=== PATIENT | male | born 1945 | race Caucasian/White ===

== ENCOUNTER → 2019-02-15 | Outpatient (CLI) | payer MEDICARE, OTHER, SELFPAY | END | disposition home or self-care (01) | LOC: LABSPEC 15:30 | PROVIDERS: Family Provider Family Medicine; PCP Family Medicine; Referring Provider Dermatology; Visit Provider Dermatology | DX: C44.529 Squamous cell carcinoma of skin of other part of trunk (principal); T81.40XA Infection following a procedure, unspecified, initial encounter | CPT/HCPCS: 87070; 87077; 87186; 87205 ==

== ENCOUNTER → 2019-05-01 12:34 | Outpatient (CLI) | payer MEDICARE, OTHER, SELFPAY ==
[2019-05-02 13:07] LABS: SJOGREN'S Anti-SS-A test < 0.2 AI (0.0-0.9); SJOGREN'S Anti-SS-B test < 0.2 AI (0.0-0.9)
[2019-05-02 13:25] LABS: ANTINUCLEAR ANTIBODIES DIRECT Negative (Negative); Anti-dsDNA Ab <1 IU/mL (0-9)
[2019-05-04 12:08] LABS: Anti-Nuclear Antibody Test Negative (.)
== END ==
PROVIDERS: Family Provider Family Medicine; PCP Family Medicine; Referring Provider Dermatology; Visit Provider Dermatology
DX: L56.8 Other specified acute skin changes due to ultraviolet radiation (principal); L82.0 Inflamed seborrheic keratosis; L53.8 Other specified erythematous conditions
CPT/HCPCS: 36415; 86038; 86225; 86235

== ENCOUNTER → 2019-09-10 14:17 | Outpatient (CLI) | payer MEDICARE, OTHER, SELFPAY | PROVIDERS: Referring Provider Dermatology; Visit Provider Dermatology | DX: L02.414 Cutaneous abscess of left upper limb (principal); C44.311 Basal cell carcinoma of skin of nose | CPT/HCPCS: 87070; 87077; 87186; 87205 ==

== ENCOUNTER → 2019-11-29 10:05 | Outpatient (CLI) | payer MEDICARE, OTHER, SELFPAY ==
[2019-11-29 12:26] LABS: Absolute Lymphocyte Count 0.83 X10^3/uL (0.83-4.51); Absolute Neutrophil Count 4.3 X10^3/uL (2.0-7.7); Basophil# 0.05 X10^3/uL; Basophil% 0.8 % (0-1); Eosinophil# 0.15 X10^3/uL; Eosinophils% 2.5 % (0-5); Hematocrit 34.1 % (40-54); Hemoglobin 11.5 g/dL (13.0-16.5); Lymphocyte # 0.83 X10^3/ul (4.0); Lymphocyte % 14.1 % (19-41); Mean Corp Hgb Conc 33.7 g/dL (32-36); Mean Corpuscular Hgb 30.5 pg (27.0-32.0); Mean Corpuscular Volume 90.5 fL (80-94); Mean Platelet Vol. 8.2 fl (6.2-12.0); Monocyte# 0.49 X10^3/uL; Monocyte% 8.3 % (0-10); NRBC Flagged by Analyzer 0 % (0-5); Neutrophil # 4.33 X10^3/uL (2.7-7.7); Neutrophil % 73.6 % (47-70); Platelet Count 146 K/mm3 (150-450); RBC Distribution Width CV 15.1 % (11.6-14.6); RBC Distribution Width SD 49.3 fl (35.1-43.9); Red Blood Count 3.77 M/mm3 (4.6-6.2); White Blood Count 5.9 K/mm3 (4.4-11.0)
[2019-11-29 13:00] LABS: Anion Gap 7 (5-15); BUN 11 mg/dL (7-18); BUN/Creat Ratio 11.6 RATIO (10-20); Calcium,Total 9.1 mg/dL (8.5-10.1); Chloride 101 mmol/L (98-107); Cholesterol 182 mg/dL (200); Creatinine, Serum 0.95 mg/dL (0.70-1.30); EST Glomerular Filtration Rate 83 mL/min (>60); Est Glom Filt Rate - Afr Amer 100 mL/min (>60); Glucose 90 mg/dL (74-106); High Density Lipoprotein 46 mg/dL; Potassium 3.5 mmol/L (3.5-5.1); Sodium Level 139 mmol/L (136-145); Triglycerides 91 mg/dL; Very Low Density Lipoprotein 18 mg/dL (5-40)
== END ==
PROVIDERS: PCP Family Medicine; Referring Provider Family Medicine; Visit Provider Family Medicine
DX: I10 Essential (primary) hypertension (principal); D64.9 Anemia, unspecified; Z13.1 Encounter for screening for diabetes mellitus; Z13.220 Encounter for screening for lipoid disorders
CPT/HCPCS: 36415; 80048; 80061; 85025

== ENCOUNTER → 2019-12-06 10:19 | Outpatient (CLI) | payer MEDICARE, OTHER, SELFPAY ==
[2019-12-06 12:44] LABS: Ferritin 220 ng/mL (26-388); Iron 67 ug/dL (65-175); Iron Binding Capacity,Total 302 ug/dL (250-450); PERCENT IRON SATURATION 22.2 % (15.0-55.0)
== END ==
PROVIDERS: PCP Family Medicine; Referring Provider Family Medicine; Visit Provider Family Medicine
DX: D64.9 Anemia, unspecified (principal)
CPT/HCPCS: 36415; 82728; 83540; 83550

== ENCOUNTER → 2020-01-15 10:12 | Outpatient (CLI) | payer MEDICARE, OTHER, SELFPAY | PROVIDERS: PCP Family Medicine; Referring Provider Dermatology; Visit Provider Dermatology | DX: L02.411 Cutaneous abscess of right axilla (principal); Z09 Encounter for follow-up examination after completed treatment for conditions other than malignant neoplasm; Z86.14 Personal history of Methicillin resistant Staphylococcus aureus infection | CPT/HCPCS: 87070; 87077; 87186; 87205 ==

== ENCOUNTER → 2020-03-18 13:38 | Outpatient (CLI) | payer MEDICARE, OTHER, SELFPAY ==
[2020-03-18 15:03] LABS: Absolute Lymphocyte Count 0.85 X10^3/uL (0.83-4.51); Absolute Neutrophil Count 6.5 X10^3/uL (2.0-7.7); Basophil# 0.05 X10^3/uL; Basophil% 0.6 % (0-1); Eosinophil# 0.15 X10^3/uL; Eosinophils% 1.8 % (0-5); Hematocrit 33.3 % (40-54); Hemoglobin 11.9 g/dL (13.0-16.5); Lymphocyte # 0.85 X10^3/ul (4.0); Lymphocyte % 10.5 % (19-41); Mean Corp Hgb Conc 35.7 g/dL (32-36); Mean Corpuscular Hgb 30.4 pg (27.0-32.0); Mean Corpuscular Volume 85.2 fL (80-94); Mean Platelet Vol. 8.4 fl (6.2-12.0); Monocyte% 6.2 % (0-10); NRBC Flagged by Analyzer 0 % (0-5); Neutrophil # 6.52 X10^3/uL (2.7-7.7); Neutrophil % 80.4 % (47-70); Platelet Count 156 K/mm3 (150-450); RBC Distribution Width CV 15.8 % (11.6-14.6); RBC Distribution Width SD 47.9 fl (35.1-43.9); Red Blood Count 3.91 M/mm3 (4.6-6.2); White Blood Count 8.1 K/mm3 (4.4-11.0)
== END ==
PROVIDERS: PCP Family Medicine; Referring Provider Family Medicine; Visit Provider Family Medicine
DX: D64.9 Anemia, unspecified (principal)
CPT/HCPCS: 36415; 85025

== ENCOUNTER 2020-04-03 05:21 | Day surgery (SDC) | payer MEDICARE, OTHER, SELFPAY ==
[2020-03-28 08:22] VITALS: BMI 26.2
--- NOTE | 2020-03-28 08:41 | HP_ITS ---
Intake Vital Signs 03/28/20 Height 5 ft 10 in 03/28/20 Weight: 182 lb 6 oz 03/28/20 BMI 26.2 03/28/20 BP 149/85 H 03/28/20 Blood Pressure Location Rt brachial 03/28/20 Position Sitting 03/28/20 Respiration 18 03/28/20 Pulse 65 03/28/20 Pulse Source Monitor 03/28/20 Temp 97.8 F 03/28/20 Temp Source Temporal 03/28/20 Pulse Oximetry (%) 98 03/28/20 Oxygen Delivery Method room air Intake Visit Reasons: Inguinal Hernia Chief Complaint: right inguinal pain Counter Cutter Required: No Is patient in pain?: No Allergies No Known Allergies Allergy (Unverified 03/28/20 08:23) Medications amlodipine 10 mg tablet 10 mg PO DAILY 03/28/20 [History Confirmed 03/28/20] labetalol 300 mg tablet 300 mg PO BID 03/28/20 [History Confirmed 03/28/20] PFS Medical History Right inguinal pain (Acute) Hypertension (Chronic) Surgical History History of appendectomy (Acute) History of tonsillectomy (Acute) Family History Mother Breast cancer Cancer Lung Cancer Father Heart disease Social History (Updated 03/28/20 @ 08:[address] Guillaume Hand MD) Smoking Status: Never smoker alcohol intake: current alcohol intake frequency: a few times a month substance use type: does not use HPI HPI HPI: ANGELY STEINER is a 75 M who presents to the office today for HPI HPI Surgical H&P: Yes HPI: ANGELY STEINER is a 75 M who presents to the office today for Evaluation of a right inguinal hernia. Patient has had a mass and a bulge with discomfort in his right inguinal area that has been going on for approximately 1 month. He notices it when he is standing mowing his yard it goes back it spontaneously when he lies down to sleep at night it is been increasing in size. He cannot recall any trauma to the area. He has had no change in his bowel or bladder habits. ROS General General: No weight change, appetite, fatigue, colon cancer, breast cancer or weakness HEENT HEENT: No difficulty swallowing, eye injury, eye surgery, swollen glands or hoarseness Endo Endocrine: No thyroid disease, diabetes mellitus, thyroid cancer, Hair loss, heat intolerance or cold intolerance Skin Skin: Yes rash; no changing moles Breast Breast: No left breast lump, right breast lump, nipple discharge, breast pain, abnormal mammogram, abnormal US or breast enlargement Musc Musculoskeletal: No back problems, arthritis, rheumatoid arthritis, gout or joint pain Cardio Cardiovascular: No murmur, pacemaker, heart disease, atrial fibrillation, high blood pressure, heart attack, heart stent, palpitations, shortness of breat with exertion or chest pain Psych Psychiatric: No depression, anxiety or hearing voices Resp Respiratory: No shortness of breath, No sleep apnea, No cough, No COPD, No asthma, No emphysema, No wheezing Gastro Gastrointestinal: No abdominal pain, No nausea or vomiting, No diarrhea, No constipation, No blood in stool, No acid reflux, No hemorrhoids, No ulcers, No gallbladder problem, No black,tarry stools [place] Hematologic: No blood thinners, No blood disorders, No bleeding, No anemia, No blood clots Neuro Neurologic: No system reviewed and no additional complaints, except as docu, No as per HPI, No abnormal walking, No abnormal hearing, No abnormal movements, No abnormal speech, No behavioral changes, No burning sensations, No confusion, No seizure-like activity, No unsteadiness, No dizziness, No localized weakness, No frequent falls, No headache(s), No lack of coordination, No loss of vision, No memory loss, No numbness, No other visual disturbances, No radiating pain, No restless legs, No sensory deficit, No fainting, No tingling, No tremor(s), No weakness, No other Exam Const General: no acute distress, well developed, well hydrated Orientation: oriented to person, oriented to place, oriented to time [facility] Head: normocephalic, atraumatic Ears: external ears normal Mouth: moist mucous membranes Eyes Sclera: sclerae normal Pupils: normal by confrontation Neck Neck: no lymphadenopathy noted Neck mass: No Thyroid: thyroid normal, symmetrical Chest Chest palpation & inspection: normal inspection of the chest Breast Palpation: No nipple discharge Resp Effort & Inspection: normal respiratory effort Auscultation: clear to auscultation bilaterally Percussion: percussion normal Cardio Rate: regular rate Rhythm: regular rhythm Heart Sounds: no murmurs GI Palpation: soft, no hepatosplenomegaly, no masses, tender Rectal Exam: other Other: A reducible right inguinal hernia is palpated. His left side seems firm without signs of herniation or weakness Rectal exam deferred. Extrem General: normal to inspection, no clubbing, cyanosis or edema Assessment & Plan Problems 1. Right inguinal hernia K40.90 Plan My plan is to perform a Laparoscopic right inguinal hernia repair with mesh. The planned surgical procedure was discussed extensively with the patient. The risks, benefits, anticipated outcomes and possible complication were mentioned. The patient understands that all hernia repair surgery has a chance of recurrence and/or chronic post-operative pain. My staff has also explained the procedure in understandable terms and the patient was given the option to take printed material concerning the planned procedure. The patient had the opportunity to ask questions concerning the planned procedure. The patient freely consents to the planned procedure. Coding Level of Care Code Off vis,new,level 3 Diagnoses Right inguinal hernia K40.90 03/28/20 0841 <Electronically signed by Guillaume fitzpatrick MD> Date _ Guillaume Hand MD I have re-examined the patient. There are no clinical changes since date of exam.
[2020-04-03] VITALS (9 sets, daily range): BP systolic 128–149; BP diastolic 70–91; PULSE 53–66; RESP 16; TEMP 36.2–37.1; O2SAT 98–100; BMI 25.9
--- NOTE | 2020-04-03 05:26 | EKG12_ITS ---
Test Reason : PRE OP Blood Pressure : / mmHG Vent. Rate : 065 BPM Atrial Rate : 065 BPM P-R Int : 186 ms QRS Dur : 096 ms QT Int : 440 ms P-R-T Axes : 000 031 007 degrees QTc Int : 457 ms Normal sinus rhythm Nonspecific ST abnormality Abnormal ECG When compared with ECG of 11-AUG-2001 05:25, Nonspecific T wave abnormality no longer evident in Anterolateral leads QT has lengthened Confirmed by VIKY CRONIN, BALJINDER ([id number]), editor continuity and script FLORY ROBBINS ([id number]) on 04/07/2020 11:52:48 AM Referred By: Guillaume Hand Confirmed By:SHITAL SALMON MD
[2020-04-03] MEDS: Lactated Ringers 1,000 ML 100 ML IV ×2 (06:16→10:09)
[2020-04-03] MEDS: Cefazolin 2 GM in 0.9% Normal Saline 100 ML IV (07:30)
--- NOTE | 2020-04-03 07:43 | PCM.DC.HER ---
Discharge Diet: Light diet - advance as tolerated Discharge Activity: Return to Normal Activity, May Drive - when you are no longer taking narcotic pain medications., May Shower - with the bandage in place 1-2 days after surgery. Lifting Restrictions: 20 pounds for 8 weeks. Additional Activity Instructions:: Climbing stairs is fine, walking is encouraged. Sitting in bed may be uncomfortable. Sitting up using your lateral muscles (sitting up sideways) is usually more comfortable. Do not drive, work heavy equipment of sign legal documents for 24 hours. If your hernia repair was an ingunial repair, you may have scrotal swelling, an ice pack and/or athletic support can provide more comfort. Pain medications may cause nausea, you should typically eat light foods as you take your pain medications. Pain medications may also cause constipation. If you have difficulty with this, discuss with your doctor. Call your doctor if your incision/area has: Continuous Slow Oozing, Sudden Increased Bleeding, Increased Pain/ Swelling, Increased Redness, Foul Smelling Discharge Call your doctor if you observe: Fever of 101 or Higher Suture Line Care: Avoid Pulling/Pushing, Avoid Pinching/Bending Additional Dressing/Incision Instructions:: Leave the operative bandage on for 2-3 days. When you remove the bandage, leave the steri-strips on place until your follow up appointment or they fall off. Allergies/Adverse Reactions: Allergies No Known Allergies Allergy (Unverified 04/02/20 08:12) Medications to take at Discharge amlodipine 10 mg tablet 10 mg PO DAILY 03/28/20 labetalol 300 mg tablet 300 mg PO BID 03/28/20 Oxycodone HCl/Acetaminophen [Percocet 5/325] 1 - 2 tablet PO Q4H PRN PRN 6 Days #30 tablet 04/03/20 The following prescriptions were given: Oxycodone HCl/Acetaminophen [Percocet 5/325] 1 - 2 tablet PO Q4H PRN PRN 6 Days #30 tablet PRN Reason: Pain Transmission Status: Received by [facility] Primary Care Physician: Geremias Morgan MD [Primary Care Provider] - Test Results: Test results from this visit will be discussed in further detail at your follow-up appointment, if applicable. Please Follow Up With: Guillaume Hand MD - [phone] When: Plan to have a follow up appointment in 7 days. Call to schedule.
[2020-04-03] MEDS: Bupivacaine Mpf 0.5% 30 ML VIAL (07:47)
--- NOTE | 2020-04-03 08:21 | PCM.OPRPT ---
Problem List (1) Right inguinal hernia Status: Acute Report of Operation Date of Procedure: 04/03/20 Pre-Operative Diagnosis: Right inguinal hernia Post-Operative Diagnosis: Same Surgery/Procedure Performed:: Laparoscopic repair of right inguinal hernia. Bard 3D max mesh lot number [id number] reference #[id number] Type of Anesthesia:: General Anesthesiologist: Shankar Nguyen Estimated Blood Loss (mL): < 25 cc Fluids Replaced: 1 L lr Description of Procedure: Patient was brought into the operating room. Placed in the supine position. Under excellent general trach intubation abdomen was sterilely prepped and draped in the usual fashion. Local was injected supraumbilically. Dissection was carried down to the fascia. The fascia grasped with a [place]. Varies needle was placed inside the abdomen. The abdomen was insufflated to 15 torr. A 10/12 trocar was placed without difficulty. It was flank by 2 #5 trochars placed under direct visualization. Patient was placed in the headdown and rotated to the left position. I scored the peritoneum on the right. I dissected down to Derek's ligament I then dissected laterally identifying the cord and vessel structures I dissected them free from the peritoneum this took quite a bit of time this was actually fairly adherent. I then dissected further laterally. I good pneumostasis patient did have an indirect inguinal hernia no direct hernia was identified I fashioned a large 3D max mesh into the wound. I tacked it to Derek's ligament with a pro-tacker I tacked it superiorly and laterally using sparing tacks. I reperitonealized the area using the pro-tacker I covered the mesh completely. Ilioinguinal nerve block was performed. I deflated the abdomen and remove the trochars fascia the umbilical port was closed with a [id number] stitch of 0 Vicryl. Skin incisions were closed with subcuticular stitches of 4-0 Monocryl. Steri-Strips were applied sterile dressings were applied and the patient tolerated the procedure well. - Admit VTE Documentation VTE Present on Admission: No VTE Mechan Device Prophylaxis: SCD's VTE Pharm Prophylaxis ordered?: No Reason prophylaxis not ordered:: Treatment Not Indicated [id number]: [id number] Lap ing hernia repair init
== END 2020-04-03 13:38 | disposition home or self-care (01) ==
LOC: SDC 05:25 → AC 05:25
PROVIDERS: PCP Family Medicine; Referring Provider Surgery; Visit Provider Surgery
PROC: (CPT 49650; principal; 2020-04-03 07:10)
DX: K40.90 Unilateral inguinal hernia, without obstruction or gangrene, not specified as recurrent (principal); I10 Essential (primary) hypertension; Z11.59 Encounter for screening for other viral diseases
CPT/HCPCS: 49650; 87635; 93005; G2023; J7120; C1781; U0004

== ENCOUNTER → 2020-09-02 10:33 | Outpatient (CLI) | payer MEDICARE, OTHER, SELFPAY ==
[2020-04-03 05:49] VITALS: BMI 25.9
[2020-09-02 12:25] LABS: Absolute Lymphocyte Count 0.57 X10^3/uL (0.83-4.51); Absolute Neutrophil Count 7.6 X10^3/uL (2.0-7.7); Basophil# 0.06 X10^3/uL; Basophil% 0.7 % (0-1); Eosinophil# 0.14 X10^3/uL; Eosinophils% 1.5 % (0-5); Hematocrit 31.4 % (40-54); Hemoglobin 10.7 g/dL (13.0-16.5); Lymphocyte # 0.57 X10^3/ul (4.0); Lymphocyte % 6.2 % (19-41); Mean Corp Hgb Conc 34.1 g/dL (32-36); Mean Corpuscular Hgb 30.7 pg (27.0-32.0); Mean Corpuscular Volume 90.2 fL (80-94); Monocyte# 0.73 X10^3/uL; NRBC Flagged by Analyzer 0 % (0-5); Neutrophil # 7.58 X10^3/uL (2.7-7.7); Neutrophil % 83.1 % (47-70); POSITIVE DIFFERENTIAL YES; Platelet Count 162 K/mm3 (150-450); RBC Distribution Width CV 16.9 % (11.6-14.6); RBC Distribution Width SD 55.8 fl (35.1-43.9); Red Blood Count 3.48 M/mm3 (4.6-6.2); White Blood Count 9.1 K/mm3 (4.4-11.0)
[2020-09-02 12:33] LABS: Differential Indicated SCAN CRITERIA MET
[2020-09-02 13:24] LABS: Hypochromasia RARE; Ovalocyte 3+; Platelet Estimate ADEQUATE (ADEQ)
== END ==
PROVIDERS: PCP Family Medicine; Referring Provider Ophthalmology; Visit Provider Ophthalmology
DX: H53.121 Transient visual loss, right eye (principal)
CPT/HCPCS: 36415; 85025

== ENCOUNTER → 2020-09-05 08:41 | Outpatient (CLI) | payer MEDICARE, OTHER, SELFPAY ==
[2020-04-03 05:49] VITALS: BMI 25.9
--- NOTE | 2020-09-05 08:44 | CDU_ITS ---
Reason For Study: vision loss Rt. Velocities/BP Lt. Velocities/BP Prox CCA 111.2/14.7 cm/sec. Prox CCA 156.9/18.1 cm/sec. Mid CCA 83.3/11.6 cm/sec. Mid CCA 94.8/14.4 cm/sec. Dist CCA 63.7/16.8 cm/sec. Dist CCA 89.3/16.3 cm/sec. Prox ICA 74.2/12.9 cm/sec. Prox ICA 77.3/18.3 cm/sec. Mid ICA 89.8/22.0 cm/sec. Mid ICA 98.1/20.8 cm/sec. Dist ICA 120.2/41.8 cm/sec. Dist ICA 82.6/11.7 cm/sec. Rt. ICA/CCA = 120.2/111.2=1.1. Lt. ICA/CCA = 98.1/94.8=1.0. Prox ECA 85.9/12.9 cm/sec. Prox ECA 85.6/18.1 cm/sec. Rt. Vert. 20.0/0.0 cm/sec. Lt. Vert. 87.5/12.8 cm/sec. Right Extracranial There is no significant atherosclerotic plaque noted in the right common carotid artery. There is heterogeneous, smooth atherosclerotic plaque noted in the right internal carotid artery. The atherosclerotic plaque causes acoustic shadowing. There is intimal thickening but no significant atherosclerotic plaque noted in the right external carotid artery. Antegrade flow is noted in the right vertebral artery. There is homogeneous, irregular atherosclerotic plaque noted in the right bulb. Left Extracranial There is intimal thickening but no significant atherosclerotic plaque noted in the left common carotid artery. There is heterogeneous, smooth atherosclerotic plaque noted in the left internal carotid artery. The atherosclerotic plaque causes acoustic shadowing. There is intimal thickening but no significant atherosclerotic plaque noted in the left external carotid artery. Antegrade flow is noted in the left vertebral artery. There is heterogeneous, irregular atherosclerotic plaque noted in the left bulb. Procedure Carotid Duplex [id number]. The study was technically difficult. Exam performed in department. Interpretation Summary Mild (<50%) stenosis right extracranial internal carotid. Mild (<50%) stenosis left extracranial internal carotid. A high resistance waveform and loss of diastolic flow are noted in the right vertebral artery, suggesting the presence of distal right vertebral artery stenosis or occlusion. Flow within the left verterbral artery is antegrade. Ordering Physician: Omar Trevino Referring Physician: Geremias Morgan Performed By: Trudi Sheldon, GALLITO, RVT
== END ==
PROVIDERS: PCP Family Medicine; Referring Provider Ophthalmology; Visit Provider Ophthalmology
DX: H53.121 Transient visual loss, right eye (principal)
CPT/HCPCS: 93880

== ENCOUNTER → 2020-10-08 10:27 | Outpatient (CLI) | payer MEDICARE, OTHER, SELFPAY ==
[2020-04-03 05:49] VITALS: BMI 25.9
[2020-10-10 20:07] LABS: Endomysial Antibody IgA Negative (Negative)
[2020-10-13 04:31] LABS: Deamidated Gliadin IgA 4 units (0-19); Deamidated Gliadin IgG 3 units (0-19); Immunoglobulin A 182 mg/dL (61-437); t-Transglutaminase IgA <2 U/mL (0-3)
== END ==
PROVIDERS: PCP Family Medicine; Referring Provider Dermatology; Visit Provider Dermatology
DX: C44.729 Squamous cell carcinoma of skin of left lower limb, including hip (principal); L30.9 Dermatitis, unspecified
CPT/HCPCS: 36415; 82784; 83516; 86255

== ENCOUNTER 2020-12-31 09:01 | Outpatient (RCR) | payer MEDICARE, OTHER, SELFPAY ==
[2020-04-03 05:49] VITALS: BMI 25.9
== END 2020-12-31 23:59 ==
LOC: IMMUN 09:01
PROVIDERS: PCP Family Medicine; Visit Provider Family Medicine
DX: Z23 Encounter for immunization (principal)
CPT/HCPCS: 0011A; 0012A

== ENCOUNTER 2022-01-19 09:00 | Outpatient (CLI) | payer MEDICARE, OTHER, SELFPAY ==
[2022-01-19 10:10] LABS: Absolute Neutrophil Count 4.9 X10^3/uL (2.0-7.7); Basophil# 0.05 X10^3/uL; Basophil% 0.8 % (0-1); Eosinophil# 0.21 X10^3/uL; Eosinophils% 3.2 % (0-5); Hemoglobin 11.9 g/dL (13.0-16.5); Lymphocyte % 12.3 % (19-41); Mean Corpuscular Hgb 30.8 pg (27.0-32.0); Mean Corpuscular Volume 88.1 fL (80-94); Mean Platelet Vol. 9.1 fl (6.2-12.0); Monocyte# 0.51 X10^3/uL; Monocyte% 7.8 % (0-10); NRBC Flagged by Analyzer 0 % (0-5); Neutrophil # 4.92 X10^3/uL (2.7-7.7); Neutrophil % 75.6 % (47-70); Platelet Count 149 K/mm3 (150-450); RBC Distribution Width CV 15.3 % (11.6-14.6); RBC Distribution Width SD 49.1 fl (35.1-43.9); Red Blood Count 3.86 M/mm3 (4.6-6.2); White Blood Count 6.5 K/mm3 (4.4-11.0)
[2022-01-19 10:34] LABS: Vitamin B12 290 pg/mL (211-911)
[2022-01-19 10:49] LABS: ALB/GLOB Ratio 1.2 RATIO (0.9-2.4); AST(SGOT) 20 U/L (15-37); Alanine Aminotransfer ALT/SGPT 21 U/L (16-61); Alkaline Phosphatase 123 U/L (45-117); Anion Gap 5 (5-15); BUN 15 mg/dL (7-18); BUN/Creat Ratio 16.9 RATIO (10-20); Calcium,Total 9.2 mg/dL (8.5-10.1); Chloride 104 mmol/L (98-107); Creatinine, Serum 0.89 mg/dL (0.70-1.30); EST Glomerular Filtration Rate 89 mL/min (>60); Est Glom Filt Rate - Afr Amer 108 mL/min (>60); Ferritin 183 ng/mL (26-388); Globulin 3.4 g/dL (2.2-4.2); Glucose 99 mg/dL (74-106); Iron 83 ug/dL (65-175); Iron Binding Capacity,Total 336 ug/dL (250-450); Magnesium 1.7 mg/dL (1.6-2.6); PSA,Total - Annual Screen 5.38 ng/mL (0.00-4.00); Potassium 2.9 mmol/L (3.5-5.1); Protein, Total 7.4 g/dL (6.4-8.2); Sodium Level 139 mmol/L (136-145); Uric Acid 7.1 mg/dL (3.5-7.2)
[2022-01-19 10:54] LABS: Microalbumin:Creatinine Ratio 315.8 mg/g CRE (<30 mg/g CRE)
[2022-01-19 16:10] LABS: Cholesterol 182 mg/dL (200); High Density Lipoprotein 54 mg/dL; Triglycerides 61 mg/dL; Very Low Density Lipoprotein 12 mg/dL (5-40)
== END 2022-01-19 23:59 | disposition home or self-care (01) ==
LOC: MFPLAB 09:02
PROVIDERS: PCP Family Medicine; Referring Provider Family Medicine; Visit Provider Family Medicine
DX: D64.9 Anemia, unspecified (principal); I48.91 Unspecified atrial fibrillation; I10 Essential (primary) hypertension; Z12.5 Encounter for screening for malignant neoplasm of prostate
CPT/HCPCS: 36415; 80053; 80061; 82043; 82570; 82607; 82728; 83540; 83550; 83735; 84153; 84550; 85025; G0103

== ENCOUNTER 2022-02-19 12:12 | Outpatient (CLI) | payer MEDICARE, OTHER, SELFPAY ==
--- NOTE | 2022-02-19 12:15 | RAD_ITS ---
STUDY: XR Chest 2 Views 02/19/2022 12:24 PM REASON FOR EXAM: Male, 76 years old. CHEST PAIN Atrial Fibrillation COMPARISON: None TECHNIQUE: XR Chest 2 Views FINDINGS: There is no demonstrated pleural abnormality. Normal heart size. Normal mediastinum. Normal wei. Prominent appearing increased interstitial lung markings. Normal visualized pulmonary arteries. There is atherosclerotic calcification of the aortic arch with tortuosity. There are diffuse degenerative changes of the visualized thoracic spine. There is degenerative osteoarthritis of the bilateral shoulders. There is no demonstrated abnormality of the visualized soft tissue structures of the upper abdomen. RAD/Chest PA and Lateral IMPRESSION: There are no acute findings. Electronically Signed: Drew Roy MD at 17:00 EDT ,
[2022-02-19 12:56] LABS: Absolute Lymphocyte Count 0.86 X10^3/uL (0.83-4.51); Absolute Neutrophil Count 7.7 X10^3/uL (2.0-7.7); Basophil# 0.07 X10^3/uL; Basophil% 0.7 % (0-1); Eosinophil# 0.15 X10^3/uL; Eosinophils% 1.6 % (0-5); Hematocrit 37.2 % (40-54); Hemoglobin 12.8 g/dL (13.0-16.5); Lymphocyte # 0.86 X10^3/ul (0.83-4.51); Mean Corp Hgb Conc 34.4 g/dL (32-36); Mean Corpuscular Hgb 30.4 pg (27.0-32.0); Mean Corpuscular Volume 88.4 fL (80-94); Mean Platelet Vol. 8.1 fl (6.2-12.0); Monocyte# 0.65 X10^3/uL; Monocyte% 6.8 % (0-10); NRBC Flagged by Analyzer 0 % (0-5); Neutrophil % 80.9 % (47-70); Platelet Count 158 K/mm3 (150-450); RBC Distribution Width CV 15.4 % (11.6-14.6); RBC Distribution Width SD 49.7 fl (35.1-43.9); Red Blood Count 4.21 M/mm3 (4.6-6.2); White Blood Count 9.5 K/mm3 (4.4-11.0)
[2022-02-19 13:45] LABS: Anion Gap 6 (5-15); BUN 16 mg/dL (7-18); BUN/Creat Ratio 18.5 RATIO (10-20); Calcium,Total 8.9 mg/dL (8.5-10.1); Chloride 102 mmol/L (98-107); Creatinine, Serum 0.86 mg/dL (0.70-1.30); EST Glomerular Filtration Rate 92 mL/min (>60); Est Glom Filt Rate - Afr Amer 111 mL/min (>60); Glucose 105 mg/dL (74-106); Magnesium 1.9 mg/dL (1.6-2.6); Potassium 3.6 mmol/L (3.5-5.1); Sodium Level 139 mmol/L (136-145); Thyroid Stim Hormone (TSH) 1.59 uIU/mL (0.358-3.74)
== END 2022-02-19 23:59 | disposition home or self-care (01) ==
LOC: RAD 12:15 → LAB 12:27
PROVIDERS: PCP Family Medicine; Referring Provider Internal Medicine Cardiovascular Disease; Visit Provider Internal Medicine Cardiovascular Disease
DX: I48.91 Unspecified atrial fibrillation (principal); I10 Essential (primary) hypertension
CPT/HCPCS: 36415; 71046; 80048; 83735; 84443; 85025

== ENCOUNTER → 2022-04-01 | Outpatient (CLI) | payer MEDICARE, OTHER, SELFPAY ==
[2022-04-01 10:46] LABS: Anion Gap 7 (5-15); BUN 20 mg/dL (7-18); BUN/Creat Ratio 23.3 RATIO (10-20); Calcium,Total 9.1 mg/dL (8.5-10.1); Chloride 103 mmol/L (98-107); Creatinine, Serum 0.86 mg/dL (0.70-1.30); EST Glomerular Filtration Rate 92 mL/min (>60); Est Glom Filt Rate - Afr Amer 112 mL/min (>60); Glucose 101 mg/dL (74-106); Potassium 3.7 mmol/L (3.5-5.1); Sodium Level 138 mmol/L (136-145)
== END | disposition home or self-care (01) ==
LOC: MFPLAB 08:09
PROVIDERS: PCP Family Medicine; Referring Provider Family Medicine; Visit Provider Family Medicine
DX: E87.6 Hypokalemia (principal)
CPT/HCPCS: 36415; 80048

== ENCOUNTER → 2022-04-15 | Outpatient (CLI) | payer MEDICARE, OTHER, SELFPAY ==
[2022-04-15 10:21] LABS: Basophil# 0.05 X10^3/uL; Basophil% 0.6 % (0-1); Eosinophil# 0.22 X10^3/uL; Eosinophils% 2.7 % (0-5); Hemoglobin 12.4 g/dL (13.0-16.5); Lymphocyte % 12.4 % (19-41); Mean Corp Hgb Conc 35.4 g/dL (32-36); Mean Corpuscular Volume 87.5 fL (80-94); Mean Platelet Vol. 8.4 fl (6.2-12.0); Monocyte# 0.71 X10^3/uL; Monocyte% 8.8 % (0-10); NRBC Flagged by Analyzer 0 % (0-5); Neutrophil # 6.02 X10^3/uL (2.7-7.7); Neutrophil % 74.4 % (47-70); Platelet Count 140 K/mm3 (150-450); RBC Distribution Width CV 15.8 % (11.6-14.6); RBC Distribution Width SD 49.6 fl (35.1-43.9); White Blood Count 8.1 K/mm3 (4.4-11.0)
[2022-04-15 10:39] LABS: Anion Gap 7 (5-15); BUN 17 mg/dL (7-18); Calcium,Total 8.8 mg/dL (8.5-10.1); Chloride 103 mmol/L (98-107); EST Glomerular Filtration Rate 88 mL/min (>60); Est Glom Filt Rate - Afr Amer 106 mL/min (>60); Glucose 101 mg/dL (74-106); Magnesium 1.7 mg/dL (1.6-2.6); Potassium 2.9 mmol/L (3.5-5.1); Sodium Level 140 mmol/L (136-145)
== END | disposition home or self-care (01) ==
LOC: MFPLAB 08:51
PROVIDERS: PCP Family Medicine; Referring Provider Family Medicine; Visit Provider Family Medicine
DX: I10 Essential (primary) hypertension (principal); D64.9 Anemia, unspecified
CPT/HCPCS: 36415; 80048; 83735; 85025

== ENCOUNTER → 2022-05-03 | Outpatient (CLI) | payer MEDICARE, OTHER, SELFPAY ==
--- NOTE | 2022-05-03 06:48 | ECHOD_ITS ---
Reason For Study: Afib, Aflutter Procedure This was a 2D Doppler, Color Flow transthoracic echocardiogram. The exam was of adequate technical quality. Exam performed in department. Left Ventricle Normal LV size. Left ventricular systolic function is normal. The estimated ejection fraction is 60 %. Unable to assess diastolic dysfunction. No regional wall motion abnormalities noted. Right Ventricle Normal RV size. Normal systolic function. Atria The left atrium is severely enlarged. The right atrium is moderately enlarged. No doppler evidence for ASD. Mitral Valve There is no mitral annular calcification. Mild focal mitral valve calcification of the posterior leaflet. Mild-Moderate (1-2+) mitral valve insufficiency. Tricuspid Valve Normal tricuspid valve. Moderate (2+) eccentric tricuspid valve insufficiency. Right ventricular systolic pressure estimated to be 52 mmHg. Aortic Valve Trisinus/trileaflet aortic valve. Mild diffuse aortic valve thickening. Mild focal aortic valve calcification. Trivial aortic valve insufficiency. Pulmonic Valve The pulmonic valve is not well visualized. Moderately severe (3+) pulmonic valve insufficiency. Great Vessels Normal sized aortic root. Pericardium/Pleural No pericardial effusion. MMode/2D Measurements & Calculations LVIDd: 5.0 cm IVSd: 1.2 cm Ao root diam: 3.6 cm LVIDs: 3.6 cm LVPWd: 1.2 cm RVDd: 3.1 cm FS: 27.4 % LAV(MOD-bp): 143.7 ml LVAd ap4: 23.8 cm2 LVAd ap2: 26.7 cm2 LAV(MOD-bp) Indexed: 71.2 ml/m2 LVLd ap4: 7.1 cm LVLd ap2: 7.8 cm LAV(MOD-sp2): 152.0 ml EDV(MOD-sp4): 66.4 ml EDV(MOD-sp2): 74.0 ml LAV(MOD-sp4): 134.2 ml EDV(sp4-el): 68.0 ml EDV(sp2-el): 77.1 ml LVAs ap4: 14.6 cm2 LVAs ap2: 16.0 cm2 LVLs ap4: 6.6 cm LVLs ap2: 7.0 cm ESV(MOD-sp4): 29.3 ml ESV(MOD-sp2): 32.5 ml ESV(sp4-el): 27.4 ml ESV(sp2-el): 31.0 ml EF(MOD-sp4): 55.9 % EF(MOD-sp2): 56.1 % EF(sp4-el): 59.7 % SV(MOD-sp4): 37.1 ml SV(MOD-sp2): 41.5 ml SV(sp4-el): 40.6 ml LA dimension(2D): 5.2 cm LA A4 area: 35.7 cm2 RA A4 area: 24.3 cm2 Doppler Measurements & Calculations MV E max hari: 89.3 cm/sec Ao V2 max: 111.9 cm/sec LV V1 max: 86.1 cm/sec Ao max P.0 mmHg LV V1 max P.0 mmHg Ao V2 mean: 83.8 cm/sec Ao mean P.0 mmHg Ao V2 VTI: 21.4 cm PA V2 max: 86.7 cm/sec PI end-d hari: 145.4 cm/sec TR max hari: 332.8 cm/sec TR max P.3 mmHg ECHO/Echo Complete Interpretation Summary Left ventricular systolic function is normal. The estimated ejection fraction is 60 %. The left atrium is severely enlarged. The right atrium is moderately enlarged. Mild focal mitral valve calcification of the posterior leaflet. Mild-Moderate (1-2+) mitral valve insufficiency. Moderate (2+) eccentric tricuspid valve insufficiency. Mild diffuse aortic valve thickening. Mild focal aortic valve calcification. Trivial aortic valve insufficiency. Moderately severe (3+) pulmonic valve insufficiency. Right ventricular systolic pressure estimated to be 52 mmHg. Unable to assess diastolic dysfunction. Ordering Physician: Al Figueroa Referring Physician: Shankar Callahan Performed By: America Paulino, GALLITO, RVT
--- NOTE | 2022-05-03 10:47 | STRESSREP ---
Stress Test Report Date: 05-03-2022 Procedure: Pharmacologic stress nuclear imaging study Indications: Atrial fibrillation; hypertension; history of pericarditis Consent: Per the patient Procedure: The patient underwent pharmacologic (Regadenoson 0.4mg ) evaluation with a peak heart rate of 111 beats per minute (76%predicted maximal heart rate) and a peak blood pressure of 170/100 mmHg. The baseline ECG demonstrated atrial fibrillation; PVC; nonspecific ST/T wave abnormality. The peak pharmacologic ECG demonstrated continued atrial fibrillation; PVC; continued nonspecific ST/T wave abnormality. There were occasional PVCs pretest, during pharmacologic infusion, and recovery. There was no complaint of chest discomfort during pharmacologic infusion or recovery. The examination was discontinued secondary to completion of protocol. Impression: 1. Pharmacologic (Regadenoson) evaluation 2. Peak pharmacologic ECG with with no obvious ECG changes. 3. There were no cardiac dysrhythmias pretest, during pharmacologic infusion, or recovery. 4. Nuclear images pending Myocardial perfusion imaging study: Technique: The patient was injected with 11.6 millicuries of technetium 99m Cardiolite and subsequently rest SPECT Cardiolite nuclear imaging was obtained in the horizontal long, vertical long, and short axis views. The patient underwent pharmacologic (Regadenoson) evaluation with a peak heart rate of 111 beats per minute (76% percent predicted maximal heart rate) and a peak blood pressure of 170/100 mmHg. The patient was injected with 33.1 millicuries of technetium 99m Cardiolite and subsequently stress SPECT Cardiolite nuclear imaging was obtained in the horizontal long, vertical long, and short axis views. A gated Cardiolite study at peak stress was obtained. Interpretation: Rest and stress SPECT Cardiolite nuclear imaging status post realignment, normalization, and attenuation correction demonstrate relative uniform tracer uptake and myocardial perfusion appearing within normal limits. There is end systolic thickening and brightening. The gated Cardiolite study demonstrates myocardial thickening and inward wall motion. The reported LVEF is 53%. Impression: 1. Rest and stress SPECT Cardiolite nuclear imaging demonstrate relative uniform tracer uptake and myocardial perfusion appearing within normal limits. 2. The gated Cardiolite study reports an LVEF of 53%. This note was generated with Apptioation software. It may contain incorrect words, spelling, and punctuation that were not noted in checking the note before signing.
== END | disposition home or self-care (01) ==
LOC: CVS 06:46
PROVIDERS: PCP Family Medicine; Referring Provider Internal Medicine Cardiovascular Disease; Visit Provider Internal Medicine Cardiovascular Disease
DX: R94.31 Abnormal electrocardiogram [ECG] [EKG] (principal); I48.91 Unspecified atrial fibrillation; I48.92 Unspecified atrial flutter; I10 Essential (primary) hypertension
CPT/HCPCS: 78452; 93017; 93306; A9500; A4216; J2785

== ENCOUNTER → 2022-05-17 | Outpatient (CLI) | payer MEDICARE, OTHER, SELFPAY ==
--- NOTE | 2022-05-17 09:21 | RAD_ITS ---
STUDY: X-RAY LEFT FOOT, great toe REASON FOR EXAM: Male, 77 years old. Pain and swelling TECHNIQUE: 3 view(s) of the toe were obtained. COMPARISON: None. FINDINGS: Bones are demineralized There is an acute nondisplaced fracture in the proximal medial aspect of the distal phalanx of the great toe with soft tissue swelling Normal visualized metatarsus. There is arthrosis of the metatarsophalangeal (M.T.P.) joint. Degenerative arthrosis of the interphalangeal joint. Age consistent PIP and DIP joint arthrosis and the lesser toes. Nonspecific soft tissue swelling. RAD/Toe(s) Min 2 Views IMPRESSION: Osteopenia with acute, nondisplaced fracture in the proximal medial corner of the distal phalanx of the great toe with soft tissue swelling Polyarticular arthrosis No other demonstrated fracture Electronically Signed: Akshat Curran MD at 11:49 EDT ,
[2022-05-17 12:15] LABS: Absolute Lymphocyte Count 0.77 X10^3/uL (0.83-4.51); Absolute Neutrophil Count 7.7 X10^3/uL (2.0-7.7); Basophil# 0.05 X10^3/uL; Basophil% 0.5 % (0-1); Eosinophil# 0.11 X10^3/uL; Eosinophils% 1.2 % (0-5); Hemoglobin 12.4 g/dL (13.0-16.5); Lymphocyte # 0.77 X10^3/ul (0.83-4.51); Lymphocyte % 8.1 % (19-41); Mean Corp Hgb Conc 33.5 g/dL (32-36); Mean Corpuscular Hgb 31.2 pg (27.0-32.0); Mean Platelet Vol. 8.8 fl (6.2-12.0); Monocyte% 8.4 % (0-10); NRBC Flagged by Analyzer 0 % (0-5); Neutrophil # 7.72 X10^3/uL (2.7-7.7); Neutrophil % 80.8 % (47-70); Platelet Count 224 K/mm3 (150-450); RBC Distribution Width SD 54.7 fl (35.1-43.9); RET-HE 30.8 pg (30-35); Red Blood Count 3.98 M/mm3 (4.6-6.2); Reticulocyte Count 2.47 % (0.5-1.5); White Blood Count 9.6 K/mm3 (4.4-11.0)
[2022-05-17 12:28] LABS: Vitamin B12 1482 pg/mL (211-911)
[2022-05-17 12:37] LABS: ALB/GLOB Ratio 0.9 RATIO (0.9-2.4); AST(SGOT) 20 U/L (15-37); Alanine Aminotransfer ALT/SGPT 19 U/L (16-61); Albumin, Serum 3.5 g/dL (3.2-5.0); Alkaline Phosphatase 109 U/L (45-117); Anion Gap 8 (5-15); BUN 16 mg/dL (7-18); BUN/Creat Ratio 17.1 RATIO (10-20); Calcium,Total 8.8 mg/dL (8.5-10.1); Chloride 98 mmol/L (98-107); Creatinine, Serum 0.94 mg/dL (0.70-1.30); EST Glomerular Filtration Rate 84 mL/min (>60); Est Glom Filt Rate - Afr Amer 101 mL/min (>60); Globulin 3.7 g/dL (2.2-4.2); Glucose 90 mg/dL (74-106); Iron 70 ug/dL (65-175); Iron Binding Capacity,Total 284 ug/dL (250-450); Magnesium 1.9 mg/dL (1.6-2.6); PERCENT IRON SATURATION 24.6 % (15.0-55.0); Protein, Total 7.2 g/dL (6.4-8.2); Sodium Level 140 mmol/L (136-145)
== END | disposition home or self-care (01) ==
PROVIDERS: PCP Family Medicine; Referring Provider Family Medicine; Visit Provider Family Medicine
DX: M79.675 Pain in left toe(s) (principal); E53.8 Deficiency of other specified B group vitamins; E87.6 Hypokalemia; D64.9 Anemia, unspecified; I10 Essential (primary) hypertension
CPT/HCPCS: 36415; 73660; 80053; 82607; 82746; 83540; 83550; 83735; 85025; 85045

== ENCOUNTER → 2022-05-25 | Outpatient (CLI) | payer MEDICARE, OTHER, SELFPAY ==
[2022-05-25 16:05] LABS: Anion Gap 6 (5-15); BUN 18 mg/dL (7-18); BUN/Creat Ratio 18.1 RATIO (10-20); Chloride 103 mmol/L (98-107); EST Glomerular Filtration Rate 78 mL/min (>60); Est Glom Filt Rate - Afr Amer 94 mL/min (>60); Glucose 104 mg/dL (74-106); Potassium 3.6 mmol/L (3.5-5.1); Sodium Level 141 mmol/L (136-145)
== END | disposition home or self-care (01) ==
LOC: MTLAB 11:58
PROVIDERS: PCP Family Medicine; Referring Provider Nurse Practitioner Family; Visit Provider Nurse Practitioner Family
DX: E87.6 Hypokalemia (principal)
CPT/HCPCS: 36415; 80048

== ENCOUNTER → 2022-06-08 | Outpatient (CLI) | payer MEDICARE, OTHER, SELFPAY ==
[2022-06-08 18:09] LABS: ALB/GLOB Ratio 1.2 RATIO (0.9-2.4); AST(SGOT) 27 U/L (15-37); Alanine Aminotransfer ALT/SGPT 27 U/L (16-61); Albumin, Serum 3.9 g/dL (3.2-5.0); Alkaline Phosphatase 118 U/L (45-117); Anion Gap 6 (5-15); BUN 17 mg/dL (7-18); Chloride 105 mmol/L (98-107); Creatinine, Serum 0.89 mg/dL (0.70-1.30); EST Glomerular Filtration Rate 88 mL/min (>60); Est Glom Filt Rate - Afr Amer 107 mL/min (>60); Globulin 3.3 g/dL (2.2-4.2); Glucose 104 mg/dL (74-106); Potassium 3.6 mmol/L (3.5-5.1); Protein, Total 7.2 g/dL (6.4-8.2); Sodium Level 139 mmol/L (136-145)
== END | disposition home or self-care (01) ==
LOC: MFPLAB 15:51
PROVIDERS: PCP Family Medicine; Referring Provider Family Medicine; Visit Provider Family Medicine
DX: I10 Essential (primary) hypertension (principal)
CPT/HCPCS: 36415; 80053

== ENCOUNTER → 2022-08-02 | Outpatient (CLI) | payer MEDICARE, OTHER, SELFPAY ==
[2022-08-02 10:17] LABS: ALB/GLOB Ratio 1.2 RATIO (0.9-2.4); AST(SGOT) 22 U/L (15-37); Alanine Aminotransfer ALT/SGPT 28 U/L (16-61); Albumin, Serum 3.8 g/dL (3.2-5.0); Alkaline Phosphatase 149 U/L (45-117); Anion Gap 10 (5-15); BUN 14 mg/dL (7-18); Calcium,Total 8.8 mg/dL (8.5-10.1); Chloride 101 mmol/L (98-107); Creatinine, Serum 0.94 mg/dL (0.70-1.30); EST Glomerular Filtration Rate 84 mL/min (>60); Est Glom Filt Rate - Afr Amer 101 mL/min (>60); Globulin 3.2 g/dL (2.2-4.2); Glucose 104 mg/dL (74-106); Potassium 3.1 mmol/L (3.5-5.1); Sodium Level 141 mmol/L (136-145)
== END | disposition home or self-care (01) ==
LOC: MFPLAB 08:40
PROVIDERS: PCP Family Medicine; Referring Provider Family Medicine; Visit Provider Family Medicine
DX: I10 Essential (primary) hypertension (principal)
CPT/HCPCS: 36415; 80053

== ENCOUNTER → 2022-10-01 | Outpatient (CLI) | payer MEDICARE, OTHER, SELFPAY ==
[2022-10-01 10:03] LABS: ALB/GLOB Ratio 1.3 RATIO (0.9-2.4); AST(SGOT) 23 U/L (15-37); Alanine Aminotransfer ALT/SGPT 30 U/L (16-61); Albumin, Serum 3.8 g/dL (3.2-5.0); Alkaline Phosphatase 131 U/L (45-117); Anion Gap 7 (5-15); BUN 14 mg/dL (7-18); BUN/Creat Ratio 15.4 RATIO (10-20); Calcium,Total 8.6 mg/dL (8.5-10.1); Chloride 93 mmol/L (98-107); Creatinine, Serum 0.91 mg/dL (0.70-1.30); EST Glomerular Filtration Rate 86 mL/min (>60); Est Glom Filt Rate - Afr Amer 104 mL/min (>60); Glucose 99 mg/dL (74-106); Magnesium 1.8 mg/dL (1.6-2.6); Potassium 4.4 mmol/L (3.5-5.1); Protein, Total 6.8 g/dL (6.4-8.2); Sodium Level 130 mmol/L (136-145)
[2022-10-01 10:14] LABS: Microalbumin,Random Urine 76.9 mg/L (NO RANGE EST.); Microalbumin:Creatinine Ratio 111.1 mg/g CRE (<30 mg/g CRE)
== END | disposition home or self-care (01) ==
LOC: MTLAB 08:12
PROVIDERS: PCP Family Medicine; Referring Provider Family Medicine; Visit Provider Family Medicine
DX: I10 Essential (primary) hypertension (principal); E87.6 Hypokalemia
CPT/HCPCS: 36415; 80053; 82043; 82570; 83735

== ENCOUNTER → 2022-11-16 | Outpatient (CLI) | payer MEDICARE, OTHER, SELFPAY ==
[2022-11-16 13:54] LABS: Anion Gap 6 (5-15); BUN 17 mg/dL (7-18); BUN/Creat Ratio 17.3 RATIO (10-20); Chloride 103 mmol/L (98-107); Creatinine, Serum 0.98 mg/dL (0.70-1.30); EST Glomerular Filtration Rate 79 mL/min (>60); Est Glom Filt Rate - Afr Amer 96 mL/min (>60); Glucose 108 mg/dL (74-106); Potassium 4.4 mmol/L (3.5-5.1); Sodium Level 137 mmol/L (136-145)
== END | disposition home or self-care (01) ==
LOC: LAB 12:38
PROVIDERS: PCP Family Medicine; Visit Provider Nurse Practitioner Family
DX: E87.6 Hypokalemia (principal)
CPT/HCPCS: 36415; 80048

== ENCOUNTER → 2023-10-10 | Outpatient (CLI) | payer MEDICARE, OTHER, SELFPAY ==
[2023-10-10 15:48] LABS: Absolute Lymphocyte Count 0.86 X10^3/uL (0.83-4.51); Absolute Neutrophil Count 6.5 X10^3/uL (2.0-7.7); Basophil# 0.08 X10^3/uL; Eosinophil# 0.13 X10^3/uL; Eosinophils% 1.6 % (0-5); Hematocrit 36.5 % (40-54); Lymphocyte # 0.86 X10^3/ul (0.83-4.51); Lymphocyte % 10.3 % (19-41); Mean Corp Hgb Conc 32.9 g/dL (32-36); Mean Corpuscular Hgb 30.5 pg (27.0-32.0); Mean Corpuscular Volume 92.9 fL (80-94); Mean Platelet Vol. 8.9 fl (6.2-12.0); Monocyte# 0.68 X10^3/uL; Monocyte% 8.2 % (0-10); NRBC Flagged by Analyzer 0 % (0-5); Neutrophil % 78.1 % (47-70); Platelet Count 131 K/mm3 (150-450); RBC Distribution Width CV 15.3 % (11.6-14.6); RBC Distribution Width SD 52.4 fl (35.1-43.9); Red Blood Count 3.93 M/mm3 (4.6-6.2); White Blood Count 8.3 K/mm3 (4.4-11.0)
[2023-10-10 16:22] LABS: Microalbumin:Creatinine Ratio 111.3 mg/g CRE (<30 mg/g CRE)
[2023-10-10 16:26] LABS: ALB/GLOB Ratio 1.1 RATIO (0.9-2.4); AST(SGOT) 18 U/L (15-37); Alanine Aminotransfer ALT/SGPT 22 U/L (16-61); Albumin, Serum 3.8 g/dL (3.2-5.0); Alkaline Phosphatase 133 U/L (45-117); Anion Gap 5 (5-15); BUN 16 mg/dL (7-18); BUN/Creat Ratio 17.1 RATIO (10-20); Chloride 104 mmol/L (98-107); Creatinine, Serum 0.94 mg/dL (0.70-1.30); EST Glomerular Filtration Rate 83 mL/min (>60); Est Glom Filt Rate - Afr Amer 101 mL/min (>60); Globulin 3.6 g/dL (2.2-4.2); Glucose 99 mg/dL (74-106); Protein, Total 7.4 g/dL (6.4-8.2); Sodium Level 138 mmol/L (136-145); Thyroid Stim Hormone (TSH) 1.22 uIU/mL (0.358-3.74)
== END | disposition home or self-care (01) ==
LOC: MFPLAB 14:06
PROVIDERS: PCP Family Medicine; Visit Provider Family Medicine
DX: I27.20 Pulmonary hypertension, unspecified (principal); I48.91 Unspecified atrial fibrillation; I10 Essential (primary) hypertension
CPT/HCPCS: 36415; 80053; 82043; 82570; 83735; 84443; 85025

== ENCOUNTER → 2024-06-29 | Outpatient (CLI) | payer MEDICARE, OTHER, SELFPAY ==
[2024-06-29 12:19] LABS: Absolute Lymphocyte Count 0.72 X10^3/uL (0.83-4.51); Absolute Neutrophil Count 7.2 X10^3/uL (2.0-7.7); Basophil# 0.06 X10^3/uL; Basophil% 0.7 % (0-1); Eosinophil# 0.11 X10^3/uL; Eosinophils% 1.2 % (0-5); Hematocrit 34.4 % (40-54); Hemoglobin 11.5 g/dL (13.0-16.5); Lymphocyte # 0.72 X10^3/ul (0.83-4.51); Lymphocyte % 8.1 % (19-41); Mean Corp Hgb Conc 33.4 g/dL (32-36); Mean Corpuscular Hgb 30.3 pg (27.0-32.0); Mean Corpuscular Volume 90.5 fL (80-94); Mean Platelet Vol. 8.3 fl (6.2-12.0); Monocyte# 0.68 X10^3/uL; Monocyte% 7.7 % (0-10); NRBC Flagged by Analyzer 0 % (0-5); Neutrophil # 7.22 X10^3/uL (2.7-7.7); Neutrophil % 81.4 % (47-70); Platelet Count 136 K/mm3 (150-450); RBC Distribution Width CV 15.5 % (11.6-14.6); RBC Distribution Width SD 51.3 fl (35.1-43.9); White Blood Count 8.9 K/mm3 (4.4-11.0)
[2024-06-29 13:34] LABS: ALB/GLOB Ratio 1.1 RATIO (0.9-2.4); AST(SGOT) 26 U/L (15-37); Alanine Aminotransfer ALT/SGPT 21 U/L (16-61); Albumin, Serum 3.9 g/dL (3.2-5.0); Alkaline Phosphatase 186 U/L (45-117); Anion Gap 10 (5-15); BUN 18 mg/dL (7-18); BUN/Creat Ratio 18.4 RATIO (10-20); Calcium,Total 8.9 mg/dL (8.5-10.1); Chloride 100 mmol/L (98-107); Creatinine, Serum 0.98 mg/dL (0.70-1.30); EST Glomerular Filtration Rate 79 mL/min (>60); Est Glom Filt Rate - Afr Amer 96 mL/min (>60); Globulin 3.7 g/dL (2.2-4.2); Glucose 92 mg/dL (74-106); Magnesium 2.3 mg/dL (1.6-2.6); PSA,Total- Diagnostic 4.89 ng/mL (0.0-4.0); Potassium 4.2 mmol/L (3.5-5.1); Protein, Total 7.6 g/dL (6.4-8.2); Sodium Level 133 mmol/L (136-145)
[2024-06-29 13:41] LABS: Microalbumin,Random Urine 64.1 mg/L (NO RANGE EST.); Microalbumin:Creatinine Ratio 56.7 mg/g CRE (<30 mg/g CRE)
[2024-06-29 14:16] LABS: Vitamin B12 > 2000 pg/mL (211-911)
== END | disposition home or self-care (01) ==
LOC: MFPLAB 10:39
PROVIDERS: PCP Family Medicine; Visit Provider Family Medicine
DX: I27.20 Pulmonary hypertension, unspecified (principal); I48.91 Unspecified atrial fibrillation; N18.1 Chronic kidney disease, stage 1; E53.8 Deficiency of other specified B group vitamins; R97.20 Elevated prostate specific antigen [PSA]
CPT/HCPCS: 36415; 80053; 82043; 82570; 82607; 82746; 83735; 84153; 84443; 85025

== ENCOUNTER → 2024-07-20 | Outpatient (CLI) | payer MEDICARE, OTHER, SELFPAY ==
[2024-07-20 18:42] LABS: PTHIN 108.4 pg/mL (18.4-80.1)
[2024-07-20 18:43] LABS: Vitamin D,25 Hydroxy 30.6 ng/mL
[2024-07-20 19:02] LABS: ALB/GLOB Ratio 1.1 RATIO (0.9-2.4); AST(SGOT) 22 U/L (15-37); Alanine Aminotransfer ALT/SGPT 17 U/L (16-61); Albumin, Serum 3.8 g/dL (3.2-5.0); Alkaline Phosphatase 166 U/L (45-117); Anion Gap 9 (5-15); BUN 12 mg/dL (7-18); BUN/Creat Ratio 14.3 RATIO (10-20); Calcium,Total 9.5 mg/dL (8.5-10.1); Chloride 102 mmol/L (98-107); Creatinine, Serum 0.84 mg/dL (0.70-1.30); EST Glomerular Filtration Rate 94 mL/min (>60); Est Glom Filt Rate - Afr Amer 114 mL/min (>60); Globulin 3.5 g/dL (2.2-4.2); Glucose 90 mg/dL (74-106); Protein, Total 7.3 g/dL (6.4-8.2); Sodium Level 136 mmol/L (136-145)
[2024-07-24 13:08] LABS: PROEL- A/G Ratio 1.5 (0.7-1.7); PROEL- Alpha-1 Globulin 0.3 g/dL (0.0-0.4); PROEL- Alpha-2 Globulin 0.5 g/dL (0.4-1.0); PROEL- Gamma Globulin 0.9 g/dL (0.4-1.8); PROEL- Globulin, Total 2.7 g/dL (2.2-3.9); PROEL- TOTAL PROTEIN 6.7 g/dL (6.0-8.5); PROEL-M-Spike Not Observed g/dL (Not Observed)
== END | disposition home or self-care (01) ==
LOC: MFPLAB 13:42
PROVIDERS: PCP Family Medicine; Visit Provider Family Medicine
DX: D64.9 Anemia, unspecified (principal); R79.89 Other specified abnormal findings of blood chemistry
CPT/HCPCS: 36415; 80053; 82306; 83970; 84156; 84165

== ENCOUNTER → 2025-07-02 | Outpatient (CLI) | payer MEDICARE, OTHER, SELFPAY ==
[2025-07-02 15:51] LABS: PSA,Total - Annual Screen 6.21 ng/mL (0.02-4.00)
== END | disposition home or self-care (01) ==
LOC: MFPLAB 13:39
PROVIDERS: PCP Family Medicine
DX: Z12.5 Encounter for screening for malignant neoplasm of prostate (principal)
CPT/HCPCS: 36415; 84153; G0103

== ENCOUNTER 2025-07-03 12:12 | Emergency (ER) | payer MEDICARE, OTHER, SELFPAY ==
[2025-07-03 12:13] VITALS: BP 153/94; PULSE 94; RESP 17; TEMP 36.6; O2SAT 100; BMI 26.1
--- NOTE | 2025-07-03 13:18 | RAD_ITS ---
PROCEDURE: CHEST 1 VIEW (PORTABLE) 07/03/2025 REASON FOR EXAM: CORONARY ARTERY DISEASE TECHNIQUE: Frontal view of the chest. COMPARISON: 02/19/2022 FINDINGS: Hardware: EKG leads overlie the chest Heart: The heart size is normal. Lungs: The lungs are clear. Bones: Degenerative changes are identified within the thoracic spine. Other: RAD/Chest 1 View (Portable) IMPRESSION: No acute pulmonary process Reading Location: [id number]
--- NOTE | 2025-07-03 13:18 | EKG12_ITS ---
Test Reason : HIGH BP Blood Pressure : */* mmHG Vent. Rate : 76 BPM Atrial Rate : * BPM P-R Int : * ms QRS Dur : 94 ms QT Int : 410 ms P-R-T Axes : * 45 -1 degrees QTcB Int : 461 ms Atrial fibrillation Nonspecific ST and T wave abnormality Abnormal ECG Confirmed by MATTHEW WATERS ([id number]), managing editor JILLIAN JUNG ([id number]) on 07/04/2025 1:50:27 PM Referred By: YOANA/AR Confirmed By: MATTHEW WATERS
--- NOTE | 2025-07-03 13:19 | EDS_ITS ---
HPI History of Present Illness Chief Complaint: Weakness Narrative Narrative: 80-year-old male past medical history of atrial fibrillation on Eliquis presents with about a weeks worth of lightheadedness and near syncope. He denies any chest pain or shortness of breath, but states he feels off. He states he cannot tell whether he is in atrial fibrillation or not. He denies any exacerbating or alleviating factors to his lightheadedness. There were times when he felt off balance from right leg sciatica and had to hold onto something. Once again he denies any chest pain or shortness of breath, no nausea or vomiting, no diaphoresis, no diarrhea, no dysuria or hematuria. Some n ecessarily worse with standing. He had his friend bring him to the emergency department because he was afraid to drive. No headaches. No vertigo. PFSH [facility] Medical History Hypokalemia Pericarditis Atrial fibrillation Essential hypertension Right inguinal hernia Right inguinal pain Home Medications ?Medication ?Instructions ?Recorded ?Last Taken ?Type apixaban 5 mg tablet 5 mg PO BID 02/19/22 5 History cyanocobalamin (vitamin B-12) 3,000 mcg PO DAILY 02/1907/03/25 History 1,000 mcg tablet magnesium oxide 400 mg PO DAILY 02/19/22 History metoprolol succinate 100 mg 100 mg PO DAILY 05/04/22 0 07/02/25 History tablet,extended release 24 hr eplerenone 25 mg tablet 25 mg PO DAILY started by TEMO Burrell Dr. 10/26/22 07/03/25 History Shankar Callahan dupilumab 300 mg/2 mL subcutaneous 300 mg subcut Q2W 0 07/25/24 06/25/25 History pen injector (Dupixent) losartan 25 mg tablet 25 mg PO DAILY #90 TABLETS 1 12/20/23 07/02/25 Rx amlodipine 5 mg tablet 5 mg PO BID #180 tabs 07/03/25 Rx Allergy/AdvReac Type Severity Reaction Status Date / Time No Known Allergies Allergy Verified 07/03/25 12:16 Family History Mother Breast cancer Cancer Lung Cancer Father Heart disease Surgical History Hx of right inguinal hernia repair History of appendectomy History of tonsillectomy Social History Smoking Status: Never smoker alcohol intake: current alcohol intake frequency: a few times a week Alcohol type: beer and wine substance use type: does not use caffeine: Yes Type: tea Number of servings: 1 ROS ROS ED ROS Narrative Review of systems positive for lightheadedness intermittently over the last week. No chest pain, no shortness of breath, no fevers or chills, no cough, no nausea, no vomiting, no vertiginous type symptoms. Not necessarily worse with standing. Positive low back and sciatica pain. EXAM Physical Exam Narrative Exam Narrative: Afebrile. Vital signs noted. Nontoxic-appearing. Cardiovascular examination reveals an irregularly irregular rhythm that is rate controlled. Lungs are clear to auscultation bilaterally. Abdomen is soft and nontender without guarding or rebound. Positive bowel sounds. Neurological examination is nonfocal, nonlateralizing. Awake, alert, oriented x 3. No appreciable pedal edema bilaterally. Moves all extremities. Const Vital Signs: 07/03/25 12:13 07/03/25 13:35 07/03/25 13:41 Temperature 97.9 F Temperature Source Oral Pulse Rate 94 Pulse Rate [Lying] 88 Pulse Rate [Sitting (for 1 minute prior to obtaining)] 76 Pulse Rate [Standing (for 1 minute prior to obtaining)] 83 Respiratory Rate 17 Respiratory Effort Normal Respiratory Pattern Normal Blood Pressure 153/94 H Blood Pressure [Lying] 167/88 H Blood Pressure [Sitting (for 1 minute prior to obtaining)] 159/94 H Blood Pressure [Standing (for 1 minute prior to obtaining)] 160/96 H Blood Pressure Mean 113 Blood Pressure Mean [Lying] 114 Blood Pressure Mean [Sitting (for 1 minute prior to obtaining)] 115 Blood Pressure Mean [Standing (for 1 minute prior to obtaining)] 117 Pulse Ox 100 Oxygen Delivery Method Room Air 07/03/25 14:13 Temperature Temperature Source Pulse Rate 75 Pulse Rate [Lying] Pulse Rate [Sitting (for 1 minute prior to obtaining)] Pulse Rate [Standing (for 1 minute prior to obtaining)] Respiratory Rate Respiratory Effort Respiratory Pattern Blood Pressure Blood Pressure [Lying] Blood Pressure [Sitting (for 1 minute prior to obtaining)] Blood Pressure [Standing (for 1 minute prior to obtaining)] Blood Pressure Mean Blood Pressure Mean [Lying] Blood Pressure Mean [Sitting (for 1 minute prior to obtaining)] Blood Pressure Mean [Standing (for 1 minute prior to obtaining)] Pulse Ox Oxygen Delivery Method MDM MDM MDM Narrative Medical decision making narrative: The differential diagnosis includes but not limited to dehydration versus intravascular volume depletion versus orthostatic hypotension. I do not feel he needs a CT of the brain. He has a normal neurological examination. There has been no trauma. His symptoms have been ongoing for a week. EKG was obtained and interpreted by myself independently as atrial fibrillation at [address] changes. No STEMI. He is not having chest pain so I do not feel he requires a troponin. Patient will be bolused normal saline and orthostatics obtained as well. Chest x-ray will be obtained to help rule out a pneumonia but the history and physical does not support this as he is had no cough or fever. Urinalysis will be obtained as well to look for infection but he does not have any dysuria or hematuria. I will check a CBC and CMP as well. I reviewed his orthostatics and they are negative for drop in blood pressure or tachycardia. I reviewed his laboratory work and he has slight elevation of his white count of 11.8 which I think is nonspecific, hemoglobin normal at 13.5, platelet count normal at 154. BMP shows hyponatremia of 132 with chloride 96. He was bolused normal saline 1 L intravenously. Glucose appropriately elevated at 122 with normal anion gap of 14. Urinalysis is negative for infection with 0 WBCs, no ketones. On my independent interpretation of his chest x-ray in 1 view, there is no evidence of an acute process, no pneumonia or pneumothorax. I reviewed his radiology report which confirms my independent interpretation. Upon repeat examination, he states he feels no different. He was reassured that I do not feel that he requires observation or admission at this time. While I am unsure as to the cause of his lightheadedness, it may be more from his atrial fibrillation as he reiterates that he does not feel when he goes in or out of atrial fibrillation, and was diagnosed with that 3 to 5 years ago. 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 He is currently rate controlled and is taking Eliquis as well. Return instructions to the emergency department were reviewed. Disposition is discharged home in stable condition. History & Record Review Discussion w/independent historian: Patient Additional record(s) reviewed:: No prior records (No prior ED visits) Lab Data Attestation: I reviewed the patient's lab results. Labs: Laboratory Results - last 24 hr 07/03/25 07/03/25 13:06 14:42 WBC 11.8 H RBC 4.23 L Hgb 13.5 Hct 37.4 L MCV 88.4 MCH 31.9 MCHC 36.1 H RDW Std Deviation 51.0 H RDW Coeff of Roberto 15.8 H Plt Count 154 MPV 8.2 Immature Gran % (Auto) 0.900 Neut % (Auto) 83.9 H Lymph % (Auto) 6.7 L [place] % (Auto) 7.4 Eos % (Auto) 0.6 Baso % (Auto) 0.5 Absolute Neuts (auto) 9.9 H Absolute Lymphs (auto) 0.79 L Nucleated RBC % 0 Sodium 132 L Potassium 3.6 Chloride 96 L Carbon Dioxide 22.7 Anion Gap 14 BUN 19 Creatinine 0.99 Estim Creat Clear Calc 63.50 Est GFR (MDRD) Non-Af 78 BUN/Creatinine Ratio 18.8 Glucose 122 H Calcium 9.3 Urine Color Yellow Urine Clarity Clear Urine pH 6.5 Ur Specific [place] 1.010 Urine Protein 100 H Urine Glucose (UA) Normal Urine Ketones Negative Urine Occult Blood 10 H Urine Nitrite Negative Urine Bilirubin Negative Urine Urobilinogen Normal Ur Leukocyte Esterase Negative Urine RBC 0 SEEN Urine WBC 0 SEEN Ur Squamous Epith Cells 0 SEEN Urine Bacteria 0 SEEN Urine Mucus 0 SEEN Radiography Chest X-Ray - ED: 1 View, Read by ED Physician, Read by Radiologist and No Acute Disease Diagnostic Testing: Clinical Impression(s) from Imaging Studies Chest X-Ray 07/03/25 13:18 IMPRESSION: No acute pulmonary process Reading Location: [facility] Discharge Plan Triage Chief Complaint: Weakness ED Provider: George Riley Dx/Rx/DC Orders Clinical Impression: Hyponatremia, Lightheadedness, Atrial fibrillation Instructions: ED AFIB, ED Hyponatremia, ED Near-Fainting, Uncertain Cause Prescriptions: No Action apixaban 5 mg tablet 5 mg PO BID magnesium oxide 400 mg magnesium tablet 400 mg PO DAILY cyanocobalamin (vitamin B-12) 1,000 mcg tablet 3,000 mcg PO DAILY Dupixent Pen 300 mg/2 mL pen injector 300 mg subcut Q2W metoprolol succinate 100 mg tablet extended release 24 hr 100 mg PO DAILY eplerenone 25 mg tablet 25 mg PO DAILY losartan 25 mg tablet 25 mg PO DAILY Qty: 90 3RF amlodipine 5 mg tablet 5 mg PO BID Qty: 180 3RF Primary Care Provider: Shankar Callahan Referrals: Shankar Callahan MD [Primary Care Provider] - 3-5 Days if not improving Geremias Paulino NP, SCRAP SEPARATOR-C [Med Staff - Adv Practice Prof] - 3-5 Days if not improving Activity Restrictions/Additional Instructions: Follow-up with both cardiology and your primary care provider in the next 3 to 5 days. Return to the emergency department with new or worsening symptoms. Print Language: Guyanese Disposition Disposition: Home, Self Care
[2025-07-03 13:35] VITALS: BP 159/94; BP 160/96; BP 167/88; PULSE 76; PULSE 83; PULSE 88
[2025-07-03 13:35] LABS: Hematocrit 37.4 % (40-54); Hemoglobin 13.5 g/dL (13.0-16.5); Immature Granulocytes Count 0.100 X10^3/uL (0.0-0.0); Mean Corp Hgb Conc 36.1 g/dL (32-36); Mean Corpuscular Volume 88.4 fL (80-94); Mean Platelet Vol. 8.2 fl (6.2-12.0); NRBC Flagged by Analyzer 0 % (0-5); Platelet Count 154 K/mm3 (150-450); RBC Distribution Width CV 15.8 % (11.6-14.6); RBC Distribution Width SD 51.0 fl (35.1-43.9); Red Blood Count 4.23 M/mm3 (4.6-6.2); White Blood Count 11.8 K/mm3 (4.4-11.0)
[2025-07-03] MEDS: 0.9% Normal Saline (1000mL) 1,000 ML 1000 ML IV (13:35)
[2025-07-03 13:58] LABS: Anion Gap 14 (5-15); BUN 19 mg/dL (4-19); BUN/Creat Ratio 18.8 RATIO (10-20); Calcium,Total 9.3 mg/dL (7.6-11.0); Carbon Dioxide 22.7 mmol/L (21.0-32.0); Chloride 96 mmol/L (98-108); Estimated Creatinine Clearance 63.50 ml/min (50-250); Glucose 122 mg/dL (70-99); Potassium 3.6 mmol/L (3.3-5.1)
[2025-07-03 14:13] VITALS: PULSE 75
[2025-07-03 14:46] LABS: Mucous, Urine 0 SEEN /hpf (<or=2+); Red Blood Cells-Urine 0 SEEN /hpf (0-5); Squamous Epithelial Cells - UA 0 SEEN /hpf (0-5)
[2025-07-03 14:48] LABS: Color, Urine Yellow (Yellow); Glucose, Dipstick Normal (Normal); Ketone-Dipstick Negative (Negative); Leukocyte Esterase-Dipstick Negative /ul (Negative); Nitrite-Dipstick Negative (Negative); Occult Blood-Urine 10 /ul (Negative); Protein-Dipstick 100 mg/dl (Negative); Specific Gravity, Urine 1.010 (1.002-1.030); Urine Bilirubin Dipstick Negative (Negative)
[2025-07-03 15:46] VITALS: BP 155/90; PULSE 81; RESP 18; TEMP 36.7; O2SAT 100
== END 2025-07-03 15:47 | disposition home or self-care (01) ==
PROVIDERS: Emergency Provider Emergency Medicine; PCP Family Medicine; Visit Provider Emergency Medicine
DX: E87.1 Hypo-osmolality and hyponatremia (principal); I48.91 Unspecified atrial fibrillation; R42 Dizziness and giddiness; I10 Essential (primary) hypertension; Z79.899 Other long term (current) drug therapy; Z79.01 Long term (current) use of anticoagulants
CPT/HCPCS: 71045; 80048; 81001; 85025; 93005; 96360; 99285; A4216

== ENCOUNTER 2025-07-04 11:01 | Observation (INO) | payer MEDICARE, OTHER, SELFPAY ==
[2025-07-04] VITALS (11 sets, daily range): BP systolic 133–169; BP diastolic 87–108; PULSE 67–116; RESP 12–19; TEMP 36.6–37.4; O2SAT 97–100; BMI 26.1; BMI 25.6
--- NOTE | 2025-07-04 12:10 | CT_ITS ---
EXAM: NONCONTRAST CT SCAN OF THE HEAD CLINICAL HISTORY: Tremor, weakness COMPARISON: None TECHNIQUE: Serial axial series through the head were obtained without contrast. 2-D coronal and sagittal reformats were then obtained. FINDINGS: Brain: There is low-density in the deep white matter on the right and left and in the left occipital lobe, likely chronic ischemic changes. There is no acute intracranial hemorrhage, midline shift or mass effect. There are atherosclerotic vascular calcifications involving the bilateral carotid siphons. The sella and pineal gland regions appear unremarkable. There is no evidence of cerebellar tonsillar herniation. Ventricles: There is no acute hydrocephalus. Basilar cisterns are patent. Paranasal sinuses: Well-aerated Mastoid air cells: Well-aerated. Calvarium: The bony calvarium is intact. Orbits: The bilateral globes are symmetric, without retrobulbar compressive mass lesion or hemorrhage. CT/Brain/Head without Contrast IMPRESSION: There is low-density in the deep white matter on the right and left and in the left occipital lobe, likely chronic ischemic changes. Reading Location: [facility]
--- NOTE | 2025-07-04 12:11 | EKG12_ITS ---
Test Reason : DIZZY Blood Pressure : */* mmHG Vent. Rate : 81 BPM Atrial Rate : * BPM P-R Int : * ms QRS Dur : 96 ms QT Int : 396 ms P-R-T Axes : * 51 -53 degrees QTcB Int : 460 ms Atrial fibrillation Nonspecific ST and T wave abnormality Abnormal ECG Confirmed by MATTHEW WATERS ([id number]), material expeditor WADE CHEEMA ([id number]) on 07/09/2025 6:27:15 AM Referred By: Confirmed By: MATTHEW WATERS
[2025-07-04 12:25] LABS: Hematocrit 38.7 % (40-54); Hemoglobin 13.8 g/dL (13.0-16.5); Immature Granulocytes Count 0.090 X10^3/uL (0.0-0.0); Mean Corp Hgb Conc 35.7 g/dL (32-36); Mean Corpuscular Volume 89.6 fL (80-94); Mean Platelet Vol. 8.3 fl (6.2-12.0); NRBC Flagged by Analyzer 0 % (0-5); Platelet Count 157 K/mm3 (150-450); RBC Distribution Width CV 15.8 % (11.6-14.6); RBC Distribution Width SD 51.8 fl (35.1-43.9); Red Blood Count 4.32 M/mm3 (4.6-6.2); White Blood Count 9.8 K/mm3 (4.4-11.0)
[2025-07-04 13:07] LABS: AST(SGOT) 31 U/L (<=37); Alanine Aminotransfer ALT/SGPT 18 U/L (<=46); Albumin, Serum 4.7 g/dL (3.4-4.8); Alkaline Phosphatase 189 U/L (40-129); Anion Gap 16 (5-15); BUN 17 mg/dL (4-19); BUN/Creat Ratio 16.5 RATIO (10-20); Calcium,Total 9.8 mg/dL (7.6-11.0); Carbon Dioxide 23.2 mmol/L (21.0-32.0); Chloride 96 mmol/L (98-108); Estimated Creatinine Clearance 61.63 ml/min (50-250); Globulin 3.3 g/dL (2.2-4.2); Glucose 143 mg/dL (70-99); Magnesium 2.0 mg/dL (1.5-2.2); Potassium 3.3 mmol/L (3.3-5.1)
--- NOTE | 2025-07-04 14:41 | EX.ED.DYSGE1 ---
HPI History of Present Illness Chief Complaint: Weakness Informant: patient Narrative Narrative: Patient is a 72-year-old male with history of hypertension, atrial fibrillation (diagnosed couple months ago) and history of pericarditis presenting with generalized shakiness and weakness. States he just has not been feeling well but symptoms are bit vague. He saw his doctor 2 days ago for his annual Medicare check. Yesterday he was seen in the ER for lightheadedness and feel like he is going to pass out. He was found to be in atrial fibrillation with rate control but otherwise had negative workup. Was given IV fluids and states he felt better and was discharged home. This morning he felt shaky again and lightheaded. He felt like he could pass out but is quite vague about this. He checked his blood pressure last night and it was elevated at 142/80 when he is normally 115/70. His blood pressure was elevated for EMS. States he did not feel safe to drive. He notes for the past week he has had some intermittent tingling in his right leg but currently denies any. He has been having some ongoing issues with pain coming from his lower back going into his right leg. He does live home alone. Came in for further evaluation given his recurrent symptoms. No other complaints or concerns reported at this time. [facility] Medical History Hypokalemia Pericarditis Atrial fibrillation Essential hypertension Right inguinal hernia Right inguinal pain Home Medications ?Medication ?Instructions ?Recorded ?Last Taken ?Type apixaban 5 mg tablet 5 mg PO BID blood thinner 02/19/22 07/03/25 History cyanocobalamin (vitamin B-12) 3,000 mcg PO DAILY suppliment 02/19/22 07/03/25 History 1,000 mcg tablet metoprolol succinate 100 mg 100 mg PO DAILY heart 05/04/22 07/02/25 History tablet,extended release 24 hr eplerenone 25 mg tablet 25 mg PO DAILY heart 10/26/22 07/03/25 History dupilumab 300 mg/2 mL subcutaneous 300 mg subcut Q2W exema 07/25/24 06/25/25 History pen injector (Dupixent) losartan 25 mg tablet 25 mg PO DAILY blood pressure #90 10/19/24 07/02/25 Rx TABLETS amlodipine 5 mg tablet 5 mg PO BID blood pressure #180 04/29/25 07/03/25 Rx tabs magnesium citrate 125 mg capsule 250 mg PO BID suppliment 07/04/25 Unknown History Allergy/AdvReac Type Severity Reaction Status Date / Time No Known Allergies Allergy Verified 07/04/25 11:05 Family History Mother Breast cancer Cancer Lung Cancer Father Heart disease Surgical History Hx of right inguinal hernia repair History of appendectomy History of tonsillectomy Social History (Updated 07/04/25 @ 18:31 by Rand Wilde) Smoking Status: Never smoker alcohol intake: current alcohol intake frequency: a few times a week Alcohol type: beer and wine substance use type: does not use caffeine: Yes Type: tea Number of servings: 1 ROS ROS ED Constitutional Constitutional ED: Reports other Details: Feeling shaky, lightheaded, generalized weakness ; Denies chills, fever(s) or sweats Eyes Eyes: Denies change in vision ENT ENT ED: Denies rhinorrhea or sore throat Cardiovascular Cardiovascular: Denies chest pain, palpitations or racing heartbeat Respiratory/Chest Respiratory/Chest: Denies cough or dyspnea Gastrointestinal Gastrointestinal: Denies abdominal pain, nausea or vomiting Integumentary Denies rash Neurologic Neurologic: Reports paresthesias RLE and weakness; Denies headache(s) Psychiatric Psychiatric: Denies anxiety or depression Hematologic/Lymphatic Hematologic/Lymphatic: Reports easy bleeding, easy bruising and other Details: On Eliquis EXAM Physical Exam Const Vital Signs: 07/04/25 11:02 07/04/25 11:02 07/04/25 12:02 Temperature 97.9 F Temperature Source Temporal Pulse Rate 116 H 83 Respiratory Rate 18 16 Respiratory Effort Normal Non-Labored Respiratory Pattern Normal Blood Pressure 168/94 H 160/96 H Blood Pressure Mean 118 117 Pulse Ox 98 100 Oxygen Delivery Method Room Air 07/04/25 13:00 07/04/25 14:00 07/04/25 15:00 Temperature Temperature Source Pulse Rate 80 81 73 Respiratory Rate 16 12 12 Respiratory Effort Respiratory Pattern Blood Pressure 146/87 H 159/96 H 153/101 H Blood Pressure Mean 106 117 118 Pulse Ox 100 100 100 Oxygen Delivery Method Room Air 07/04/25 15:32 Temperature 98.2 F Temperature Source Pulse Rate 70 Respiratory Rate 16 Respiratory Effort Respiratory Pattern Blood Pressure 169/105 H Blood Pressure Mean 126 Pulse Ox 100 Oxygen Delivery Method Positive well nourished and well developed General Appearance ED: well developed and NAD HEENT Reports moist mucous membranes Negative for trauma Eyes PERRL and EOMs intact bilaterally Eyes Narrative: No nystagmus Neck supple and no JVD Neck Narrative: Normal range of motion of the neck Chest Wall inspection of chest normal and palpation of chest normal Resp normal respiratory effort and clear to auscultation bilaterally Cardio regular rate and no murmurs Rhythm: abnormal rhythm irregularly irregular GI normal to inspection, nondistended, normoactive bowel sounds and non-tender Extremity normal to inspection General Extremety ED: Negative for edema or tenderness General Extremity: Negative for edema Neuro oriented x3, CN's II-XII intact bilaterally and no sensory deficits noted Neuro Narrative: Mildly tremulous in the hands. NIH equals 0. Normal coordination. No truncal ataxia. Sensorium / Orientation: alert Motor Exam: strength 5/5 throughout; Negative for general weakness Skin no rashes or lesions noted and no wounds MDM MDM MDM Narrative Medical decision making narrative: Patient sooner evaluated for recurrent generalized weakness and lightheadedness. He is concerned he might fall at home. He has normal vital signs in the emergency room except for mild hypertension. Was seen for the same complaint yesterday and had a largely negative workup. Did have a mild leukocytosis 11.8 which is nonspecific yesterday. Differential includes arrhythmia, transient hypotension, autonomic instability, thyroid abnormality, symptomatic anemia, electrolyte derangement and intracranial hemorrhage. Lower suspicion for stroke given his normal neurologic exam at this time. Workup including CBC, CMP, magnesium and TSH largely negative. His bicarb is normal however his anion gap is 16 and glucose is mildly of at 143. I do not think this is new onset diabetes or DKA at this point. Total bilirubin is minimally elevated at 2.25 and alkaline phosphatase mildly elevated at 189 but these are nonspecific. These are only minimally elevated from his baseline. CT of the brain does not show any acute intracranial process but does show likely chronic ischemic changes. As patient does not have any chest pain or acute changes on his EKG I do not think he requires repeat troponin. Patient does not feel comfortable going home with his continued symptoms. Will speak with hospitalist for admission/observation. Lab Data Attestation: I reviewed the patient's lab results. Labs: Laboratory Results - last 24 hr 07/04/25 11:15 WBC 9.8 RBC 4.32 L Hgb 13.8 Hct 38.7 L MCV 89.6 MCH 31.9 MCHC 35.7 RDW Std Deviation 51.8 H RDW Coeff of Roberto 15.8 H Plt Count 157 MPV 8.3 Immature Gran % (Auto) 0.900 Neut % (Auto) 85.4 H Lymph % (Auto) 6.6 L [place] % (Auto) 6.0 Eos % (Auto) 0.5 Baso % (Auto) 0.6 Absolute Neuts (auto) 8.4 H Absolute Lymphs (auto) 0.65 L Nucleated RBC % 0 Sodium 135 Potassium 3.3 Chloride 96 L Carbon Dioxide 23.2 Anion Gap 16 H BUN 17 Creatinine 1.02 Estim Creat Clear Calc 61.63 Est GFR (MDRD) Non-Af 75 BUN/Creatinine Ratio 16.5 Glucose 143 H Calcium 9.8 Magnesium 2.0 Total Bilirubin 2.25 H AST 31 ALT 18 Alkaline Phosphatase 189 H Total Protein 8.0 Albumin 4.7 Globulin 3.3 Albumin/Globulin Ratio 1.4 Vitamin B12 3896 H Vitamin D 25-Hydroxy 49.1 TSH 1.320 Radiography Diagnostic Testing: Clinical Impression(s) from Imaging Studies Brain CT 07/04/25 12:10 IMPRESSION: There is low-density in the deep white matter on the right and left and in the left occipital lobe, likely chronic ischemic changes. [facility] Rhythm Strip Rhythm Strip: A-fib Rate: 81 Ectopy: None EKG Initial EKG: Attestation: I personally reviewed and interpreted this EKG as follows: Interpretation: Atrial Fibrillation Comments: Atrial fibrillation rate of 81 bpm Normal axis Normal intervals Nonspecific ST and T wave abnormalities however no acute change compared to prior EKG from yesterday Management Discussion w/another healthcare provider: Hospitalist Discharge Plan Disposition Disposition: Acute Care Hospital [facility] Discharge Date/Time: 07/04/25 18:22
--- NOTE | 2025-07-04 15:46 | CASEMGMT ---
Care Management Face to Face with patient for initial transition planning/care coordination assessment in the ED.? This policy writer introduced self and role at [facility]. Patient alert and oriented. Patient willing to participate in assessment and is able to answer all questions appropriately.? Care providers, pharmacy, and demographics verified. Admitting Diagnosis: ??Weakness Other diagnosis history: ?hypokalemia, afib, pericarditis, hypertension PCP: ?[place] Specialists: ?[place] Preferred Pharmacy: [facility] Insurance: ?Medicare Prescription Benefit: ?yes Living Will/HPOA: ?completed LNOK: ?Brother Living Arrangements: ?patient lives alone in a one story home, independent with ADLs and IADLs.? Transportation: ?patient drives DME: ?cane, blood pressure cuff HHC: ?none SNF/Rehab: ?none Community Resources: none Behavioral Health History: ?none ? Patient goals: Patient wishes to discharge home, denies need for home health care at this time. Patient denies any further needs or concerns at this time. Disposition Plan: admission to acute; RN CM/SW to follow for discharge planning needs that may arise. Leigh Parada, CORPORATE EVENTS DIRECTOR, JANITORIAL ASSISTANT
--- NOTE | 2025-07-04 15:53 | PCM.HP.STD ---
HPI - General General Date of Admission: 07/04/25 Date of Service: 07/04/25 Chief Complaint: Lightheaded HPI Narrative ANGELY STEINER, is a 80-year-old male with a history of A-fib, pericarditis 20 years ago, hypertension presented [facility] ED 07/04/2025 due to lightheadedness and feeling like he is going to pass out. Was seen in the ED yesterday but workup was normal and he was feeling little bit better so he was discharged. This morning he woke up feeling shaky and lightheaded again so he came to the ED. Only other complaint he had was some intermittent tingling in right leg but has had ongoing lower back issues. In the ED patient afebrile, blood pressure 146/87, heart rate of 80 with respiratory rate of 16 and pulse ox 100% on room air. CBC with white blood cell count 9.8, hemoglobin 13.8. CMP with a normal bicarb, listed anion gap of 16 with a BUN of 17 creatinine 1.02, total bili 2.25 and alk phos 189 within normal AST and ALT, mag within normal limits and TSH within normal limits. Given patient feeling unsteady and unsafe and returning to the ED twice in 2 days hospitalist contacted for admission. Patient evaluated bedside. He reports something just feels off, he continues to that he is lightheaded, denies any dizziness or dizzy feeling but cannot describe the lightheaded feeling any further, he said it is fairly constant and is not positional, no chest pain or shortness of breath, denied any neuro signs, symptoms, complaints to me, denied any changes in bowel or bladder, felt a little bit nauseous earlier but that has not been a large complaint and was mild. Reports he also feels just generally tired and fatigued [facility] Medical History Hypokalemia Pericarditis Atrial fibrillation Essential hypertension Right inguinal hernia Right inguinal pain Home Medications ?Medication ?Instructions ?Recorded ?Last Taken ?Type apixaban 5 mg tablet 5 mg PO BID 02/19/22 07/03/25 History cyanocobalamin (vitamin B-12) 3,000 mcg PO DAILY 02/19/22 07/03/25 History 1,000 mcg tablet magnesium oxide 400 mg PO DAILY 02/19/22 07/03/25 History metoprolol succinate 100 mg 100 mg PO DAILY 05/04/22 07/02/25 History tablet,extended release 24 hr eplerenone 25 mg tablet 25 mg PO DAILY started by PCP 10/26/22 07/03/25 History Shankar Callahan dupilumab 300 mg/2 mL subcutaneous 300 mg subcut Q2W 07/25/24 06/25/25 History pen injector (Dupixent) losartan 25 mg tablet 25 mg PO DAILY #90 TABLETS 10/19/24 07/02/25 Rx amlodipine 5 mg tablet 5 mg PO BID #180 tabs 04/29/25 07/03/25 Rx Allergy/AdvReac Type Severity Reaction Status Date / Time No Known Allergies Allergy Verified 07/04/25 11:05 Family History Mother Breast cancer Cancer Lung Cancer Father Heart disease Surgical History Hx of right inguinal hernia repair History of appendectomy History of tonsillectomy Social History Smoking Status: Never smoker alcohol intake: current alcohol intake frequency: a few times a week Alcohol type: beer and wine substance use type: does not use caffeine: Yes Type: tea Number of servings: 1 ROS ROS Narrative General: Denies fever/chills HENT: Denies headache, denies stuffy nose, denies sore throat EYES: Denies changes in vision Resp: Denies cough, denies shortness of breath Cardiac: Denies chest pain GI: Denies abdominal pain, denies changes in bowel, had mild nauseous feeling earlier : Denies changes in urination Extremity: Denies swelling MSK: Denies weakness, feels generally tired and fatigued Neuro: Denies any numbness/tingling Heme: Denies any bleeding or bruising Skin: Denies rashes Psychiatric: No complaints voiced Vital Signs Vital Signs Vital Signs: 07/04/25 11:02 07/04/25 11:02 07/04/25 12:02 Temperature 97.9 F Temperature Source Temporal Pulse Rate 116 H 83 Respiratory Rate 18 16 Respiratory Effort Normal Non-Labored Respiratory Pattern Normal Blood Pressure 168/94 H 160/96 H Blood Pressure Mean 118 117 Pulse Ox 98 100 Oxygen Delivery Method Room Air 07/04/25 13:00 07/04/25 14:00 07/04/25 15:00 Temperature Temperature Source Pulse Rate 80 81 73 Respiratory Rate 16 12 12 Respiratory Effort Respiratory Pattern Blood Pressure 146/87 H 159/96 H 153/101 H Blood Pressure Mean 106 117 118 Pulse Ox 100 100 100 Oxygen Delivery Method Room Air 07/04/25 15:32 Temperature 98.2 F Temperature Source Pulse Rate 70 Respiratory Rate 16 Respiratory Effort Respiratory Pattern Blood Pressure 169/105 H Blood Pressure Mean 126 Pulse Ox 100 Oxygen Delivery Method Weight Weight: 82.6 kg Body Mass Index (BMI) 26.1 Physical Exam Narrative General: Alert, oriented, no apparent distress HEENT: Atraumatic, normocephalic Eyes: Anicteric, normal conjunctiva, extraocular movements grossly intact Neck: Supple Respiratory: Clear to auscultation bilaterally, normal respiratory effort Cardiovascular: Regular rate and rhythm GI: Soft, nontender, nondistended Extremities: No edema Musculoskeletal: Moving all extremities Neuro: No overt focal neurological deficits Skin: No rashes appreciated Psych: Cooperative Results Lab / Micro Data 07/04/25 11:15 07/04/25 11:15 Labs: Laboratory Results - last 24 hr 07/04/25 11:15: WBC 9.8, RBC 4.32 L, Hgb 13.8, Hct 38.7 L, MCV 89.6, MCH 31.9, MCHC 35.7, RDW Std Deviation 51.8 H, RDW Coeff of Roberto 15.8 H, Plt Count 157, MPV 8.3, Immature Gran % (Auto) 0.900, Neut % (Auto) 85.4 H, Lymph % (Auto) 6.6 L, [place] % (Auto) 6.0, Eos % (Auto) 0.5, Baso % (Auto) 0.6, Absolute Neuts (auto) 8.4 H, Absolute Lymphs (auto) 0.65 L, Nucleated RBC % 0, Sodium 135, Potassium 3.3, Chloride 96 L, Carbon Dioxide 23.2, Anion Gap 16 H, BUN 17, Creatinine 1.02, Estim Creat Clear Calc 61.63, Est GFR (MDRD) Non-Af 75, BUN/Creatinine Ratio 16.5, Glucose 143 H, Calcium 9.8, Magnesium 2.0, Total Bilirubin 2.25 H, AST 31, ALT 18, Alkaline Phosphatase 189 H, Total Protein 8.0, Albumin 4.7, Globulin 3.3, Albumin/Globulin Ratio 1.4, TSH 1.320 Rhythm Strip Rhythm Strip: A-fib Rate: 81 Ectopy: None Imaging Radiology Impression Brain CT 07/04/25 12:10 IMPRESSION: There is low-density in the deep white matter on the right and left and in the left occipital lobe, likely chronic ischemic changes. [facility] Assessment & Plan Assessment/Plan (1) Lightheadedness: PLAN: Plan # Lightheadedness and fatigue - Patient seen in the ED twice in 2 days with vague feelings of weakness and lightheadedness - Yesterday had negative orthostats - Has had negative brain CT - Neuroexam normal in the ED -UA not suggestive of infection yesterday - Will monitor on telemetry - Will obtain echocardiogram -Will check carotid duplex - Will check viral panels -Will check B12 and vitamin D - Will consult PT/OT - If workup remains negative patient can likely DC home and follow-up with his outpatient physician #Paroxysmal Atrial Fibrillation -Rate control: Will continue metoprolol -Anticoagulation: Continue Eliquis #Hypertension - Patient had negative orthostats and is not hypotensive so we will continue his home antihypertensives # Elevated bilirubin -Looks like this is actually been chronically elevated, unclear significance -Alk phos slightly elevated 189, no abdominal pain -Liver function tests otherwise within normal limits -Repeat CMP in a.m. #Elevated glucose - Glucose of 143 with no known history of diabetes - Glucose checks, sliding scale insulin - Check A1c #DVT ppx: Not indicated, already on Eliquis Syeda Rooney MD Charges/Coding Visit Charges Inpatient E&M: 83330 Init Hosp L2
--- OUTSIDE RECORDS SUMMARY | 2025-07-04 17:43 | XMS RPT_ITS | CCD ---
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 Shankar Callahan Primary Care Provider [phone] Shankar Callahan Referring Provider [phone] Dr. Al Figueroa Attending Provider Dr. Al Figueroa Referring Provider Dr. Al Figueroa Other Provider Lora BRIM EDGE TRIMMER, BRIM EDGE TRIMMER-C Angely Mauricio Attending Provider Dr. Shankar Callahan Primary Care Provider [phone] Al Figueroa Attending Provider Dr. Shankar Callahan Referring Provider Dr. Shankar Callahan Primary Care Provider [phone] Shankar Callahan Referring Provider [phone] Lora BRIM EDGE TRIMMER, BRIM EDGE TRIMMER-C Angely Mauricio Attending Provider Dr. Shankar Callahan MD [facility] BRIM EDGE TRIMMERFreddie Kinney Attending Provider George Riley MD Emergency Provider Shankar Callahan Primary Care Unavailable Shankar Callahan Attending Unavailable Shankar Callahan Primary Care Unavailable George Riley Attending Unavailable Shankar Callahan Primary Care Unavailable [place]orrow Freddie BEE Attending Unavailable Angely Paulino NP Attending Unavailable Shankar Callahan Primary Care Unavailable Shankar Callahan Referring Unavailable Medications Current Medications Medication Drug Class(es) Dates Sig (Normalized) Sig (Original) amLODIPine 5 mg oral tablet (20 sources) Dihydropyridine Calcium Channel Jadiel Start: 05-27-2022 End: 04-29-2025 take 1 tablet by mouth twice daily Amlodipine 5 mg tablet Active 5 mg PO TWICE A DAY 180 3 April 29, 2025 2:09pm Start: 05-24-2022 End: 05-27-2022 take 1 tablet by mouth once daily Amlodipine 5 mg tablet Discontinued 5 mg PO DAILY 30 May 24, 2022 2:24pm May 27, 2022 4:37pm Start: 02-19-2022 End: 05-04-2022 take 1 tablet by mouth once daily Amlodipine 5 mg tablet Discontinued 5 mg PO DAILY February 19, 2022 12:00am May 04, 2022 9:34am Start: 03-28-2020 End: 02-19-2022 take 1 tablet by mouth once daily Amlodipine 10 mg tablet Discontinued 10 mg PO DAILY March 28, 2020 12:00am February 19, 2022 11:16am apixaban 5 mg oral tablet (9 sources) Factor Xa Inhibitor Start: 02-19-2022 take 1 tablet by mouth twice daily Apixaban 5 mg tablet Active 5 mg PO TWICE A DAY February 19, 2022 12:00am 2 ml dupilumab 150 mg/ml auto-injector (6 sources) Interleukin-4 Receptor alpha Antagonist Start: 07-25-2024 Dupilumab (Dupixent Pen) 300 mg/2 mL pen injector Active 300 mg SC every 2 weeks July 25, 2024 12:00am Start: 06-07-2022 End: 12-30-2022 Dupilumab (Dupixent Pen) 300 mg/2 mL pen injector Discontinued 300 mg SC every 2 weeks June 07, 2022 12:00am December 30, 2022 3:55pm eplerenone 25 mg oral tablet (2 sources) Aldosterone Antagonist Start: 10-26-2022 take 1 tablet by mouth once daily Eplerenone 25 mg tablet Active 25 mg PO DAILY October 26, 2022 1:00am started by PCP Dr. Shankar Callahan losartan potassium 25 mg oral tablet (8 sources) Angiotensin 2 Receptor Jadiel Start: 10-22-2022 End: 10-19-2024 take 1 tablet by mouth once daily Losartan 25 mg tablet Active 25 mg PO DAILY 90 3 October 19, 2024 11:10am magnesium oxide 400 mg oral tablet (9 sources) Start: 02-19-2022 take 1 tablet by mouth once daily Magnesium Oxide 400 mg magnesium tablet Active 400 mg PO DAILY February 19, 2022 12:00am 24 hr metoprolol succinate 100 mg extended release oral tablet (17 sources) beta-Adrenergic Jadiel Start: 05-04-2022 take 100 mg by mouth twice daily Metoprolol Succinate Active 100 MG PO TWICE A DAY May 04, 2022 8:37am Start: 02-19-2022 End: 05-04-2022 take 1 tablet by mouth once daily Metoprolol Succinate 100 mg tablet extended release 24 hr Active 100 mg PO DAILY May 04, 2022 9:37am vitamin b12 1 mg oral tablet (9 sources) Vitamin B12 Start: 02-19-2022 take 3 tablets by mouth once daily Cyanocobalamin (Vitamin B-12) 1,000 mcg tablet Active 3000 ug PO DAILY February 19, 2022 12:00am Start: 02-19-2022 take 3000 ug by mout h once daily Cyanocobalamin (Vitamin B-12) Active 3000 MCG PO DAILY February 18, 2022 11:00pm Completed/Discontinued Medications Medication Drug Class(es) Dates Sig (Normalized) Sig (Original) acetaminophen 325 mg / oxyCODONE hydrochloride 5 mg oral tablet (10 sources) Opioid Agonist Start: 04-03-2020 End: 04-09-2020 Oxycodone-Acetamino phen 1 TABLET tablet Discontinued 1 - 2 {tbl} PO EVERY 4 HOURS NEEDED as needed for Pain 06 05April 03, 2020 April 08, 2020 12:00am April 09, 2020 12:02am Right inguinal pain Right lower quadrant pain Start: 04-03-2020 End: 04-09-2020 take 1 tablet by mouth every four hours as needed Oxycodone-Acetaminophen Discontinued 1 - 2 TABLET PO EVERY 4 HOURS NEEDED 06 05April 03, 2020 April 08, 2020 11:02pm labetalol hydrochloride 300 mg oral tablet (10 sources) beta-Adrenergic Jadiel Start: 03-28-2020 End: 02-19-2022 take 1 tablet by mouth twice daily Labetalol 300 mg tablet Discontinued 300 mg PO TWICE A DAY March 28, 2020 12:00am February 19, 2022 11:16am potassium chloride 20 meq extended release oral tablet (20 sources) Start: 06-25-2022 End: 10-26-2022 take 1 tablet by mouth twice daily Potassium Chloride 20 mEq tablet extended release Discontinued 20 meq PO TWICE A DAY June 25, 2022 3:18pm October 26, 2022 11:14am Start: 06-25-2022 End: 06-25-2022 take 1 tablet by mouth once daily Potassium Chloride 20 mEq tablet extended release Discontinued 20 meq PO DAILY June 25, 2022 2:54pm June 25, 2022 3:18pm Start: 05-21-2022 End: 06-25-2022 take 2 tablets by mouth once daily Potassium Chloride 20 mEq tablet extended release Discontinued 40 meq PO DAILY 180 3 June 07, 2022 3:30pm June 25, 2022 2:54pm Start: 05-21-2022 End: 06-25-2022 take 40 mEq by mouth once daily Potassium Chloride Dis continued 40 MEQ PO DAILY 180 June 07, 2022 2:30pm June 25, 2022 1:54pm Start: 02-19-2022 End: 05-21-2022 take 2 tablets by mouth twice daily Potassium Chloride 20 mEq tablet extended release Discontinued 40 meq PO TWICE A DAY February 19, 2022 12:00am May 21, 2022 1:38pm Start: 02-19-2022 End: 05-21-2022 take 40 mEq by mouth twice daily Potassium Chloride Discontinued 40 MEQ PO TWICE A DAY February 18, 2022 11:00pm May 21, 2022 12:38pm quinapril 10 mg oral tablet (20 sources) Angiotensin Converting Enzyme Inhibitor Start: 05-21-2022 End: 10-22-2022 take 1 tablet by mouth twice daily Quinapril 10 mg tablet Discontinued 10 mg PO TWICE A DAY 180 3 October 14, 2022 9:35am October 22, 2022 6:49pm Start: 05-04-2022 End: 05-21-2022 take 1 tablet by mouth once daily Quinapril 10 mg tablet Discontinued 10 mg PO DAILY May 04, 2022 12:00am May 21, 2022 2:42pm Problems Active Problems Problem Classification Problem Date Documented Da te Episodic/Chronic Abdominal hernia (10 sources) Right inguinal hernia ; Translations: [Unilateral inguinal hernia, without obstruction or gangrene, not specified as recurrent] 02-16-2022 Episodic Abdominal pain (10 sources) Right inguinal pain; Translations: [Right lower quadrant pain] 02-16-2022 Episodic Cardiac dysrhythmias (20 sources) Atrial fibrillation; Translations: [Unspecified atrial fibrillation] Onset: 12-18-2024 Chronic Conditions associated with dizziness or vertigo (1 source) Lightheadedness; Translations: [Dizziness and giddiness] 07-03-2025 Episodic Essential hypertension (20 sources) Hypertensive disorder; Translations: [Essential (primary) hypertension] Onset: 12-18-2024 Chronic Other screening for suspected conditions (not mental disorders or infectious disease) (1 source) Encounter for screening for malignant neoplasm of prostate; Translations: [Encounter for screening for malignant neoplasm of prostate] Onset: 07-03-2025 Episodic Past or Other Problems Problem Classification Problem Date Documented Da te Episodic/Chronic Deficiency and other anemia (1 source) Anemia, unspecified; Translations: [Anemia, unspecified] Onset: 08-13-2024 Episodic Fluid and electrolyte disorders (20 sources) Hypokalemia; Translations: [Hypokalemia] Onset: 12-18-2024 Episodic Results Test Name Value Interpretation Reference Range Facility Absolute lymphocyte countOrd ered By: George Riley on 07-03-2025 Lymphocytes Auto (Unsp spec) [#/Vol] 0.79 10*3/uL Low 0.83-4.51 [facility] Absolute neutrophil countOrd ered By: George Riley on 07-03-2025 Neutrophils (Bld) [#/Vol] 9.9 10*3/uL High 2.0-7.7 [facility] Anion gap in Serum or Plasma Ordered By: George Riley on 07-03-2025 Anion gap [Moles/Vol] 14 mmol/L 5-15 [facility] Automated lymphocyte count a s percentage of total leukocytesOrdered By: George Riley on 07-03-2025 Lymphocytes/100 WBC Auto (Unsp spec) 6.7 % Low 19-41 [facility] BUN/creatinine ratioOrdered By: George Riley on 07-03-2025 Urea nitrogen/Creatinine [Mass ratio] 18.8 mg/mg 08-26 [facility] Basic Metabolic Profile (BMP )on 07-03-2025 BUN/CRE 18.8 RATIO Normal 08-26 [facility] Comment on above: Performed By: #### L 100.0100, L500.2500 #### [facility] [address] [place], [address] Calcium [Mass/Vol] 9.3 mg/dL Normal 7.6-11.0 [facility] Comment on above: Performed By: #### L 100.0100, L500.2500 #### [facility] [address] [place], [address] Chloride [Moles/Vol] 96 mmol/L Low 98-108 [facility] Comment on above: Performed By: #### L 100.0100, L500.2500 #### [facility] [address] [place], [address] CO2 [Moles/Vol] 22.7 mmol/L Normal 21.0-32.0 [facility] Comment on above: Performed By: #### L 100.0100, L500.2500 #### [facility] [address] [place], [address] Creatinine [Mass/Vol] 0.99 mg/dL Normal 0.70-1.20 [facility] Comment on above: Performed By: #### L 100.0100, L500.2500 #### [facility] [address] [place] [place], [address] ECRCL 63.50 ml/min Normal 50-250 [facility] Comment on above: Performed By: #### L 100.0100, L500.2500 #### [facility] [address] [place], [address] GAP 14 Normal 5-15 [facility] Comment on above: Performed By: #### L 100.0100, L500.2500 #### [facility] [address] [place], [address] GFR/1.73 sq M.predicted among non-blacks MDRD (S/P/Bld) [Vol rate/Area] 78 mL/min/{1.73_m2} Normal >60 [facility] Comment on above: Result Comment: mL/m in/1.73m2 CKD-EPI Creatinine Equation (2020) Performed By: #### L 100.0100, L500.2500 #### [facility] [address] [place] [place], [address] Glucose [Mass/Vol] 122 mg/dL High 70-99 [facility] Comment on above: Performed By: #### L 100.0100, L500.2500 #### [facility] [address] [place], [address] Potassium [Moles/Vol] 3.6 mmol/L Normal 3.3-5.1 [facility] Comment on above: Performed By: #### L 100.0100, L500.2500 #### [facility] [address] [place], [address] Sodium [Moles/Vol] 132 mmol/L Low 133-145 [facility] Comment on above: Performed By: #### L 100.0100, L500.2500 #### [facility] [address] [place], [address] Urea nitrogen [Mass/Vol] 19 mg/dL Normal 4-19 [facility] Comment on above: Performed By: #### L 100.0100, L500.2500 #### [facility] [address] [place], [address] Basophil percentageOrdered B y: George Riley on 07-03-2025 Basophils/100 WBC (Bld) 0.5 % 0-1 [facility] Bilirubin Test strip Ql (U)O rdered By: George Riley on 07-03-2025 Bilirubin Ql (U) Negative Negative [facility] CBC W/Diff, Automatedon 06-08 Absolute Lymph 0.79 X10 3/uL Low 0.83-4.51 [facility] Comment on above: Performed By: #### L 100.0100, L500.2500 #### [facility] [address] [place], [address] Absolute Neut 9.9 X10 3/uL High 2.0-7.7 [facility] Comment on above: Performed By: #### L 100.0100, L500.2500 #### [facility] [address] [place], [address] Basophils/100 WBC (Bld) 0.5 % Normal 0-1 [facility] Comment on above: Performed By: #### L 100.0100, L500.2500 #### [facility] [address] [place], [address] Eosinophils/100 WBC (Bld) 0.6 % Normal 0-5 [facility] Comment on above: Performed By: #### L 100.0100, L500.2500 #### [facility] [address] [place], [address] Erythrocyte distribution width (RBC) [Ratio] 15.8 % High 11.6-14.6 [facility] Comment on above: Performed By: #### L 100.0100, L500.2500 #### [facility] [address] [place], [address] Hematocrit (Bld) [Volume fraction] 37.4 % Low 40-54 [facility] Comment on above: Performed By: #### L 100.0100, L500.2500 #### [facility] [address] [place], [address] Hemoglobin (Bld) [Mass/Vol] 13.5 g/dL Normal 13.0-16.5 [facility] Comment on above: Performed By: #### L 100.0100, L500.2500 #### [facility] [address] [place], [address] IG% 0.900 Normal 0.0-0.9 [facility] Comment on above: Result Comment: IG% - Immature Granulocytes (promyelocytes, myelocytes and metamyelocytes) > 1% indicates that a LEFT SHIFT is Present. Performed By: #### L 100.0100, L500.2500 #### [facility] [address], [address] Lymphocytes/100 WBC (Bld) 6.7 % Low 19-41 [facility] Comment on above: Performed By: #### L 100.0100, L500.2500 #### [facility] [address] [place], [address] MCH (RBC) [Entitic mass] 31.9 pg Normal 27.0-32.0 [facility] Comment on above: Performed By: #### L 100.0100, L500.2500 #### [facility] [address] [place], [address] MCHC (RBC) [Mass/Vol] 36.1 g/dL High 32-36 [facility] Comment on above: Performed By: #### L 100.0100, L500.2500 #### [facility] [address], [address] MCV (RBC) [Entitic vol] 88.4 fL Normal 80-94 [facility] Comment on above: Performed By: #### L 100.0100, L500.2500 #### [facility] [address] [place], [address] Monocytes/100 WBC (Bld) 7.4 % Normal 0-10 [facility] Comment on above: Performed By: #### L 100.0100, L500.2500 #### [facility] [address] [place], [address] Neutrophils/100 WBC (Bld) 83.9 % High 47-70 [facility] Comment on above: Performed By: #### L 100.0100, L500.2500 #### [facility] [address] [place], [address] Nucleated RBC (Bld) [#/Vol] 0 10*3/uL Normal 0-5 [facility] Comment on above: Performed By: #### L 100.0100, L500.2500 #### [facility] [address] [place], [address] Platelet mean volume (Bld) [Entitic vol] 8.2 fL Normal 6.2-12.0 [facility] Comment on above: Performed By: #### L 100.0100, L500.2500 #### [facility] [address] [place], [address] Platelets (Bld) [#/Vol] 154 10*3/uL Normal 150-450 [facility] Comment on above: Performed By: #### L 100.0100, L500.2500 #### [facility] [address] [place], [address] RBC (Bld) [#/Vol] 4.23 10*6/uL Low 4.6-6.2 [facility] Comment on above: Performed By: #### L 100.0100, L500.2500 #### [facility] [address] [place], [address] RDW SD 51.0 fl High 35.1-43.9 [facility] Comment on above: Performed By: #### L 100.0100, L500.2500 #### [facility] [address] [place], [address] WBC (Bld) [#/Vol] 11.8 10*3/uL High 4.4-11.0 [facility] Comment on above: Performed By: #### L 100.0100, L500.2500 #### [facility] [address] [place], [address] Carbon dioxide, total [Moles /volume] in Central venous bloodOrdered By: George Riley on 07-03-2025 CO2 [Moles/Vol] 22.7 mmol/L 21.0-32.0 [facility] Chest 1 View (Portable)on Chest 1 View (Portable) [facility] Imaging Services [address] [place] [address] Chest 1 View (Portable) MR#: [id number] Acct: [id number] Name: ANGELY STEINER Rep #: [id number] : 1945 M 80 From: Akshat Curran MD PCP: Dr. Shankar Callahan MD Status: REG ER Study: Chest 1 View (Portable) Date of Exam: 07/03/25 Exam# [id number] Ordering Dr: George Riley MD PROCEDURE: CHEST 1 VIEW (PORTABLE) 07/03/2025 REASON FOR EXAM: CORONARY ARTERY DISEASE TECHNIQUE: Frontal view of the chest. COMPARISON: 02/19/2022 FINDINGS: Hardware: EKG leads overlie the chest Heart: The heart size is normal. Lungs: The lungs are clear. Bones: Degenerative changes are identified within the thoracic spine. Other: RAD/Chest 1 View (Portable) IMPRESSION: No acute pulmonary process Reading Location: [facility] CC: Dr. Georeg Riley MD; Dr. Shankar Callahan MD Supervisor Cloth Winding: Signed Normal [facility] Chloride assayOrdered By: Heladio Riley on 07-03-2025 Chloride [Moles/Vol] 96 mmol/L Low 98-108 [facility] Emergency Department Summary on 07-03-2025 Emergency Department Summary [facility] Medical Records Department [address] [place] [address] Emergency Department Summary 07/03/25 MR#: [id number] Acct: [id number] Name: ANGELY STEINER Rep #: [id number] : 1945 80 From: George Riley MD PCP: Dr. Shankar Callahan MD Status:REG ER Location: ED HPI History of Present Illness Chief Complaint: Weakness Narrative Narrative: 80-year-old male past medical history of atrial fibrillation on Eliquis presents with about a weeks worth of lightheadedness and near syncope. He denies any chest pain or shortness of breath, but states he feels off. He states he cannot tell whether he is in atrial fibrillation or not. He denies any exacerbating or alleviating factors to his lightheadedness. There were times when he felt off balance from right leg sciatica and had to hold onto something. Once again he denies any chest pain or shortness of breath, no nausea or vomiting, no diaphoresis, no diarrhea, no dysuria or hematuria. Some necessarily worse with standing. He had his friend bring him to the emergency department because he was afraid to drive. No headaches. No vertigo. [facility] Medical History Hypokalemia Pericarditis Atrial fibrillation Essential hypertension Right inguinal hernia Right inguinal pain Home Medications ???Medication ???Instructions ???Recorded ???Last Taken ???Type apixaban 5 mg tablet 5 mg PO BID 02/19/22 07/03/25 Hist ory cyanocobalamin (vitamin B-12) 3,000 mcg PO DAILY 02/19/22 History 1,000 mcg tablet magnesium oxide 400 mg PO DAILY 02/19/22 07/03/25 History metoprolol succinate 100 mg 100 mg PO DAILY 05/04/22 07/02/25 History tablet,extended release 24 hr eplerenone 25 mg tablet 25 mg PO DAILY started by PCP 10/26/22 07/03/25 History Shankar Callahan dupilumab 300 mg/2 mL subcutaneous 300 mg subcut Q2W 07/25/2406/25 History pen injector (Dupixent) losartan 25 mg tablet 25 mg PO DAILY #90 TABLETS 4 07/02/25 Rx amlodipine 5 mg tablet 5 mg PO BID #180 tabs 04/29/25 Rx Allergy/AdvReac Type Severity Reaction Status Date / Time No Known Allergies Allergy Verified 07/03/25 12:16 Family History Mother Breast cancer Cancer Lung Cancer Father Heart disease Surgical History Hx of right inguinal hernia repair History of appendectomy History of tonsillectomy Social History Smoking Status: Never smoker alcohol intake: current alcohol intake frequency: a few times a week Alcohol type: beer and wine substance use type: does not use caffeine: Yes Type: tea Number of servings: 1 ROS ROS ED ROS Narrative Review of systems positive for lightheadedness intermittently over the last week. No chest pain, no shortness of breath, no fevers or chills, no cough, no nausea, no vomiting, no vertiginous type symptoms. Not necessarily worse with standing. Positive low back and sciatica pain. EXAM Physical Exam Narrative Exam Narrative: Afebrile. Vital signs noted. Nontoxic-appearing. Cardiovascular examination reveals an irregularly irregular rhythm that is rate controlled. Lungs are clear to auscultation bilaterally. Abdomen is soft and nontender without guarding or rebound. Positive bowel sounds. Neurological examination is nonfocal, nonlateralizing. Awake, alert, oriented x 3. No appreciable pedal edema bilaterally. Moves all extremities. Const Vital Signs: 07/03/25 12:13 07/03/25 13:35 07/03/25 13:41 Temperature 97.9 F Temperature Source Oral Pulse Rate 94 Pulse Rate [Lying] 88 Pulse Rate [Sitting (for 1 minute prior to obtaining)] 76 Pulse Rate [Standing (for 1 minute prior to obtaining)] 83 Respiratory Rate 17 Respiratory Effort Normal Respiratory Pattern Normal Blood Pressure 153/94 H Blood Pressure [Lying] 167/88 H Blood Pressure [Sitting (for 1 minute prior to obtaining)] 159/94 H Blood Pressure [Standing (for 1 minute prior to obtaining)] 160/96 H Blood Pressure Mean 113 Blood Pressure Mean [Lying] 114 Blood Pressure Mean [Sitting (for 1 minute prior to obtaining)] 115 Blood Pressure Mean [Standing (for 1 minute prior to obtaining)] 117 Pulse Ox 100 Oxygen Delivery Method Room Air 07/03/25 14:13 Temperature Temperature Source Pulse Rate 75 Pulse Rate [Lying] Pulse Rate [Sitting (for 1 minute prior to obtaining)] Pulse Rate [Standing (for 1 minute prior to obtaining)] Respiratory Rate Respiratory Effort Respiratory Pattern Blood Pressure Blood Pressure [Lying] Blood Pressure [Sitting (for 1 minute prior to obtaining)] Blood Pre (more content not included)... Normal [facility] Eosinophil percentageOrdered By: George Riley on 07-03-2025 Eosinophils/100 WBC (Bld) 0.6 % 0-5 [facility] Erythrocyte distribution wid th ratioOrdered By: George Riley on 07-03-2025 Erythrocyte distribution width (RBC) [Ratio] 15.8 % High 11.6-14.6 [facility] Erythrocyte distribution wid th standard deviationOrdered By: George Riley on 07-03-2025 Erythrocyte distribution width (RBC) [Ratio] 51.0 fl High 35.1-43.9 [facility] Glomerular filtration rate ( GFR) estimation/1.73 sq m using serum, plasma, or whole bOrdered By: George Riley on 07-03-2025 GFR/1.73 sq M.predicted among non-blacks MDRD (S/P/Bld) [Vol rate/Area] 78 mL/min/{1.73_m2} >60 [facility] Comment on above: mL/min/1.73m2 CKD-EP I Creatinine Equation (2020) Hematocrit Auto (Bld) [Volum e fraction]Ordered By: George Riley on 07-03-2025 Hematocrit (Bld) [Volume fraction] 37.4 % Low 40-54 [facility] Hemoglobin measurementOrdere d By: George Riley on 07-03-2025 Hemoglobin (Bld) [Mass/Vol] 13.5 g/dL 13.0-16.5 [facility] Immature granulocytes/100 WB C Auto (Bld)Ordered By: George Riley on 07-03-2025 Immature granulocytes/100 WBC (Bld) 0.900 % 0.0-0.9 [facility] Comment on above: IG% - Immature Granu locytes (promyelocytes, myelocytes and metamyelocytes) > 1% indicates that a LEFT SHIFT is Present. Ketones Test strip Ql (U)Ord ered By: George Riley on 07-03-2025 Ketones Ql (U) Negative Negative [facility] MCV (mean corpuscular volume ) determinationOrdered By: George Riley on 07-03-2025 MCV (RBC) [Entitic vol] 88.4 fL 80-94 [facility] Mean corpuscular hemoglobin (MCH) determinationOrdered By: George Riley on 07-03-2025 MCH (RBC) [Entitic mass] 31.9 pg 27.0-32.0 [facility] Mean corpuscular hemoglobin concentration (MCHC) determinationOrdered By: George Riley on 07-03-2025 MCHC (RBC) [Mass/Vol] 36.1 g/dL High 32-36 [facility] Mean platelet volume determi nationOrdered By: George Riley on 07-03-2025 Platelet mean volume (Bld) [Entitic vol] 8.2 fL 6.2-12.0 [facility] Microscopic analysis of urin e for red blood cells (RBC)Ordered By: George Riley on 07-03-2025 Microscopic analysis of urine for red blood cells (RBC) 0 SEEN /hpf 0-5 [facility] Monocyte percentageOrdered B y: George Riley on 07-03-2025 Monocytes/100 WBC (Bld) 7.4 % 0-10 [facility] Mucus LM Ql (Urine sed)Order ed By: George Riley on 07-03-2025 Mucus Ql (Urine sed) 0 SEEN /hpf [facility] Neutrophil percentageOrdered By: George Riley on 07-03-2025 Neutrophils/100 WBC (Bld) 83.9 % High 47-70 [facility] Nitrite Test strip Ql (U)Ord ered By: George Riley on 07-03-2025 Nitrite Ql (U) Negative Negative [facility] Nucleated red blood cell per centageOrdered By: George Riley on 07-03-2025 Nucleated RBC/100 WBC (Bld) [Ratio] 0 % 0-5 [facility] Platelet countOrdered By: Hleadio Riley on 07-03-2025 Platelets (Bld) [#/Vol] 154 10*3/uL 150-450 [facility] Potassium measurement (mass/ volume)Ordered By: George Riley on 07-03-2025 Potassium (Unsp spec) [Mass/Vol] 3.6 mmol/L 3.3-5.1 [facility] Protein Test strip Ql (U)Ord ered By: George Riley on 07-03-2025 Protein Ql (U) 100 mg/dl High Negative [facility] RBC Auto (Bld) [#/Vol]Ordere d By: George Riley on 07-03-2025 RBC (Bld) [#/Vol] 4.23 10*6/uL Low 4.6-6.2 [facility] Serum creatinine measurement (mass/volume)Ordered By: George Riley on 07-03-2025 Creatinine [Mass/Vol] 0.99 mg/dL 0.70-1.20 [facility] Serum glucose measurement (m ass/volume)Ordered By: George Riley on 07-03-2025 Glucose [Mass/Vol] 122 mg/dL High 70-99 [facility] Serum or plasma calcium sheree urement (mass/volume)Ordered By: George Riley on 07-03-2025 Calcium [Mass/Vol] 9.3 mg/dL 7.6-11.0 [facility] Serum or plasma urea nitroge n measurement (mass/volume)Ordered By: George Riley on 07-03-2025 Urea nitrogen [Mass/Vol] 19 mg/dL 4-19 [facility] Sodium levelOrdered By: George Riley on 07-03-2025 Sodium [Moles/Vol] 132 mmol/L Low 133-145 [facility] Squamous epithelial cells de tection in urine sediment by light microscopyOrdered By: George Riley on 07-03-2025 Epithelial cells.squamous LM Ql (Urine sed) 0 SEEN /hpf 0-5 [facility] Urinalysis, Completeon 07-03 BACTERIA 0 SEEN Normal None Seen [facility] Comment on above: Order Comment: Order Date: 07/18/24 Order Info: [id number] - VITD25 Performed By: #### L 500.4050, L001.0705, L509.1000, L506.1000 #### [facility] [address] [place], [address] EPI,SQUAMOUS 0 SEEN Normal 0-5 [facility] Comment on above: Order Comment: Order Date: 07/18/24 Order Info: [id number] - VITD25 Performed By: #### L 500.4050, L001.0705, L509.1000, L506.1000 #### [facility] [address] [place], [address] Mucus Ql (Urine sed) 0 SEEN Normal [facility] Comment on above: Order Comment: Order Date: 07/18/24 Order Info: [id number] - VITD25 Performed By: #### L 500.4050, L001.0705, L509.1000, L506.1000 #### [facility] [address] [place], [address] RBC 0 SEEN Normal 0-5 [facility] Comment on above: Order Comment: Order Date: 07/18/24 Order Info: [id number] - VITD25 Performed By: #### L 500.4050, L001.0705, L509.1000, L506.1000 #### [facility] [address] [place], [address] WBC 0 SEEN Normal 0-5 [facility] Comment on above: Order Comment: Order Date: 07/18/24 Order Info: [id number] - VITD25 Performed By: #### L 500.4050, L001.0705, L509.1000, L506.1000 #### [facility] [address] [place], [address] Urine clarityOrdered By: Ramya Riley on 07-03-2025 Clarity (U) Clear Clear [facility] Urine color determinationOrd ered By: George Riley on 07-03-2025 Color (U) Yellow Yellow [facility] Urine glucose detectionOrder ed By: George Riley on 07-03-2025 Glucose Ql (U) Normal mg/dl Normal [facility] Urine leukocyte esterase det ection by dipstickOrdered By: George Riley on 07-03-2025 Leukocyte esterase Test strip Ql (U) Negative Negative [facility] Urine pHOrdered By: George carlos on 07-03-2025 pH (U) 6.5 [pH] 5.0 - 8.0 [facility] Urine sediment bacteria coun t by microscopy (number/high power field)Ordered By: George Riley on 07-03-2025 Bacteria LM.HPF (Urine sed) [#/Area] 0 /[HPF] None Seen [facility] Urine specific gravity measu rementOrdered By: George Riley on 07-03-2025 Specific gravity (U) [Rel density] 1.010 1.002-1.030 [facility] Urine urobilinogen measureme ntOrdered By: George Riley on 07-03-2025 Urobilinogen Ql (U) Normal mg/dl Normal [facility] White blood cell (WBC) count Ordered By: George Riley on 07-03-2025 WBC (Bld) [#/Vol] 11.8 10*3/uL High 4.4-11.0 [facility] White blood cell countOrdere d By: George Riley on 07-03-2025 White blood cell count 0 SEEN /hpf 0-5 [facility] PSA,Total - Annual Screenon 07-02-2025 PSA,TOT SCREEN 6.21 ng/mL High 0.02-4.00 [facility] Comment on above: Result Comment: This test was performed using the [employer] tPSA method. Measured values of a patient??sample can vary depending on the testing procedure used. PSA values determined on patient samples by different testing procedures cannot be used interchangeably. If there is a change in PSA assays while monitoring therapy, sequential testing should be performed to confirm baseline values. Performed By: #### L 501.9910 #### [facility] [address] [place], [place], [id number] Cardiology Visit Reporton Cardiology Visit Report [facility] [address] [place] [address] OFFICE VISIT Date of Service: 07/25/24 MR#: [id number] Acct: [id number] Name: ANGELY STEINER Renee Rep #: [id number] : 1945 Provider: KATYA diana Age/Sex: 79/M Location: [facility] [place] Status: Signed [facility] History of Present Illness Details: This is a 79-year-old white male who presents today for outpatient cardiovascular follow-up based upon concerns of atrial fibrillation superimposed upon a history of hypertension and hypokalemia with a remote history, approximately 20 years ago, of an episode of pericarditis.He established care with Dr. Shankar Callahan. During the evaluation he was noted to have an irregular heart rate. An ECG was performed that demonstrated the appearance of underlying atrial fibrillation with occasional PVCs. He was subsequently referred for further cardiovascular evaluation. His EKG during initial office visit on 02/19/2022 showed atrial fibrillation with occasional PVC. He proceeded with echocardiogram on 05/03/2022 that showed ejection fraction of 60%, severely enlarged left atrium, and moderately enlarged right atrium. He underwent stress test on 05/03/2022 that showed atrial fibrillation and was negative for ischemia. He denies chest, arm, jaw, or neck discomfort. He denies symptoms of shortness of breath with exertion, shortness of breath at rest, orthopnea, PND, sudden weight gain, or bilateral lower extremity edema. He denies chronic cough. He denies palpitations, lightheadedness, dizziness, near syncope, or syncopal episodes. He denies claudication issues. He denies fever or chills. He denies blood in urine, blood in stool, or epistaxis. He denies myalgia. He denies unexplainable fatigue. His exercise tolerance is stable with regular walks. Home blood pressures are well controlled along with heart rate. He states he has correlated his cuff. Intake Vital Signs 07/25/23 13:45 07/25/24 13:02 Height 5 ft 10 in 5 ft 10 in Weight: 185 lb 186 lb BMI 26.5 26.6 BP 166/79 H 159/87 H Blood Pressure Location Lt brachial Lt brachial Position Sitting Sitting Respiration 20 H 16 Pulse 67 66 Pulse Source Monitor NIBP Intake Visit Reasons: 1 Y FU Elevator Starter Required: No Is patient in pain?: No Allergies No Known Allergies Allergy (Unverified 07/25/24 13:07) Medications ???Medication ???Instructions ???Recorded ???Confirmed ???Type apixaban 5 mg tablet 5 mg PO BID 02/19/22 07/25/24 History cyanocobalamin (vitamin B-12) 3,000 mcg PO DAILY 02/19/22 07/25/24 History 1,000 mcg tablet magnesium oxide 400 mg PO DAILY 02/19/22 07/25/24 History metoprolol succinate 100 mg 100 mg PO BID 05/04/22 07/25/24 History tablet,extended release 24 hr eplerenone 25 mg tablet 25 mg PO DAILY started by PCP 10/26/22 07/25/24 History Shankar Callahan losartan 25 mg tablet 25 mg PO DAILY #90 tabs 11/03/23 07/25/24 Rx amlodipine 5 mg tablet 5 mg PO BID #180 tabs 05/17/24 07/25/24 Rx dupilumab 300 mg/2 mL subcutaneous 300 mg subcut Q2W 07/25/24 07/25/24 History pen injector (Dupixent) Ejection fraction %: 60 Have you fallen in the past year?: No PFSH Medical History Hypokalemia Pericarditis Atrial fibrillation Essential hypertension Right inguinal hernia Right inguinal pain Surgical History Hx of right inguinal hernia repair History of appendectomy History of tonsillectomy Family History Mother Breast cancer Cancer Lung Cancer Father Heart disease Social History Smoking Status: Never smoker alcohol intake: current alcohol intake frequency: a few times a week Alcohol type: beer and wine substance use type: does not use caffeine: Yes Type: tea Number of servings: 1 ROS Const Const: Negative for fatigue or weakness Eyes Eyes: Negative for change in vision ENT ENT: Negative for dizziness, Nosebleed/epistaxis or balance problems Cardio Chest Pain: No Palpitations: No Edema: None Muscle aches with walking: None Resp Respiratory: Negative for SOB with activity, SOB at rest, SOB orthopnea SOB lying down, Cough or paroxysmal nocturnal dyspnea GI GI: Negative nausea, heartburn or black,tarry stools : Negative for hematuria Musc Musc: Negative for muscle aches/ myalgia, muscle weakness, joint pain or balance problems Skin Skin: Negative rash Neuro Neuro: Negative for dizziness, lightheadedness, near syncope, syncope or weakness [place] Hematologic/Lymphat ic: Negative for easy bleeding or easy bruising Endo Endo: Negative for fatigue Allergy Allergy/Immunology: Negative for rash Cardiology Exam Const Jorge (more content not included)... Normal [facility] Protein Yehuda, Son 07-24 Albumin [Mass/Vol] 4.0 g/dL Normal 2.9-4.4 [facility] Comment on above: Order Comment: Order Date: 07/18/24 Order Info: [id number] - VITD25 Performed By: #### L 500.4050, L001.0705, L509.1000, L506.1000 #### [facility] [address] [place], [address] Albumin/Globulin [Mass ratio] 1.5 {ratio} Normal 0.7-1.7 [facility] Comment on above: Order Comment: Order Date: 07/18/24 Order Info: [id number] - VITD25 Performed By: #### L 500.4050, L001.0705, L509.1000, L506.1000 #### [facility] [address] [place], [address] ALPHA-1 GLOBUL 0.3 g/dL Normal 0.0-0.4 [facility] Comment on above: Order Comment: Order Date: 07/18/24 Order Info: [id number] - VITD25 Performed By: #### L 500.4050, L001.0705, L509.1000, L506.1000 #### [facility] [address] [place], [address] ALPHA-2 GLOBUL 0.5 g/dL Normal 0.4-1.0 [facility] Comment on above: Order Comment: Order Date: 07/18/24 Order Info: [id number] - VITD25 Performed By: #### L 500.4050, L001.0705, L509.1000, L506.1000 #### [facility] [address] [place], [address] BETA GLOBULIN 1.0 g/dL Normal 0.7-1.3 [facility] Comment on above: Order Comment: Order Date: 07/18/24 Order Info: [id number] - VITD25 Performed By: #### L 500.4050, L001.0705, L509.1000, L506.1000 #### [facility] [address] [place], [address] GAMMA GLOBULIN 0.9 g/dL Normal 0.4-1.8 [facility] Comment on above: Order Comment: Order Date: 07/18/24 Order Info: [id number] - VITD25 Performed By: #### L 500.4050, L001.0705, L509.1000, L506.1000 #### [facility] [address] [place], [address] Globulin (S) [Mass/Vol] 2.7 g/dL Normal 2.2-3.9 [facility] Comment on above: Order Comment: Order Date: 07/18/24 Order Info: [id number] - VITD25 Performed By: #### L 500.4050, L001.0705, L509.1000, L506.1000 #### [facility] [address] [place], [address] INTERPRETATION Comment Normal . [facility] Comment on above: Order Comment: Order Date: 07/18/24 Order Info: [id number] - VITD25 Result Comment: Prot ein electrophoresis scan will follow via computer, mail, or adhesive bandage machine operator delivery. Performed By: #### L 500.4050, L001.0705, L509.1000, L506.1000 #### [facility] [address] [place], [address] M-SPIKE Not Observed Normal Not Observed [facility] Comment on above: Order Comment: Order Date: 07/18/24 Order Info: [id number] - VITD25 Performed By: #### L 500.4050, L001.0705, L509.1000, L506.1000 #### [facility] [address] [place], [address] NOTE: Comment Normal . [facility] Comment on above: Order Comment: Order Date: 07/18/24 Order Info: [id number] - VITD25 Result Comment: The SPE pattern appears unremarkable. Evidence of monoclonal protein is not apparent. Performed at: [address] [id number] Cam Maker: Parveen Howe PhD, Phone: [phone] Performed By: #### L 500.4050, L001.0705, L509.1000, L506.1000 #### [facility] [address] [place], [address] Protein [Mass/Vol] 6.7 g/dL Normal 6.0-8.5 [facility] Comment on above: Order Comment: Order Date: 07/18/24 Order Info: [id number] - VITD25 Performed By: #### L 500.4050, L001.0705, L509.1000, L506.1000 #### [facility] [address] [place], [address] Comprehensive Metabolic Prof [facility] 07-20-2024 Albumin [Mass/Vol] 3.8 g/dL Normal 3.2-5.0 [facility] Comment on above: Order Comment: Order Date: 07/18/24 Order Info: 2885-2 - PROSER Order Info: 0786-1 - CMP Performed By: #### L 500.4050, L001.0705, L509.1000, L506.1000 #### [facility] [address] [place], [address] ALK P 166 U/L High 45-117 [facility] Comment on above: Order Comment: Order Date: 07/18/24 Order Info: 2885-2 - PROSER Order Info: 0786-1 - CMP Performed By: #### L 500.4050, L001.0705, L509.1000, L506.1000 #### [facility] [address] [place], [address] ALT [Catalytic activity/Vol] 17 U/L Normal 16-61 [facility] Comment on above: Order Comment: Order Date: 07/18/24 Order Info: 2885- - PROSER Order Info: 785-1 - CMP Performed By: #### L 500.4050, L001.0705, L509.1000, L506.1000 #### [facility] [address] [place], [address] AST [Catalytic activity/Vol] 22 U/L Normal 15-37 [facility] Comment on above: Order Comment: Order Date: 07/18/24 Order Info: [id number] - PROSER Order Info: 785-11 - CMP Performed By: #### L 500.4050, L001.0705, L509.1000, L506.1000 #### [facility] [address] [place], [address] Bilirubin [Mass/Vol] 2.00 mg/dL High 0.20-1.00 [facility] Comment on above: Order Comment: Order Date: 07/18/24 Order Info: 2885 - PROSER Order Info: 785- - CMP Result Comment: For patients on eltrombopag therapy, use of Dimension Brandon TBIL is not recommended. Performed By: #### L 500.4050, L001.0705, L509.1000, L506.1000 #### [facility] [address] [place], [address] BUN/CRE 14.3 RATIO Normal 10-20 [facility] Comment on above: Order Comment: Order Date: 07/18/24 Order Info: 2885- - PROSER Order Info: 785-1 - CMP Performed By: #### L 500.4050, L001.0705, L509.1000, L506.1000 #### [facility] [address] [place], [address] CA,Total 9.5 mg/dL Normal 8.5-10.1 [facility] Comment on above: Order Comment: Order Date: 07/18/24 Order Info: 2885 - PROSER Order Info: 785-11 - CMP Performed By: #### L 500.4050, L001.0705, L509.1000, L506.1000 #### [facility] [address] [place], [address] Chloride [Moles/Vol] 102 mmol/L Normal 98-107 [facility] Comment on above: Order Comment: Order Date: 07/18/24 Order Info: [id number] - PROSER Order Info: 785-11 - CMP Performed By: #### L 500.4050, L001.0705, L509.1000, L506.1000 #### [facility] [address] [place], [address] CO2 [Moles/Vol] 25.0 mmol/L Normal 21.0-32.0 [facility] Comment on above: Order Comment: Order Date: 07/18/24 Order Info: [id number] - PROSER Order Info: 785-11 - CMP Performed By: #### L 500.4050, L001.0705, L509.1000, L506.1000 #### [facility] [address] [place], [address] Creatinine [Mass/Vol] 0.84 mg/dL Normal 0.70-1.30 [facility] Comment on above: Order Comment: Order Date: 07/18/24 Order Info: [id number] - PROSER Order Info: 785-11 - CMP Result Comment: The validity of the calculated GFR GFRAA in patients over 70 years has not been determined. Clinical correlation is essential. Performed By: #### L 500.4050, L001.0705, L509.1000, L506.1000 #### [facility] [address] [place], [address] EST GFR - AA 114 mL/min Normal >60 [facility] Comment on above: Order Comment: Order Date: 07/18/24 Order Info: [id number] - PROSER Order Info: 785- - CMP Result Comment: Afri can Salvadorean GFR Calc Performed By: #### L 500.4050, L001.0705, L509.1000, L506.1000 #### [facility] [address] [place], [address] GAP 9 Normal 5-15 [facility] Comment on above: Order Comment: Order Date: 07/18/24 Order Info: 2884-12 - PROSER Order Info: 785-11 - CMP Performed By: #### L 500.4050, L001.0705, L509.1000, L506.1000 #### [facility] [address] [place], [address] GFR/1.73 sq M.predicted among non-blacks MDRD (S/P/Bld) [Vol rate/Area] 94 mL/min/{1.73_m2} Normal >60 [facility] Comment on above: Order Comment: Order Date: 07/18/24 Order Info: [id number] - PROSER Order Info: 785-11 - CMP Result Comment: Non- GFR Calc Performed By: #### L 500.4050, L001.0705, L509.1000, L506.1000 #### [facility] [address] [place], [address] Glucose [Mass/Vol] 90 mg/dL Normal 74-106 [facility] Comment on above: Order Comment: Order Date: 07/18/24 Order Info: 28803-08 - PROSER Order Info: 785- - CMP Performed By: #### L 500.4050, L001.0705, L509.1000, L506.1000 #### [facility] [address] [place], [address] Potassium [Moles/Vol] 4.0 mmol/L Normal 3.5-5.1 [facility] Comment on above: Order Comment: Order Date: 07/18/24 Order Info: 2885-2 - PROSER Order Info: 0786-1 - CMP Performed By: #### L 500.4050, L001.0705, L509.1000, L506.1000 #### [facility] [address] [place], [address] Sodium [Moles/Vol] 136 mmol/L Normal 136-145 [facility] Comment on above: Order Comment: Order Date: 07/18/24 Order Info: 2885-2 - PROSER Order Info: 0786- - CMP Performed By: #### L 500.4050, L001.0705, L509.1000, L506.1000 #### [facility] [address] [place], [address] Urea nitrogen [Mass/Vol] 12 mg/dL Normal 7-18 [facility] Comment on above: Order Comment: Order Date: 07/18/24 Order Info: 2885-2 - PROSER Order Info: 0786- - CMP Performed By: #### L 500.4050, L001.0705, L509.1000, L506.1000 #### [facility] [address] [place] [place], [address] PTHINon 07-20-2024 PTH 108.4 pg/mL High 18.4-80.1 [facility] Comment on above: Order Comment: Order Date: 07/18/24 Order Info: 0565-1 - PTHIN Performed By: #### L 500.4050, L001.0705, L509.1000, L506.1000 #### [facility] [address] [place], [address] Protein, Totalon 07-20-2024 Albumin/Globulin [Mass ratio] 1.1 {ratio} Normal 0.9-2.4 [facility] Comment on above: Order Comment: Order Date: 07/18/24 Order Info: 2885-2 - PROSER Order Info: 0786-1 - CMP Performed By: #### L 500.4050, L001.0705, L509.1000, L506.1000 #### [facility] [address] [place], [address] Globulin (S) [Mass/Vol] 3.5 g/dL Normal 2.2-4.2 [facility] Comment on above: Order Comment: Order Date: 07/18/24 Order Info: 2885-2 - PROSER Order Info: 0786- - CMP Performed By: #### L 500.4050, L001.0705, L509.1000, L506.1000 #### [facility] [address] [place], [address] T PROT 7.3 g/dL Normal 6.4-8.2 [facility] Comment on above: Order Comment: Order Date: 07/18/24 Order Info: 2885-2 - PROSER Order Info: 0786- - CMP Performed By: #### L 500.4050, L001.0705, L509.1000, L506.1000 #### [facility] [address] [place], [address] Vitamin D,25 Hydroxyon 07-20 Vitamin D 25-OH 30.6 ng/mL Normal [facility] Comment on above: Order Comment: Order Date: 07/18/24 Order Info: [id number] - VITD25 Result Comment: Stefanie min D 25(OH) Status Range Deficiency <20 ng/mL (50nmol/L) Insufficiency 20 - 30 ng/mL (50 - 75 nmol/L) Sufficiency 30 - 100 ng/mL (75 - 250 nmol/L) Toxicity >100 ng/mL (>250 nmol/L) Performed By: #### L 500.4050, L001.0705, L509.1000, L506.1000 #### [facility] [address] [place], [address] Basophil percentageOrdered B y: Angely Paulino on 11-16-2022 Chloride [Moles/Vol] 103 mmol/L 98-107 [facility] Glucose [Mass/Vol] 108 mg/dL 74-106 [facility] Comment on above: Fasting Glucose resu lt from 100 to 125 mg/dL suggests IMPAIRED HOMEOSTASIS per A.D.A. criteria. Potassium [Moles/Vol] 4.4 mmol/L 3.5-5.1 [facility] Sodium [Moles/Vol] 137 mmol/L 136-145 [facility] - Chemistry and C hemistry - challengeOrdered By: Angely Paulino on 11-16-2022 CO2 [Moles/Vol] 28.0 mmol/L 21.0-32.0 [facility] Urea nitrogen/Creatinine [Mass ratio] 17.3 mg/mg - [facility] No Panel InformationOrdered By: Angely Paulino on 11-16-2022 Estimated GFR (MDRD) Amer 96 mL/min >60 [facility] Comment on above: GFR Calc Estimated GFR (MDRD) Non-Af Amer 79 mL/min >60 [facility] Comment on above: Non- GFR Calc Serum or plasma calcium sheree urement (mass/volume)Ordered By: Angely Paulino on 11-16-2022 Calcium [Mass/Vol] 9.0 mg/dL 8.5-10.1 [facility] Serum or plasma creatinine m easurement (mass/volume)Ordered By: Angely Paulino on 11-16-2022 Creatinine [Mass/Vol] 0.98 mg/dL 0.70-1.30 [facility] Comment on above: The validity of the calculated GFR & GFRAA in patients over 70 years has not been determined. Clinical correlation is essential. Serum or plasma urea nitroge n measurement (mass/volume)Ordered By: Angely Paulino on 11-16-2022 Urea nitrogen [Mass/Vol] 17 mg/dL 7-18 [facility] Thin prep Papanicolaou smear with manual screeningOrdered By: Angely Paulino on 11-16-2022 Thin prep Papanicolaou smear with manual screening 6 5-15 [facility] Basophil percentageOrdered B y: Dr. Callahan on 10-01-2022 Bilirubin [Mass/Vol] 1.10 mg/dL 0.20-1.00 [facility] Comment on above: For patients on eltr ombopag therapy, use of Dimension Brandon TBIL is not recommended. Chloride [Moles/Vol] 93 mmol/L 98-107 [facility] Glucose [Mass/Vol] 99 mg/dL 74-106 [facility] Potassium [Moles/Vol] 4.4 mmol/L 3.5-5.1 [facility] Protein [Mass/Vol] 6.8 g/dL 6.4-8.2 [facility] Sodium [Moles/Vol] 130 mmol/L 136-145 [facility] - Chemistry and C hemistry - challengeOrdered By: Dr. Callahan on 10-01-2022 ALP [Catalytic activity/Vol] 131 U/L 45-117 [facility] ALT [Catalytic activity/Vol] 30 U/L 16-61 [facility] CO2 [Moles/Vol] 30.0 mmol/L 21.0-32.0 [facility] Globulin (S) [Mass/Vol] 3.0 g/dL 2.2-4.2 [facility] Magnesium [Mass/Vol] 1.8 mg/dL 1.6-2.6 [facility] Urea nitrogen/Creatinine [Mass ratio] 15.4 mg/mg 10-20 [facility] No Panel InformationOrdered By: Dr. Callahan on 10-01-2022 Estimated GFR (MDRD) Amer 104 mL/min >60 [facility] Comment on above: GFR Calc Estimated GFR (MDRD) Non-Af Amer 86 mL/min >60 [facility] Comment on above: Non- GFR Calc Urine Microalbumin/Creatinine Ratio 111.1 mg/g CRE <30 [facility] Serum or plasma albumin sheree urement (mass/volume)Ordered By: Dr. Callahan on 10-01-2022 Albumin [Mass/Vol] 3.8 g/dL 3.2-5.0 [facility] Serum or plasma albumin/glob ulin mass ratioOrdered By: Dr. Callahan on 10-01-2022 Albumin/Globulin [Mass ratio] 1.3 {ratio} 0.9-2.4 [facility] Serum or plasma calcium sheree urement (mass/volume)Ordered By: Dr. Callahan on 10-01-2022 Calcium [Mass/Vol] 8.6 mg/dL 8.5-10.1 [facility] Serum or plasma creatinine m easurement (mass/volume)Ordered By: Dr. Callahan on 10-01-2022 Creatinine [Mass/Vol] 0.91 mg/dL 0.70-1.30 [facility] Comment on above: The validity of the calculated GFR & GFRAA in patients over 70 years has not been determined. Clinical correlation is essential. Serum or plasma urea nitroge n measurement (mass/volume)Ordered By: Dr. Callahan on 10-01-2022 Urea nitrogen [Mass/Vol] 14 mg/dL 7-18 [facility] Thin prep Papanicolaou smear with manual screeningOrdered By: Dr. Callahan on 10-01-2022 Thin prep Papanicolaou smear with manual screening 23 U/L 15-37 [facility] Thin prep Papanicolaou smear with manual screening 7 5-15 [facility] Thin prep Papanicolaou smear with manual screening 76.9 mg/L NO RANGE EST. [facility] Urine creatinine measurement (mass/volume)Ordered By: Dr. Callahan on 10-01-2022 Creatinine (U) [Mass/Vol] 69.20 mg/dL NO RANGE EST. [facility] Basophil percentageOrdered B y: Dr. Callahan on 08-02-2022 Bilirubin [Mass/Vol] 1.20 mg/dL 0.20-1.00 [facility] Comment on above: For patients on eltr ombopag therapy, use of Dimension Brandon TBIL is not recommended. Chloride [Moles/Vol] 101 mmol/L 98-107 [facility] Glucose [Mass/Vol] 104 mg/dL 74-106 [facility] Comment on above: Fasting Glucose resu lt from 100 to 125 mg/dL suggests IMPAIRED HOMEOSTASIS per A.D.A. criteria. Potassium [Moles/Vol] 3.1 mmol/L 3.5-5.1 [facility] Protein [Mass/Vol] 7.0 g/dL 6.4-8.2 [facility] Sodium [Moles/Vol] 141 mmol/L 136-145 [facility] Laboratory - Chemistry and C hemistry - challengeOrdered By: Dr. Callahan on 08-02-2022 ALP [Catalytic activity/Vol] 149 U/L 45-117 [facility] ALT [Catalytic activity/Vol] 28 U/L 16-61 [facility] CO2 [Moles/Vol] 30.0 mmol/L 21.0-32.0 [facility] Globulin (S) [Mass/Vol] 3.2 g/dL 2.2-4.2 [facility] Urea nitrogen/Creatinine [Mass ratio] 15.0 mg/mg 10-20 [facility] No Panel InformationOrdered By: Dr. Callahan on 08-02-2022 Estimated GFR (MDRD) Amer 101 mL/min >60 [facility] Comment on above: GFR Calc Estimated GFR (MDRD) Non-Af Amer 84 mL/min >60 [facility] Comment on above: Non- GFR Calc Serum or plasma albumin sheree urement (mass/volume)Ordered By: Dr. Callahan on 08-02-2022 Albumin [Mass/Vol] 3.8 g/dL 3.2-5.0 [facility] Serum or plasma albumin/glob ulin mass ratioOrdered By: Dr. Callahan on 08-02-2022 Albumin/Globulin [Mass ratio] 1.2 {ratio} 0.9-2.4 [facility] Serum or plasma calcium sheree urement (mass/volume)Ordered By: Dr. Callahan on 08-02-2022 Calcium [Mass/Vol] 8.8 mg/dL 8.5-10.1 [facility] Serum or plasma creatinine m easurement (mass/volume)Ordered By: Dr. Callahan on 08-02-2022 Creatinine [Mass/Vol] 0.94 mg/dL 0.70-1.30 [facility] Comment on above: The validity of the calculated GFR & GFRAA in patients over 70 years has not been determined. Clinical correlation is essential. Serum or plasma urea nitroge n measurement (mass/volume)Ordered By: Dr. Callahan on 08-02-2022 Urea nitrogen [Mass/Vol] 14 mg/dL 7-18 [facility] Thin prep Papanicolaou smear with manual screeningOrdered By: Dr. Callahan on 08-02-2022 Thin prep Papanicolaou smear with manual screening 22 U/L 15-37 [facility] Thin prep Papanicolaou smear with manual screening 10 5-15 [facility] Basophil percentageon 2021 Bilirubin [Mass/Vol] 1.30 mg/dL 0.20-1.00 [facility] Work Phone: Comment on above: For patients on eltr ombopag therapy, use of Dimension [place] TBIL is not recommended. Chloride [Moles/Vol] 105 mmol/L 98-107 [facility] Work Phone: Glucose [Mass/Vol] 104 mg/dL 74-106 [facility] Work Phone: Comment on above: Fasting Glucose resu lt from 100 to 125 mg/dL suggests IMPAIRED HOMEOSTASIS per A.D.A. criteria. Potassium [Moles/Vol] 3.6 mmol/L 3.5-5.1 [facility] Work Phone: Protein [Mass/Vol] 7.2 g/dL 6.4-8.2 [facility] Work Phone: Sodium [Moles/Vol] 139 mmol/L 136-145 [facility] Work Phone: Laboratory - Chemistry and C hemistry - challengeon 06-08-2022 ALP [Catalytic activity/Vol] 118 U/L 45-117 [facility] Work Phone: ALT [Catalytic activity/Vol] 27 U/L 16-61 [facility] Work Phone: CO2 [Moles/Vol] 28.0 mmol/L 21.0-32.0 [facility] Work Phone: Globulin (S) [Mass/Vol] 3.3 g/dL 2.2-4.2 [facility] Work Phone: Urea nitrogen/Creatinine [Mass ratio] 19.0 mg/mg 10-20 [facility] Work Phone: No Panel Informationon 06-08 Estimated GFR (MDRD) Amer 107 mL/min >60 [facility] Work Phone: Comment on above: GFR Calc Estimated GFR (MDRD) Non-Af Amer 88 mL/min >60 [facility] Work Phone: Comment on above: Non- GFR Calc Serum or plasma albumin sheree urement (mass/volume)on 06-08-2022 Albumin [Mass/Vol] 3.9 g/dL 3.2-5.0 [facility] Work Phone: Serum or plasma albumin/glob ulin mass ratioon 06-08-2022 Albumin/Globulin [Mass ratio] 1.2 {ratio} 0.9-2.4 [facility] Work Phone: Serum or plasma calcium sheree urement (mass/volume)on 06-08-2022 Calcium [Mass/Vol] 9.0 mg/dL 8.5-10.1 [facility] Work Phone: Serum or plasma creatinine m easurement (mass/volume)on 06-08-2022 Creatinine [Mass/Vol] 0.89 mg/dL 0.70-1.30 [facility] Work Phone: Comment on above: The validity of the calculated GFR & GFRAA in patients over 70 years has not been determined. Clinical correlation is essential. Serum or plasma urea nitroge n measurement (mass/volume)on 06-08-2022 Urea nitrogen [Mass/Vol] 17 mg/dL 7-18 [facility] Work Phone: Thin prep Papanicolaou smear with manual screeningon 06-08-2022 Thin prep Papanicolaou smear with manual screening 27 U/L 15-37 [facility] Work Phone: Thin prep Papanicolaou smear with manual screening 6 5-15 [facility] Work Phone: Basophil percentageon 2021 Chloride [Moles/Vol] 103 mmol/L 98-107 [facility] Work Phone: Glucose [Mass/Vol] 104 mg/dL 74-106 [facility] Work Phone: Comment on above: Fasting Glucose resu lt from 100 to 125 mg/dL suggests IMPAIRED HOMEOSTASIS per A.D.A. criteria. Potassium [Moles/Vol] 3.6 mmol/L 3.5-5.1 [facility] Work Phone: Sodium [Moles/Vol] 141 mmol/L 136-145 [facility] Work Phone: Laboratory - Chemistry and C hemistry - challengeon 05-25-2022 CO2 [Moles/Vol] 32.0 mmol/L 21.0-32.0 [facility] Work Phone: Urea nitrogen/Creatinine [Mass ratio] 18.1 mg/mg 10-20 [facility] Work Phone: No Panel Informationon 05-25 Estimated GFR (MDRD) Amer 94 mL/min >60 [facility] Work Phone: Comment on above: GFR Calc Estimated GFR (MDRD) Non-Af Amer 78 mL/min >60 [facility] Work Phone: Comment on above: Non- GFR Calc Serum or plasma calcium sheree urement (mass/volume)on 05-25-2022 Calcium [Mass/Vol] 9.0 mg/dL 8.5-10.1 [facility] Work Phone: Serum or plasma creatinine m easurement (mass/volume)on 05-25-2022 Creatinine [Mass/Vol] 1.00 mg/dL 0.70-1.30 [facility] Work Phone: Comment on above: The validity of the calculated GFR & GFRAA in patients over 70 years has not been determined. Clinical correlation is essential. Serum or plasma urea nitroge n measurement (mass/volume)on 05-25-2022 Urea nitrogen [Mass/Vol] 18 mg/dL 7-18 [facility] Work Phone: Thin prep Papanicolaou smear with manual screeningon 05-25-2022 Thin prep Papanicolaou smear with manual screening 6 5-15 [facility] Work Phone: [phone] Absolute lymphocyte counton 05-17-2022 Lymphocytes Auto (Unsp spec) [#/Vol] 0.77 10*3/uL 0.83-4.51 [facility] Work Phone: Basophil percentageon 2021 Basophils/100 WBC (Bld) 0.5 % 0-1 [facility] Work Phone: Bilirubin [Mass/Vol] 1.20 mg/dL 0.20-1.00 [facility] Work Phone: Comment on above: For patients on eltr ombopag therapy, use of Dimension Brandon TBIL is not recommended. Chloride [Moles/Vol] 98 mmol/L 98-107 [facility] Work Phone: [phone] Eosinophils/100 WBC (Bld) 1.2 % 0-5 [facility] Work Phone: [phone] Glucose [Mass/Vol] 90 mg/dL 74-106 [facility] Work Phone: [phone] Neutrophils (Bld) [#/Vol] 7.7 10*3/uL 2.0-7.7 [facility] Work Phone: Neutrophils/100 WBC (Bld) 80.8 % 47-70 [facility] Work Phone: [phone] Potassium [Moles/Vol] 3.0 mmol/L 3.5-5.1 [facility] Work Phone: [phone] Protein [Mass/Vol] 7.2 g/dL 6.4-8.2 [facility] Work Phone: Sodium [Moles/Vol] 140 mmol/L 136-145 [facility] Work Phone: WBC (Bld) [#/Vol] 9.6 10*3/uL 4.4-11.0 [facility] Work Phone: [phone] Blood erythrocytes count (nu mber/volume)on 05-17-2022 RBC (Bld) [#/Vol] 3.98 10*6/uL 4.6-6.2 [facility] Work Phone: Blood hemoglobin measurement (mass/volume)on 05-17-2022 Hemoglobin (Bld) [Mass/Vol] 12.4 g/dL 13.0-16.5 [facility] Work Phone: Blood lymphocytes/100 leukoc yteson 05-17-2022 Lymphocytes/100 WBC (Bld) 8.1 % 19-41 [facility] Work Phone: Blood monocytes/100 leukocyt eson 05-17-2022 Monocytes/100 WBC (Bld) 8.4 % 0-10 [facility] Work Phone: Blood platelet mean volumeon 05-17-2022 Platelet mean volume (Bld) [Entitic vol] 8.8 fL 6.2-12.0 [facility] Work Phone: Determination of erythrocyte mean corpuscular volume (MCV)on 05-17-2022 MCV (RBC) [Entitic vol] 93.0 fL 80-94 [facility] Work Phone: Hematocrit Auto (Bld) [Volum e fraction]on 05-17-2022 Hematocrit (Bld) [Volume fraction] 37.0 % 40-54 [facility] Work Phone: Hemoglobin in reticulocytes (mass per reticulocyte)on 05-17-2022 Hemoglobin (Reticulocytes) [Entitic mass] 30.8 pg 30-35 [facility] Work Phone: Iron measurement (mass/mass) on 05-17-2022 Iron (Unsp spec) [Mass/Mass] 70 ug/dL 65-175 [facility] Work Phone: Laboratory - Chemistry and C hemistry - challengeon 05-17-2022 ALP [Catalytic activity/Vol] 109 U/L 45-117 [facility] Work Phone: ALT [Catalytic activity/Vol] 19 U/L 16-61 [facility] Work Phone: CO2 [Moles/Vol] 34.0 mmol/L 21.0-32.0 [facility] Work Phone: Cobalamin (Vitamin B12) [Mass/Vol] 1482 pg/mL 211-911 [facility] Work Phone: Globulin (S) [Mass/Vol] 3.7 g/dL 2.2-4.2 [facility] Work Phone: [phone] Magnesium [Mass/Vol] 1.9 mg/dL 1.6-2.6 [facility] Work Phone: Urea nitrogen/Creatinine [Mass ratio] 17.1 mg/mg 10-20 [facility] Work Phone: Laboratory - Hematology and Cell countson 05-17-2022 Erythrocyte distribution width (RBC) [Entitic vol] 54.7 fL 35.1-43.9 [facility] Work Phone: Erythrocyte distribution width (RBC) [Ratio] 16.0 % 11.6-14.6 [facility] Work Phone: Immature granulocytes/100 WBC (Bld) 1.000 % 0.0-0.9 [facility] Work Phone: Comment on above: IG% - Immature Granu locytes (promyelocytes, myelocytes and metamyelocytes) > 1% indicates that a LEFT SHIFT is Present. MCH (RBC) [Entitic mass] 31.2 pg 27.0-32.0 [facility] Work Phone: Nucleated RBC/100 WBC (Bld) [Ratio] 0 % 0-5 [facility] Work Phone: MCHC Auto (RBC) [Mass/Vol]on 05-17-2022 MCHC (RBC) [Mass/Vol] 33.5 g/dL 32-36 [facility] Work Phone: No Panel Informationon 05-17 Estimated GFR (MDRD) Amer 101 mL/min >60 [facility] Work Phone: Comment on above: GFR Calc Estimated GFR (MDRD) Non-Af Amer 84 mL/min >60 [facility] Work Phone: Comment on above: Non- GFR Calc Immature Reticulocyte Fraction 25.60 % 3.00-15.90 [facility] Work Phone: Reticulocyte Count 2.47 % 0.5-1.5 [facility] Work Phone: Total Iron Binding Capacity 284 ug/dL 250-450 [facility] Work Phone: Platelets bldon 05-17-2022 Platelets (Bld) [#/Vol] 224 10*3/uL 150-450 [facility] Work Phone: Serum or plasma albumin sheree urement (mass/volume)on 05-17-2022 Albumin [Mass/Vol] 3.5 g/dL 3.2-5.0 [facility] Work Phone: Serum or plasma albumin/glob ulin mass ratioon 05-17-2022 Albumin/Globulin [Mass ratio] 0.9 {ratio} 0.9-2.4 [facility] Work Phone: Serum or plasma calcium sheree urement (mass/volume)on 05-17-2022 Calcium [Mass/Vol] 8.8 mg/dL 8.5-10.1 [facility] Work Phone: Serum or plasma creatinine m easurement (mass/volume)on 05-17-2022 Creatinine [Mass/Vol] 0.94 mg/dL 0.70-1.30 [facility] Work Phone: Comment on above: The validity of the calculated GFR & GFRAA in patients over 70 years has not been determined. Clinical correlation is essential. Serum or plasma folate measu rement (mass/volume)on 05-17-2022 Folate [Mass/Vol] 5.90 ng/mL 3.1-55.4 [facility] Work Phone: Serum or plasma iron saturat ion measurement (mass fraction)on 05-17-2022 Iron saturation [Mass fraction] 24.6 % 15.0-55.0 [facility] Work Phone: Serum or plasma urea nitroge n measurement (mass/volume)on 05-17-2022 Urea nitrogen [Mass/Vol] 16 mg/dL 7-18 [facility] Work Phone: Thin prep Papanicolaou smear with manual screeningon 05-17-2022 Thin prep Papanicolaou smear with manual screening 20 U/L 15-37 [facility] Work Phone: Thin prep Papanicolaou smear with manual screening 8 5-15 [facility] Work Phone: Absolute lymphocyte counton 04-15-2022 Lymphocytes Auto (Unsp spec) [#/Vol] 1.00 10*3/uL 0.83-4.51 [facility] Work Phone: Basophil percentageon 2021 Basophils/100 WBC (Bld) 0.6 % 0-1 [facility] Work Phone: Chloride [Moles/Vol] 103 mmol/L 98-107 [facility] Work Phone: Eosinophils/100 WBC (Bld) 2.7 % 0-5 [facility] Work Phone: Glucose [Mass/Vol] 101 mg/dL 74-106 [facility] Work Phone: Comment on above: Fasting Glucose resu lt from 100 to 125 mg/dL suggests IMPAIRED HOMEOSTASIS per A.D.A. criteria. Neutrophils (Bld) [#/Vol] 6.0 10*3/uL 2.0-7.7 [facility] Work Phone: Neutrophils/100 WBC (Bld) 74.4 % 47-70 [facility] Work Phone: Potassium [Moles/Vol] 2.9 mmol/L 3.5-5.1 [facility] Work Phone: Sodium [Moles/Vol] 140 mmol/L 136-145 [facility] Work Phone: WBC (Bld) [#/Vol] 8.1 10*3/uL 4.4-11.0 [facility] Work Phone: Blood erythrocytes count (nu mber/volume)on 04-15-2022 RBC (Bld) [#/Vol] 4.00 10*6/uL 4.6-6.2 [facility] Work Phone: Blood hemoglobin measurement (mass/volume)on 04-15-2022 Hemoglobin (Bld) [Mass/Vol] 12.4 g/dL 13.0-16.5 [facility] Work Phone: Blood lymphocytes/100 leukoc yteson 04-15-2022 Lymphocytes/100 WBC (Bld) 12.4 % 19-41 [facility] Work Phone: Blood monocytes/100 leukocyt eson 04-15-2022 Monocytes/100 WBC (Bld) 8.8 % 0-10 [facility] Work Phone: Blood platelet mean volumeon 04-15-2022 Platelet mean volume (Bld) [Entitic vol] 8.4 fL 6.2-12.0 [facility] Work Phone: Determination of erythrocyte mean corpuscular volume (MCV)on 04-15-2022 MCV (RBC) [Entitic vol] 87.5 fL 80-94 [facility] Work Phone: Hematocrit Auto (Bld) [Volum e fraction]on 04-15-2022 Hematocrit (Bld) [Volume fraction] 35.0 % 40-54 [facility] Work Phone: Laboratory - Chemistry and C hemistry - challengeon 04-15-2022 CO2 [Moles/Vol] 30.0 mmol/L 21.0-32.0 [facility] Work Phone: Magnesium [Mass/Vol] 1.7 mg/dL 1.6-2.6 [facility] Work Phone: Urea nitrogen/Creatinine [Mass ratio] 19.0 mg/mg 10-20 [facility] Work Phone: Laboratory - Hematology and Cell countson 04-15-2022 Erythrocyte distribution width (RBC) [Entitic vol] 49.6 fL 35.1-43.9 [facility] Work Phone: Erythrocyte distribution width (RBC) [Ratio] 15.8 % 11.6-14.6 [facility] Work Phone: Immature granulocytes/100 WBC (Bld) 1.100 % 0.0-0.9 [facility] Work Phone: Comment on above: IG% - Immature Granu locytes (promyelocytes, myelocytes and metamyelocytes) > 1% indicates that a LEFT SHIFT is Present. MCH (RBC) [Entitic mass] 31.0 pg 27.0-32.0 [facility] Work Phone: Nucleated RBC/100 WBC (Bld) [Ratio] 0 % 0-5 [facility] Work Phone: MCHC Auto (RBC) [Mass/Vol]on 04-15-2022 MCHC (RBC) [Mass/Vol] 35.4 g/dL 32-36 [facility] Work Phone: No Panel Informationon 04-15 Estimated GFR (MDRD) Amer 106 mL/min >60 [facility] Work Phone: Comment on above: GFR Calc Estimated GFR (MDRD) Non-Af Amer 88 mL/min >60 [facility] Work Phone: Comment on above: Non- GFR Calc Platelets bldon 04-15-2022 Platelets (Bld) [#/Vol] 140 10*3/uL 150-450 [facility] Work Phone: Serum or plasma calcium sheree urement (mass/volume)on 04-15-2022 Calcium [Mass/Vol] 8.8 mg/dL 8.5-10.1 [facility] Work Phone: Serum or plasma creatinine m easurement (mass/volume)on 04-15-2022 Creatinine [Mass/Vol] 0.90 mg/dL 0.70-1.30 [facility] Work Phone: Comment on above: The validity of the calculated GFR & GFRAA in patients over 70 years has not been determined. Clinical correlation is essential. Serum or plasma urea nitroge n measurement (mass/volume)on 04-15-2022 Urea nitrogen [Mass/Vol] 17 mg/dL 7-18 [facility] Work Phone: Thin prep Papanicolaou smear with manual screeningon 04-15-2022 Thin prep Papanicolaou smear with manual screening 7 5-15 [facility] Work Phone: Basophil percentageon 2021 Chloride [Moles/Vol] 103 mmol/L 98-107 [facility] Work Phone: Glucose [Mass/Vol] 101 mg/dL 74-106 [facility] Work Phone: Comment on above: Fasting Glucose resu lt from 100 to 125 mg/dL suggests IMPAIRED HOMEOSTASIS per A.D.A. criteria. Potassium [Moles/Vol] 3.7 mmol/L 3.5-5.1 [facility] Work Phone: Sodium [Moles/Vol] 138 mmol/L 136-145 [facility] Work Phone: Laboratory - Chemistry and C hemistry - challengeon 04-01-2022 CO2 [Moles/Vol] 28.0 mmol/L 21.0-32.0 [facility] Work Phone: Urea nitrogen/Creatinine [Mass ratio] 23.3 mg/mg 10-20 [facility] Work Phone: No Panel Informationon 04-01 Estimated GFR (MDRD) Amer 112 mL/min >60 [facility] Work Phone: Comment on above: GFR Calc Estimated GFR (MDRD) Non-Af Amer 92 mL/min >60 [facility] Work Phone: Comment on above: Non- GFR Calc Serum or plasma calcium sheree urement (mass/volume)on 04-01-2022 Calcium [Mass/Vol] 9.1 mg/dL 8.5-10.1 [facility] Work Phone: Serum or plasma creatinine m easurement (mass/volume)on 04-01-2022 Creatinine [Mass/Vol] 0.86 mg/dL 0.70-1.30 [facility] Work Phone: Comment on above: The validity of the calculated GFR & GFRAA in patients over 70 years has not been determined. Clinical correlation is essential. Serum or plasma urea nitroge n measurement (mass/volume)on 04-01-2022 Urea nitrogen [Mass/Vol] 20 mg/dL 7-18 [facility] Work Phone: Thin prep Papanicolaou smear with manual screeningon 04-01-2022 Thin prep Papanicolaou smear with manual screening 7 5-15 [facility] Work Phone: Absolute lymphocyte counton 02-19-2022 Lymphocytes Auto (Unsp spec) [#/Vol] 0.86 10*3/uL 0.83-4.51 [facility] Work Phone: Basophil percentageon 2021 Basophils/100 WBC (Bld) 0.7 % 0-1 [facility] Work Phone: Chloride [Moles/Vol] 102 mmol/L 98-107 [facility] Work Phone: Eosinophils/100 WBC (Bld) 1.6 % 0-5 [facility] Work Phone: Glucose [Mass/Vol] 105 mg/dL 74-106 [facility] Work Phone: Comment on above: Fasting Glucose resu lt from 100 to 125 mg/dL suggests IMPAIRED HOMEOSTASIS per A.D.A. criteria. Neutrophils (Bld) [#/Vol] 7.7 10*3/uL 2.0-7.7 [facility] Work Phone: Neutrophils/100 WBC (Bld) 80.9 % 47-70 [facility] Work Phone: [phone] Potassium [Moles/Vol] 3.6 mmol/L 3.5-5.1 [facility] Work Phone: Sodium [Moles/Vol] 139 mmol/L 136-145 [facility] Work Phone: WBC (Bld) [#/Vol] 9.5 10*3/uL 4.4-11.0 [facility] Work Phone: Blood erythrocytes count (nu mber/volume)on 02-19-2022 RBC (Bld) [#/Vol] 4.21 10*6/uL 4.6-6.2 [facility] Work Phone: Blood hemoglobin measurement (mass/volume)on 02-19-2022 Hemoglobin (Bld) [Mass/Vol] 12.8 g/dL 13.0-16.5 [facility] Work Phone: Blood lymphocytes/100 leukoc yteson 02-19-2022 Lymphocytes/100 WBC (Bld) 9.0 % 19-41 [facility] Work Phone: Blood monocytes/100 leukocyt eson 02-19-2022 Monocytes/100 WBC (Bld) 6.8 % 0-10 [facility] Work Phone: Blood platelet mean volumeon 02-19-2022 Platelet mean volume (Bld) [Entitic vol] 8.1 fL 6.2-12.0 [facility] Work Phone: Determination of erythrocyte mean corpuscular volume (MCV)on 02-19-2022 MCV (RBC) [Entitic vol] 88.4 fL 80-94 [facility] Work Phone: Hematocrit Auto (Bld) [Volum e fraction]on 02-19-2022 Hematocrit (Bld) [Volume fraction] 37.2 % 40-54 [facility] Work Phone: Laboratory - Chemistry and C hemistry - challengeon 02-19-2022 CO2 [Moles/Vol] 31.0 mmol/L 21.0-32.0 [facility] Work Phone: Magnesium [Mass/Vol] 1.9 mg/dL 1.6-2.6 [facility] Work Phone: Urea nitrogen/Creatinine [Mass ratio] 18.5 mg/mg 10-20 [facility] Work Phone: Laboratory - Hematology and Cell countson 02-19-2022 Erythrocyte distribution width (RBC) [Entitic vol] 49.7 fL 35.1-43.9 [facility] Work Phone: Erythrocyte distribution width (RBC) [Ratio] 15.4 % 11.6-14.6 [facility] Work Phone: Immature granulocytes/100 WBC (Bld) 1.000 % 0.0-0.9 [facility] Work Phone: Comment on above: IG% - Immature Granu locytes (promyelocytes, myelocytes and metamyelocytes) > 1% indicates that a LEFT SHIFT is Present. MCH (RBC) [Entitic mass] 30.4 pg 27.0-32.0 [facility] Work Phone: Nucleated RBC/100 WBC (Bld) [Ratio] 0 % 0-5 [facility] Work Phone: MCHC Auto (RBC) [Mass/Vol]on 02-19-2022 MCHC (RBC) [Mass/Vol] 34.4 g/dL 32-36 [facility] Work Phone: No Panel Informationon 02-19 Estimated GFR (MDRD) Amer 111 mL/min >60 [facility] Work Phone: Comment on above: GFR Calc Estimated GFR (MDRD) Non-Af Amer 92 mL/min >60 [facility] Work Phone: Comment on above: Non- GFR Calc Thyroid Stimulating Hormone (TSH) 1.59 uIU/mL 0.358-3.74 [facility] Work Phone: Platelets bldon 02-19-2022 Platelets (Bld) [#/Vol] 158 10*3/uL 150-450 [facility] Work Phone: Serum or plasma calcium sheree urement (mass/volume)on 02-19-2022 Calcium [Mass/Vol] 8.9 mg/dL 8.5-10.1 [facility] Work Phone: Serum or plasma creatinine m easurement (mass/volume)on 02-19-2022 Creatinine [Mass/Vol] 0.86 mg/dL 0.70-1.30 [facility] Work Phone: Comment on above: The validity of the calculated GFR & GFRAA in patients over 70 years has not been determined. Clinical correlation is essential. Serum or plasma urea nitroge n measurement (mass/volume)on 02-19-2022 Urea nitrogen [Mass/Vol] 16 mg/dL 7-18 [facility] Work Phone: Thin prep Papanicolaou smear with manual screeningon 02-19-2022 Thin prep Papanicolaou smear with manual screening 6 5-15 [facility] Work Phone: Absolute lymphocyte counton 01-19-2022 Lymphocytes Auto (Unsp spec) [#/Vol] 0.80 10*3/uL 0.83-4.51 [facility] Work Phone: Basophil percentageon 2021 Basophils/100 WBC (Bld) 0.8 % 0-1 [facility] Work Phone: Bilirubin [Mass/Vol] 1.90 mg/dL 0.20-1.00 [facility] Work Phone: Comment on above: For patients on eltr ombopag therapy, use of Dimension Brandon TBIL is not recommended. Chloride [Moles/Vol] 104 mmol/L 98-107 [facility] Work Phone: Cholesterol [Mass/Vol] 182 mg/dL <200 [facility] Work Phone: Comment on above: <200 mg/dL Desirable 200-240 mg/dL Borderline >240 mg/dL High Risk Eosinophils/100 WBC (Bld) 3.2 % 0-5 [facility] Work Phone: Glucose [Mass/Vol] 99 mg/dL 74-106 [facility] Work Phone: Neutrophils (Bld) [#/Vol] 4.9 10*3/uL 2.0-7.7 [facility] Work Phone: Neutrophils/100 WBC (Bld) 75.6 % 47-70 [facility] Work Phone: Potassium [Moles/Vol] 2.9 mmol/L 3.5-5.1 [facility] Work Phone: [phone] Protein [Mass/Vol] 7.4 g/dL 6.4-8.2 [facility] Work Phone: Sodium [Moles/Vol] 139 mmol/L 136-145 [facility] Work Phone: [phone] Triglyceride [Mass/Vol] 61 mg/dL <199 [facility] Work Phone: Comment on above: The drugs N-Acetylcy steine and Metamizole may falsely depress this assay.Serum Triglycerides Reference Interval Normal <150 mg/dL Borderline high 150 - 199 mg/dL High 200 - 499 mg/dL Very High > or = 500 mg/dL WBC (Bld) [#/Vol] 6.5 10*3/uL 4.4-11.0 [facility] Work Phone: [phone] Blood erythrocytes count (nu mber/volume)on 01-19-2022 RBC (Bld) [#/Vol] 3.86 10*6/uL 4.6-6.2 [facility] Work Phone: Blood hemoglobin measurement (mass/volume)on 01-19-2022 Hemoglobin (Bld) [Mass/Vol] 11.9 g/dL 13.0-16.5 [facility] Work Phone: Blood lymphocytes/100 leukoc yteson 01-19-2022 Lymphocytes/100 WBC (Bld) 12.3 % 19-41 [facility] Work Phone: Blood monocytes/100 leukocyt eson 01-19-2022 Monocytes/100 WBC (Bld) 7.8 % 0-10 [facility] Work Phone: Blood platelet mean volumeon 01-19-2022 Platelet mean volume (Bld) [Entitic vol] 9.1 fL 6.2-12.0 [facility] Work Phone: Determination of erythrocyte mean corpuscular volume (MCV)on 01-19-2022 MCV (RBC) [Entitic vol] 88.1 fL 80-94 [facility] Work Phone: Hematocrit Auto (Bld) [Volum e fraction]on 01-19-2022 Hematocrit (Bld) [Volume fraction] 34.0 % 40-54 [facility] Work Phone: Iron measurement (mass/mass) on 01-19-2022 Iron (Unsp spec) [Mass/Mass] 83 ug/dL 65-175 [facility] Work Phone: Laboratory - Chemistry and C hemistry - challengeon 01-19-2022 ALP [Catalytic activity/Vol] 123 U/L 45-117 [facility] Work Phone: ALT [Catalytic activity/Vol] 21 U/L 16-61 [facility] Work Phone: CO2 [Moles/Vol] 30.0 mmol/L 21.0-32.0 [facility] Work Phone: Cobalamin (Vitamin B12) [Mass/Vol] 290 pg/mL 211-911 [facility] Work Phone: Globulin (S) [Mass/Vol] 3.4 g/dL 2.2-4.2 [facility] Work Phone: Magnesium [Mass/Vol] 1.7 mg/dL 1.6-2.6 [facility] Work Phone: Urea nitrogen/Creatinine [Mass ratio] 16.9 mg/mg 10-20 [facility] Work Phone: Laboratory - Hematology and Cell countson 01-19-2022 Erythrocyte distribution width (RBC) [Entitic vol] 49.1 fL 35.1-43.9 [facility] Work Phone: Erythrocyte distribution width (RBC) [Ratio] 15.3 % 11.6-14.6 [facility] Work Phone: Immature granulocytes/100 WBC (Bld) 0.300 % 0.0-0.9 [facility] Work Phone: Comment on above: IG% - Immature Granu locytes (promyelocytes, myelocytes and metamyelocytes) > 1% indicates that a LEFT SHIFT is Present. MCH (RBC) [Entitic mass] 30.8 pg 27.0-32.0 [facility] Work Phone: Nucleated RBC/100 WBC (Bld) [Ratio] 0 % 0-5 [facility] Work Phone: MCHC Auto (RBC) [Mass/Vol]on 01-19-2022 MCHC (RBC) [Mass/Vol] 35.0 g/dL 32-36 [facility] Work Phone: No Panel Informationon 01-19 Estimated GFR (MDRD) Amer 108 mL/min >60 [facility] Work Phone: Comment on above: GFR Calc Estimated GFR (MDRD) Non-Af Amer 89 mL/min >60 [facility] Work Phone: Comment on above: Non- GFR Calc Prostate Specific Antigen Screen 5.38 ng/mL 0.00-4.00 [facility] Work Phone: Comment on above: This test was perfor med using the TPSA assay method for the[employer] chemistry system. Values obtained with differentassay methods cannot be used interchangably.When changing PSA assays in the course of monitoring apatient, additional sequential testing should be carriedout to confirm baseline values. Total Iron Binding Capacity 336 ug/dL 250-450 [facility] Work Phone: Urine Microalbumin/Creatinine Ratio 315.8 mg/g CRE <30 [facility] Work Phone: Platelets bldon 01-19-2022 Platelets (Bld) [#/Vol] 149 10*3/uL 150-450 [facility] Work Phone: Serum or plasma albumin sheree urement (mass/volume)on 01-19-2022 Albumin [Mass/Vol] 4.0 g/dL 3.2-5.0 [facility] Work Phone: Serum or plasma albumin/glob ulin mass ratioon 01-19-2022 Albumin/Globulin [Mass ratio] 1.2 {ratio} 0.9-2.4 [facility] Work Phone: Serum or plasma calcium sheree urement (mass/volume)on 01-19-2022 Calcium [Mass/Vol] 9.2 mg/dL 8.5-10.1 [facility] Work Phone: Serum or plasma cholesterol in HDL measurement (mass/volume)on 01-19-2022 Cholesterol in HDL [Mass/Vol] 54 mg/dL >40 [facility] Work Phone: Comment on above: The drugs N-Acetylcy steine and Metamizole may falsely depress this assay. Reference Range HDL <40 mg/dL Low HDL Cholesterol HDL >or= 60 mg/dL High HDL Cholesterol Serum or plasma cholesterol in VLDL measurement (mass/volume)on 01-19-2022 Cholesterol in VLDL [Mass/Vol] 12 mg/dL 5-40 [facility] Work Phone: Serum or plasma creatinine m easurement (mass/volume)on 01-19-2022 Creatinine [Mass/Vol] 0.89 mg/dL 0.70-1.30 [facility] Work Phone: Comment on above: The validity of the calculated GFR & GFRAA in patients over 70 years has not been determined. Clinical correlation is essential. Serum or plasma ferritin diane surement (mass/volume)on 01-19-2022 Ferritin [Mass/Vol] 183 ng/mL 26-388 [facility] Work Phone: Serum or plasma low density lipoprotein (LDL) cholesterol measurement (mass/volume)on 01-19-2022 Cholesterol in LDL [Mass/Vol] 116 mg/dL 0-130 [facility] Work Phone: Serum or plasma urea nitroge n measurement (mass/volume)on 01-19-2022 Urea nitrogen [Mass/Vol] 15 mg/dL 7-18 [facility] Work Phone: Serum or plasma uric acid me asurement (mass/volume)on 01-19-2022 Urate [Mass/Vol] 7.1 mg/dL 3.5-7.2 [facility] Work Phone: Comment on above: The drugs N-Acetylcy steine and Metamizole may falsely depress this assay. Thin prep Papanicolaou smear with manual screeningon 01-19-2022 Thin prep Papanicolaou smear with manual screening 20 U/L 15-37 [facility] Work Phone: Thin prep Papanicolaou smear with manual screening 5 5-15 [facility] Work Phone: Thin prep Papanicolaou smear with manual screening 180.0 mg/L NO RANGE EST. [facility] Work Phone: Urine creatinine measurement (mass/volume)on 01-19-2022 Creatinine (U) [Mass/Vol] 57.00 mg/dL NO RANGE EST. [facility] Work Phone: Vital Signs Date Time Vital Sign Value Performing Clinician Faci lity 0827-2025 15:46-0400 Body temperature 98 [degF] Dr. Shankar Callahan MD Work Phone: [facility] 07-03-2025 15:46-0400 Diastolic blood pressure 90 mm[Hg] Dr. Shankar Callahan MD Work Phone: [phone])318-978155 [address] 07-03-2025 15:46-0400 Heart rate 81 /min Dr. Shankar Callahan MD Work Phone: 5(086)951-056074 [place] [address] 07-03-2025 15:46-0400 Respiratory rate 18 /min Dr. Shankar Callahan MD Work Phone: [phone])[phone] [address] [address] 07-03-2025 15:46-0400 SaO2% (BldA) [Mass fraction] 100 % Dr. Shankar Callahan MD Work Phone: [phone])[phone] [address] [address] 07-03-2025 15:46-0400 Systolic blood pressure 155 mm[Hg] Dr. Shankar Callahan MD Work Phone: [phone])371-988755 [address] 07-03-2025 12:13-0400 Body height 177.[address] Shankar Callahan MD Work Phone: 9(625)365-171574 [address] [address] 07-03-2025 12:13-0400 Body mass index (BMI) [Ratio] 26.1 kg/m2 Dr. Shankar Callahan MD Work Phone: 2(551)238-381448 [place] [address] 07-03-2025 12:13-0400 Body weight 82.[address] Shankar Callahan MD Work Phone: [facility] 06-25-2022 14:51-0400 Body height 177.[address] Shankar Callahan Work Phone: [facility] Work Phone: 06-25-2022 14:50-0400 Body mass index (BMI) [Ratio] 25.5 kg/m2 Dr. Shankar Callahan Work Phone: [facility] Work Phone: 06-25-2022 14:50-0400 Body weight 80.[address] Shankar Callahan Work Phone: [facility] Work Phone: 06-25-2022 14:50-0400 Diastolic blood pressure 94 mm[Hg] Dr. Shankar Callahan Work Phone: [facility] Work Phone: 06-25-2022 14:50-0400 Heart rate 82 /min Dr. Shankar Callahan Work Phone: [facility] Work Phone: 06-25-2022 14:50-0400 Respiratory rate 16 /min Dr. Shankar Callahan Work Phone: [facility] Work Phone: 06-25-2022 14:50-0400 Systolic blood pressure 168 mm[Hg] Dr. Shankar Callahan Work Phone: [facility] Work Phone: 05-21-2022 13:40-0400 Body height 177.[address] Shankar Callahan Work Phone: [facility] Work Phone: 02-19-2022 11:15-0400 Body height 177.[address] Shankar Callahan Work Phone: [facility] Work Phone: 02-19-2022 11:15-0400 Body mass index (BMI) [Ratio] 25.9 kg/m2 Dr. Shankar Callahan Work Phone: [facility] Work Phone: 02-19-2022 11:15-0400 Body mass index (BMI) [Ratio] 25 kg/m2 Dr. Shankar Callahan Work Phone: [facility] Work Phone: 02-19-2022 11:15-0400 Body weight 82.[address] Shankar Callahan Work Phone: [facility] Work Phone: 02-19-2022 11:15-0400 Body weight 78.[address] Shankar Callahan Work Phone: [facility] Work Phone: 02-19-2022 11:15-0400 Diastolic blood pressure 88 mm[Hg] Dr. Shankar Callahan Work Phone: [facility] Work Phone: 02-19-2022 11:15-0400 Diastolic blood pressure 98 mm[Hg] Dr. Shankar Callahan Work Phone: [facility] Work Phone: 02-19-2022 11:15-0400 Heart rate 88 /min Dr. Shankar Callahan Work Phone: [facility] Work Phone: 02-19-2022 11:15-0400 Heart rate 98 /min Dr. Shankar Callahan Work Phone: [facility] Work Phone: 02-19-2022 11:15-0400 Respiratory rate 16 /min Dr. Shankar Callahan Work Phone: [facility] Work Phone: 02-19-2022 11:15-0400 Respiratory rate 18 /min Dr. Shankar Callahan Work Phone: [facility] Work Phone: 02-19-2022 11:15-0400 SaO2% (BldA) [Mass fraction] 98 % Dr. Shankar Callahan Work Phone: [facility] Work Phone: 02-19-2022 11:15-0400 Systolic blood pressure 170 mm[Hg] Dr. Shankar Callahan Work Phone: [facility] Work Phone: 02-19-2022 11:15-0400 Systolic blood pressure 194 mm[Hg] Dr. Shankar Callahan Work Phone: [facility] Work Phone: 02-19-2022 11:15-0400 Body height 177.[address] Shankar Callahan Work Phone: [facility] Work Phone: 02-19-2022 11:15-0400 Body mass index (BMI) [Ratio] 25.9 kg/m2 Dr. Shankar Callahan Work Phone: [facility] Work Phone: 02-19-2022 11:15-0400 Body weight 82.[address] Shankar Callahan Work Phone: [facility] Work Phone: 02-19-2022 11:15-0400 Diastolic blood pressure 88 mm[Hg] Dr. Shankar Callahan Work Phone: [facility] Work Phone: 02-19-2022 11:15-0400 Heart rate 88 /min Dr. Shankar Callahan Work Phone: [facility] Work Phone: 02-19-2022 11:15-0400 Respiratory rate 16 /min Dr. Shankar Callahan Work Phone: [facility] Work Phone: 02-19-2022 11:15-0400 Systolic blood pressure 170 mm[Hg] Dr. Shankar Callahan Work Phone: [facility] Work Phone: Encounters Encounter Date Encounter Type Care Provider Facility Start: 07-03-2025 End: 07-03-2025 Emergency department patient visit Dr. Shankar Callahan MD Work Phone: -Emergency Department Work Phone: Start: 07-02-2025 Patient encounter procedure Freddie Isaacs [facility] -Laboratory Joni Jcak Start: 07-02-2025 ambulatory Shankar Callahan Facility:[facility] Start: 07-25-2024 End: 07-25-2024 ambulatory Angely Paulino NP Facility:[facility] Start: 07-20-2024 End: 07-20-2024 ambulatory Shankar Callahan Facility:[facility] Start: 11-16-2022 End: 11-16-2022 ambulatory [facility] Work Phone: Start: 11-16-2022 End: 11-16-2022 Patient encounter procedure [facility] Start: 10-01-2022 End: 10-01-[address] Shankar Callahan Work Phone: [facility] Work Phone: Start: 10-01-2022 End: 10-01-[address] Shankar Callahan Work Phone: [facility] Start: 08-02-2022 End: 08-02-[address] Shankar Callahan Work Phone: [facility] Work Phone: Start: 08-02-2022 End: 08-02-[address] Shankar Callahan Work Phone: [facility] Start: 06-25-2022 End: 06-25-[address] Shankar Callahan Work Phone: [facility] Start: 06-08-2022 End: 06-08-[address] Shankar Callahan Work Phone: [facility] Start: 05-25-2022 End: 05-25-[address] Shankar Callahan Work Phone: [facility] Start: 05-21-2022 End: 05-21-[address] Shankar Callahan Work Phone: [facility] Start: 05-17-2022 End: 05-17-[address] Shankar Callahan Work Phone: [facility] Start: 05-03-2022 Non-patient / Non-visit Dr. Jona Callahan Work Phone: [facility] Start: 05-03-2022 End: 05-03-[address] [facility] Start: 04-15-2022 End: 04-15-[address] Shankar Callahan Work Phone: [facility] Start: 04-01-2022 End: 04-01-[address] Shankar Callahan Work Phone: [facility] Start: 02-19-2022 End: 02-19-[address] Shankar Callahan Work Phone: [facility] Start: 02-19-2022 End: 02-19-[address] Shankar Callahan Work Phone: [facility] Start: 01-19-2022 End: 01-19-2022 Patient encounter procedure [facility] Procedures Date Procedure Procedure Detail Performing Clinician Start: 07-03-2025 Urnls dip stick/tabl et reagent auto microscopy Dr. Shankar Callahan MD Work Phone: Start: 07-03-2025 Plain chest X-ray Dr. Fred Callahan MD Work Phone: Start: 07-03-[address] Shankar Callahan MD Work Phone: Start: 07-02-2025 Prostate specific antigen measurement Dr. Shankar Callahan MD Work Phone: Comment on above: This test was perfor med using the [employer] tPSA method. Measured values of a patient sample can vary depending on the testing procedure used. PSA values determined on patient samples by different testing procedures cannot be used interchangeably. If there is a change in PSA assays while monitoring therapy, sequential testing should be performed to confirm baseline values. Start: 05-17-2022 Plain X-ray of toe Dr. Shankar Callahan Work Phone: Start: 05-03-2022 Cardiovascular stres s test using pharmacologic stress agent Dr. Shankar Callahan Work Phone: Start: 02-19-2022 Plain chest X-ray Dr. Fred Callahan Work Phone: History of appendectomy History of append ectomy History of repair of inguinal hernia Hx of right inguinal hernia repair Comment on above: 04/03/2020 History of tonsillectomy History of tonsillectomy Plan of Treatment Date Care Activity Detail Author Patient Education ED AFIB ED Hyp onatremia ED Near-Fainting, Uncertain Cause [facility] Work Phone: Immunizations Immunization Date Immunization Notes Care Provider Fa cility 01-28-2021 [facility] 12-31-2020 [facility] Payers Date Payer Category Payer Self-pay [id number] 2023 Medicare [id number] 2023 [id number] Unknown [id number] Unknown [id number] Unknown [id number] Unknown [id number] Social History Date Type Detail Facility Start: 04-10-2020 End: 06-25-2022 Tobacco smoking status NHIS Unknown if ever smoked [facility] Start: 04-02-2020 Non-smoker [facility] Start: 1945 Sex Assigned At Male W [facility] Start: 07-03-2025 Tobacco smoking stat us NCIS Never smoked tobacco (finding) [facility] Medical Equipment Procedure Code Equipment Code Equipment Origin al Text Equipment Identifier Dates MESH,3DMAX RIGHT LG [id number] FDA Start: 04-03-2020 STAPLER,PROTACK 5MM HERNIA FDA Start: 04-03-2020 MESH,3DMAX RIGHT LG [id number] FDA Start: 04-03-2020 STAPLER,PROTACK 5MM HERNIA FDA Start: 04-03-2020 MESH,3DMAX RIGHT LG [id number] FDA Start: 04-03-2020 STAPLER,PROTACK 5MM HERNIA FDA Start: 04-03-2020 MESH,3DMAX RIGHT LG [id number] FDA Start: 04-03-2020 STAPLER,PROTACK 5MM HERNIA FDA Start: 04-03-2020 MESH,3DMAX RIGHT LG [id number] FDA Start: 04-03-2020 STAPLER,PROTACK 5MM HERNIA FDA Start: 04-03-2020 MESH,3DMAX RIGHT LG [id number] FDA Start: 04-03-2020 STAPLER,PROTACK 5MM HERNIA FDA Start: 04-03-2020 MESH,3DMAX RIGHT LG [id number] FDA Start: 04-03-2020 STAPLER,PROTACK 5MM HERNIA FDA Start: 04-03-2020 MESH,3DMAX RIGHT LG [id number] FDA Start: 04-03-2020 STAPLER,PROTACK 5MM HERNIA FDA Start: 04-03-2020 MESH,3DMAX RIGHT LG [id number] FDA Start: 04-03-2020 STAPLER,PROTACK 5MM HERNIA FDA Start: 04-03-2020 MESH,3DMAX RIGHT LG [id number] FDA Start: 04-03-2020 STAPLER,PROTACK 5MM HERNIA FDA Start: 04-03-2020 Mental Status Date Assessment Result Facility 07-03-2025 Cognitive function Level Of Cons ciousness Awake;Alert;Appropriate;Follow s Commands [facility] Work Phone: Discharge summary 07-03-2025 Note Date & Type Note Facility 07-03-2025 Discharge summary [facility] Radiology Diagnostic study note 07-03-2025 Note Date & Type Note Facility 07-03-2025 Radiology Diagnostic study note [facility] Imaging Services [address] [address] Chest 1 View (Portable) MR#: [id number] Acct: [id number] Name: ANGELY STEINER Rep #: [id number] 27 : 1945 M 80 From: Claire Curran MD PCP: Dr. Shankar Callahan MD Status: REG ER Study:Chest 1 View (Portable) Date of Exam: 07/03/25 Exam# [id number] Ordering Dr: George Riley MD PROCEDURE: CHEST 1 VIEW (PORTABLE) 07/03/2025 REASON FOR EXAM: CORONARY ARTERY DISEASE TECHNIQUE: Frontal view of the chest. COMPARISON: 02/19/2022 FINDINGS: Hardware: EKG leads overlie the chest Heart: The heart size is normal. Lungs: The lungs are clear. Bones: Degenerative changes are identified within the thoracic spine. Other: RAD/Chest 1 View (Portable) IMPRESSION: No acute pulmonary process Reading Location: [id number] CC: Dr. George Riley MD; Dr. Shankar Callahan MD ~ Supervisor Cloth Winding: Signed [facility] Discharge summary 07-03-2025 Note Date & Type Note Facility 07-03-2025 Discharge summary Note Date/Time July 03, 2025 3:39pm [facility] Medical Records Department [address] [place] [address] Emergency Department Summary 07/03/25 MR#: [id number] Acct: [id number] Name: ANGELY STEINER Rep #:[id number] 15 : 1945 80 From: George Riley MD PCP: Dr. Shankar Callahan MD Status:REG ER Location: ED HPI History of Present Illness Chief Complaint: Weakness Narrative Narrative: 80-year-old male past medical history of atrial fibrillation on Eliquis presentswith about a weeks worth of lightheadedness and near syncope. He denies any chest pain or shortness of breath, but states he feels off. He states he cannot tell whether he is in atrial fibrillation or not. He denies any exacerbating or alleviating factors to his lightheadedness. There were times when he felt off balance from right leg sciatica and had to hold onto something. Once again he denies any chest pain or shortness of breath, no nausea or vomiting, no diaphoresis, no diarrhea, no dysuria or hematuria. Some necessarily worse with standing. He had his friend bring him to the emergency department because he was afraid to drive. No headaches. No vertigo. [facility] Medical History Hypokalemia Pericarditis Atrial fibrillation Essential hypertension Right inguinal hernia Right inguinal pain Home Medications ?Medication ?Instructions ?Recorded ?Last Taken ?Type apixaban 5 mg tablet 5 mg PO BID 02/19/22 5 History cyanocobalamin (vitamin B-12) 3,000 mcg PO DAILY 02/1907/03/25 History 1,000 mcg tablet magnesium oxide 400 mg PO DAILY 02/19/22 History metoprolol succinate 100 mg 100 mg PO DAILY 05/04/22 0 07/02/25 History tablet,extended release 24 hr eplerenone 25 mg tablet 25 mg PO DAILY started by TEMO Burrell Dr. 10/26/22 07/03/25 History Shankar Callahan dupilumab 300 mg/2 mL subcutaneous 300 mg subcut Q2W 0 07/25/24 06/25/25 History pen injector (Dupixent) losartan 25 mg tablet 25 mg PO DAILY #90 TABLETS 1 12/20/23 07/02/25 Rx amlodipine 5 mg tablet 5 mg PO BID #180 tabs 07/03/25 Rx Allergy/AdvReac Type Severity Reaction Status Date / Time No Known Allergies Allergy Verified 07/03/25 12:16 Family History Mother Breast cancer Cancer Lung Cancer Father Heart disease Surgical History Hx of right inguinal hernia repair History of appendectomy History of tonsillectomy Social History Smoking Status: Never smoker alcohol intake: current alcohol intake frequency: a few times a week Alcohol type: beer and wine substance use type: does not use caffeine: Yes Type: tea Number of servings: 1 ROS ROS ED ROS Narrative Review of systems positive for lightheadedness intermittently over the last week. No chest pain, no shortness of breath, no fevers or chills, no cough, no nausea, no vomiting, no vertiginous type symptoms. Not necessarily worse with standing. Positive low back and sciatica pain. EXAM Physical Exam Narrative Exam Narrative: Afebrile. Vital signs noted. Nontoxic-appearing. Cardiovascular examination reveals an irregularly irregular rhythm that is rate controlled. Lungs are clear to auscultation bilaterally. Abdomen is soft and nontender without guarding or rebound. Positive bowel sounds. Neurological examination is nonfocal, nonlateralizing. Awake, alert, oriented x 3. No appreciable pedal edema bilaterally. Moves all extremities. Const Vital Signs: 07/03/25 12:13 07/03/25 13:35 07/03/25 13:41 Temperature 97.9 F Temperature Source Oral Pulse Rate 94 Pulse Rate [Lying] 88 Pulse Rate [Sitting (for 1 minute prior to obtaining)] 76 Pulse Rate [Standing (for 1 minute prior to obtaining)] 83 Respiratory Rate 17 Respiratory Effort Normal Respiratory Pattern Normal Blood Pressure 153/94 H Blood Pressure [Lying] 167/88 H Blood Pressure [Sitting (for 1 minute prior to obtaining)] 159/94 H Blood Pressure [Standing (for 1 minute prior to obtaining)] 160/96 H Blood Pressure Mean 113 Blood Pressure Mean [Lying] 114 Blood Pressure Mean [Sitting (for 1 minute prior to obtaining)] 115 Blood Pressure Mean [Standing (for 1 minute prior to obtaining)] 117 Pulse Ox 100 Oxygen Delivery Method Room Air 07/03/25 14:13 Temperature Temperature Source Pulse Rate 75 Pulse Rate [Lying] Pulse Rate [Sitting (for 1 minute prior to obtaining)] Pulse Rate [Standing (for 1 minute prior to obtaining)] Respiratory Rate Respiratory Effort Respiratory Pattern Blood Pressure Blood Pressure [Lying] Blood Pressure [Sitting (for 1 minute prior to obtaining)] Blood Pressure [Standing (for 1 minute prior to obtaining)] Blood Pressure Mean Blood Pressure Mean [Lying] Blood Pressure Mean [Sitting (for 1 minute prior to obtaining)] Blood Pressure Mean [Standing (for 1 minute prior to obtaining)] Pulse Ox Oxygen Delivery Method MDM MDM MDM Narrative Medical decision making narrative: The differential diagnosis includes but not limited to dehydration versus intravascular volume depletion versus orthostatic hypotension. I do not feel heneeds a CT of the brain. He has a normal neurological examination. There has been no trauma. His symptoms have been ongoing for a week. EKG was obtained and interpreted by myself independently as atrial fibrillation at [address] changes. No STEMI. He is not having chest pain so I do not feel he requires a troponin. Patient will be bolused normal saline and orthostatics obtained as well. Chest x-ray will be obtained to help rule out a pneumonia butthe history and physical does not support this as he is had no cough or fever. Urinalysis will be obtained as well to look for infection but he does not have any dysuria or hematuria. I will check a CBC and CMP as well. I reviewed his orthostatics and they are negative for drop in blood pressure or tachycardia. I reviewed his laboratory work and he has slight elevation of his white count of 11.8 which I think is nonspecific, hemoglobin normal at 13.5, platelet count normal at 154. BMP shows hyponatremia of 132 with chloride 96. He was bolused normal saline 1 L intravenously. Glucose appropriately elevated at 122 with normal anion gap of 14. Urinalysis is negative for infection with 0WBCs, no ketones. On my independent interpretation of his chest x-ray in 1 view, there is no evidence of an acute process, no pneumonia or pneumothorax. Ireviewed his radiology report which confirms my independent interpretation. Upon repeat examination, he states he feels no different. He was reassured thatI do not feel that he requires observation or admission at this time. While I am unsure as to the cause of his lightheadedness, it may be more from his atrialfibrillation as he reiterates that he does not feel when he goes in or out of atrial fibrillation, and was diagnosed with that 3 to 5 years ago. He will follow-up with his primary care provider regarding his hyponatremia, and with his flange turner/PA regarding his atrial fibrillation. He is currently rate controlled and is taking Eliquis as well. Return instructions to the emergency department were reviewed. Disposition is discharged home in stable condition. History & Record Review Discussion w/independent historian: Patient Additional record(s) reviewed:: No prior records (No prior ED visits) Lab Data Attestation: I reviewed the patient's lab results. Labs: Laboratory Results - last 24 hr 07/03/25 07/03/25 13:06 14:42 WBC 11.8 H RBC 4.23 L Hgb 13.5 Hct 37.4 L MCV 88.4 MCH 31.9 MCHC 36.1 H RDW Std Deviation 51.0 H RDW Coeff of Roberto 15.8 H Plt Count 154 MPV 8.2 Immature Gran % (Auto) 0.900 Neut % (Auto) 83.9 H Lymph % (Auto) 6.7 L Kimball % (Auto) 7.4 Eos % (Auto) 0.6 Baso % (Auto) 0.5 Absolute Neuts (auto) 9.9 H Absolute Lymphs (auto) 0.79 L Nucleated RBC % 0 Sodium 132 L Potassium 3.6 Chloride 96 L Carbon Dioxide 22.7 Anion Gap 14 BUN 19 Creatinine 0.99 Estim Creat Clear Calc 63.50 Est GFR (MDRD) Non-Af 78 BUN/Creatinine Ratio 18.8 Glucose 122 H Calcium 9.3 Urine Color Yellow Urine Clarity Clear Urine pH 6.5 Ur Specific [place] 1.010 Urine Protein 100 H Urine Glucose (UA) Normal Urine Ketones Negative Urine Occult Blood 10 H Urine Nitrite Negative Urine Bilirubin Negative Urine Urobilinogen Normal Ur Leukocyte Esterase Negative Urine RBC 0 SEEN Urine WBC 0 SEEN Ur Squamous Epith Cells 0 SEEN Urine Bacteria 0 SEEN Urine Mucus 0 SEEN Radiography Chest X-Ray - ED: 1 View, Read by ED Physician, Read by Radiologist and No AcuteDisease Diagnostic Testing: Clinical Impression(s) from Imaging Studies Chest X-Ray 07/03/25 13:18 IMPRESSION: No acute pulmonary process Reading Location: [facility] Discharge Plan Triage Chief Complaint: Weakness ED Provider: George Riley Dx/Rx/DC Orders Clinical Impression: Hyponatremia, Lightheadedness, Atrial fibrillation Instructions: ED AFIB, ED Hyponatremia, ED Near-Fainting, Uncertain Cause Prescriptions: No Action apixaban 5 mg tablet 5 mg PO BID magnesium oxide 400 mg magnesium tablet 400 mg PO DAILY cyanocobalamin (vitamin B-12) 1,000 mcg tablet 3,000 mcg PO DAILY Dupixent Pen 300 mg/2 mL pen injector 300 mg subcut Q2W metoprolol succinate 100 mg tablet extended release 24 hr 100 mg PO DAILY eplerenone 25 mg tablet 25 mg PO DAILY losartan 25 mg tablet 25 mg PO DAILY Qty: 90 3RF amlodipine 5 mg tablet 5 mg PO BID Qty: 180 3RF Primary Care Provider: Shankar Callahan Referrals: Shankar Callahan MD [Primary Care Provider] - 3-5 Days if not improving Angely Paulino BRIM EDGE TRIMMER, BRIM EDGE TRIMMER-C [Med Staff - Adv Practice Prof] - 3-5 Days if not improving Activity Restrictions/Additional Instructions: Follow-up with both cardiology and your primary care provider in the next 3 to 5days. Return to the emergency department with new or worsening symptoms. Print Language: Turkmen Disposition Disposition: Home, Self Care What to do if you have Problems For any increased pain, shortness of breath, bleeding, nausea or vomiting, chestpain, or any unexpected problems, contact your Primary Care Provider. Call [facility] ([phone]) or report to the closest Emergency Room. Call 911 if necessary. 07/03/25 1539 <Electronically signed by George Riley MD> Cosigner Signature (if applicable): CC: Dr. Shankar Callahan MD ~ Signed [facility] Work Phone: Hospital Discharge instructions 07-03-2025 Note Date & Type Note Facility 07-03-2025 Hospital Discharg e instructions Additional Instructions Follow-up with both cardiology and your primary care provider in the next 3 to 5 days. Return to the emergency department with new or worsening symptoms. [facility] Work Phone: Evaluation note Note Date & Type Note Facility Evaluation note No assessment information availa ble [facility] Work Phone: Evaluation note Note Date & Type Note Facility Evaluation note Diagnosis Onset Date Atrial fibrillation acute Essential hypertension acute Hypokalemia acute [facility] Work Phone: Evaluation note Note Date & Type Note Facility Evaluation note Diagnosis Onset Date Essential hypertension acute Hypokalemia acute Atrial fibrillation chronic Essential hypertension acute Hypokalemia acute Atrial fibrillation chronic [facility] Work Phone: Evaluation note Note Date & Type Note Facility Evaluation note Diagnosis Onset Date Essential hypertension acute Hypokalemia acute Atrial fibrillation chronic [facility] Work Phone: Reason for referral (narrative) Note Date & Type Note Facility Reason for referral (narrative) No reason for referral information available [facility] Work Phone: Family History No Family History Records Found Relationship Condition Age at Onset Recorded Date/T nacho mother Malignant neoplasm of breast Unknown Malignant neoplasm Unknown father Cardiac disease Unknown Advance Directives No Advanced Directives Records Found Advance Directive Response Recorded Date/ Time Living Will Yes April 02, 2020 8 :14am Power of Personal Service Representative Yes April 02, 2020 8:14am Advance Directive Response Recorded Date/ Time Living Will Yes April 02, 2020 7 :14am Power of Personal Service Representative Yes April 02, 2020 7:14am Advance Directive Response Recorded Date/ Time Do you have a Healthcare Power of Personal Service Representative? Yes July 03, 2025 1:41pm Chief Complaint and Reason for Visit Chief Complaint A-FIB/REF. AMAYA ([facility] 2001) AFIB Reason for Visit Atrial fibrillation Essential hypertension Hypokalemia Chief Complaint A-FIB/REF. AMAYA ([facility] 2001) AFIB ATRIAL FIBRILLATION ATRIAL FIBRILLATION Reason for Visit Atrial fibrillation Essential hypertension Hypokalemia Chief Complaint A-FIB/REF. AMAYA ([facility] 2001) AFIB ATRIAL FIBRILLATION ATRIAL FIBRILLATION 3 M FU Reason for Visit Essential hypertensi on Hypokalemia Atrial fibrillation Essential hypertension Hypokalemia Atrial fibrillation Chief Complaint ATRIAL FIBRILLATION ATRIAL FIBRILLATION 3 M FU 6 wk FU Reason for Visit Essential hypertensi on Hypokalemia Atrial fibrillation Essential hypertension Hypokalemia Atrial fibrillation Chief Complaint 6 wk FU Reason for Visit Essential hypertensi on Hypokalemia Atrial fibrillation Chief Complaint E ORDER Chief Complaint Admit Date WEAKNESS July 03, 2025 12 :12pm Summary Purpose Additional Source Comments Goals (unrecognized section and content) Goals may be documented in a n alternate sectionGoals may be documented in an alternate sectionGoals may be documented in an alternate sectionGoals may be documented in an alternate sectionGoals may be documented in an alternate sectionGoals may be documented in an alternate sectionGoals may be documented in an alternate sectionGoals may be documented in an alternate sectionGoals may be documented in an alternate sectionGoals may be documented in an alternate section Care Teams (unrecognized sec tion and content) Team Status: Active Member Role Status Dates Dr. Shankar Callahan MD Primary Care Provider Active Team Status: Inactive Member Role Status Dates Dr. Shankar Callahan MD Primary Care Provide r, Attending Provider, Referring Provider Active Team Status: Inactive Member Role Status Dates Dr. Shankar Callahan MD Primary Care Provider Active Angely Hang Lora BRIM EDGE TRIMMER, [employer] EDGE TRIMMER-C Attending Provider Active Team Status: Active Member Role/Relationship Status Dates Dr. Shankar Callahan MD Primary Care Provider Active Team Status: Active Member Role/Relationship Status Dates Dr. Shankar Callahan MD Primary Care Provider Active Start: July 02, 2025 Freddie Choimihaelaastrid BRIM EDGE TRIMMER, BR[employer] EDGE TRIMMER-C Attending Provider Active Start: July 02, 2025 Team Status: Inactive Member Role/Relationship Status Dates Dr. Shankar Callahan MD Primary Care Provider Active Start: July 03, 2025 End: July 03, 2025 George Riley MD Emergency Provider Active Star t: July 03, 2025 End: July 03, 2025 (unrecognized sect ion and content) No Status Records Found INFORMATION SOURCE (unrecogn ized section and content) DATE CREATED AUTHOR 07/04/2025 [facility] FOR RECORDS PERTAINING TO PATIENTS WHO ARE OR HAVE BEEN ENROLLED IN A CHEMICAL DEPENDENCY/SUBSTANCEABUSE PROGRAM, SOME INFORMATION MAY BE OMITTED. This clinical summary was aggregated from multiple sources. Caution should be exercised in using it in the provision of clinical care. This summary normalizes information from multiple sources, and as a consequence, information in this document may materially change the coding, format and clinical context of patient data. In addition, data may be omitted in some cases. CLINICAL DECISIONS SHOULD BE BASED ON THE PRIMARY CLINICAL RECORDS. [employer] provides no warranty or guarantee of the accuracy or completeness of information in this document.
--- NOTE | 2025-07-04 18:24 | ECHOD_ITS ---
Reason For Study Reason For Study: SYNCOPE Procedure This was a 2D Doppler, Color Flow transthoracic echocardiogram. Exam performed portable in patient room. Left Ventricle Normal LV size. Left ventricular systolic function is normal. The left ventricular ejection fraction is 65 %. Unable to assess diastolic dysfunction due to arrhythmia. No regional wall motion abnormalities noted. Right Ventricle Normal RV size. Normal systolic function. Atria The left atrium is severely enlarged. The right atrium is severely enlarged. Mitral Valve The mitral valve is structurally normal. No prolapse or stenosis seen. Mild (1+) mitral valve insufficiency. Tricuspid Valve Normal tricuspid valve. Mild to moderate (1-2+) tricuspid valve insufficiency. Pulmonary artery systolic pressure is 46 mmHg. Aortic Valve Trisinus/trileaflet aortic valve. Mild focal aortic valve thickening. There is no aortic stenosis. Mild (1+) aortic valve insufficiency. Pulmonic Valve Normal pulmonic valve. Moderate (2+) pulmonic valve insufficiency. Great Vessels Normal sized aortic root. Pericardium/Pleural No pericardial effusion. MMode/2D Measurements & Calculations LVIDd: 4.7 cm IVSd: 1.1 cm LVOT diam: 2.0 cm LVIDs: 3.0 cm LVPWd: 1.4 cm LVOT area: 3.3 cm2 RVDd: 3.7 cm FS: 35.4 % CO(Teich): 4.7 l/min Ao root diam: 3.2 cm LAV(MOD- bp): 145.5 ml LAV(MOD- bp) Indexed: 73.2 ml/m2 LAV(MOD- sp2): 144.8 ml LAV(MOD- sp4): 136.3 ml CO(MOD-sp4): 2.2 l/min SV(sp4- el): 31.2 ml LVAd ap4: 20.6 cm2 SV(MOD-sp4): 30.7 ml LVLd ap4: 7.2 cm EDV(MOD-sp4): 50.1 ml SI(MOD-sp4): 15.5 ml/m2 EDV(sp4-el): 50.2 ml LVAs ap4: 11.4 cm2 LVLs ap4: 5.8 cm ESV(MOD-sp4): 19.4 ml ESV(sp4-el): 19.0 ml EF(MOD-sp4): 61.3 % EF(sp4-el): 62.1 % LA A4 area: 39.5 cm2 LA dimension(2D): 5.0 cm RA A4 area: 31.9 cm2 Doppler Measurements & Calculations Ao V2 max: 111.1 cm/sec LV V1 max: 89.3 cm/sec CO(LVOT): 4.7 l/min Ao max P.9 mmHg LV V1 max P.2 mmHg SV(LVOT): 58.8 ml Ao V2 mean: 79.2 cm/sec LV V1 mean P.6 mmHg Ao mean P.8 mmHg LV V1 mean: 58.1 cm/sec Ao V2 VTI: 23.8 cm LV V1 VTI: 18.0 cm AV (velocity ratio): 0.76 YOUNG(I,D): 2.5 cm2 YOUNG(V,D): 2.6 cm2 PA V2 max: 96.5 cm/sec TR max hari: 278.4 cm/sec PA V2 mean: 70.3 cm/sec TR max P.0 mmHg ECHO/Echo Complete Interpretation Summary Exam performed portable in patient room The left ventricular ejection fraction is 65 %. The left atrium is severely enlarged. The right atrium is severely enlarged. Mild (1+) mitral valve insufficiency. Mild to moderate (1-2+) tricuspid valve insufficiency. Mild focal aortic valve thickening. Mild (1+) aortic valve insufficiency. Moderate (2+) pulmonic valve insufficiency. Ordering Physician: Brandi^^^ Referring Physician: SEHRIE CONDE Performed By: Rosa Harkins RCS
--- NOTE | 2025-07-04 18:24 | CDU_ITS ---
Reason For Study Reason For Study: Lightheadedness Rt. Velocities/BP Lt. Velocities/BP Prox CCA 141.7/19.4 cm/sec. Prox CCA 94.2/13.9 cm/sec. Mid CCA 117.4/19.9 cm/sec. Mid CCA 110.7/24.8 cm/sec. Dist CCA 74.4/15.5 cm/sec. Dist CCA 84.2/16.7 cm/sec. Prox ICA 76.9/13.0 cm/sec. Prox ICA 87.9/21.6 cm/sec. Mid ICA 75.6/15.5 cm/sec. Mid ICA 77.4/17.6 cm/sec. Dist ICA 70.3/18.0 cm/sec. Dist ICA 84.2/27.8 cm/sec. Rt. ICA/CCA = 0.7. Lt. ICA/CCA = 0.8. Prox ECA 90.4/11.8 cm/sec. Prox ECA 97.7/21.6 cm/sec. Rt. Vert. 44.0/10.0 cm/sec. Lt. Vert. 53.5/9.1 cm/sec. Right Extracranial There is homogeneous, smooth atherosclerotic plaque noted in the right common carotid artery. There is heterogeneous, smooth atherosclerotic plaque noted in the right internal carotid artery. There is heterogeneous, irregular atherosclerotic plaque noted in the right external carotid artery. Antegrade flow is noted in the right vertebral artery. Left Extracranial There is homogeneous, smooth atherosclerotic plaque noted in the left common carotid artery. There is heterogeneous, irregular atherosclerotic plaque noted in the left internal carotid artery. There is heterogeneous, irregular atherosclerotic plaque noted in the left external carotid artery. Antegrade flow is noted in the left vertebral artery. Procedure Carotid Duplex [id number]. This is a Carotid Duplex examination using B-mode, color flow and specral Doppler. The exam was diagnostic. Exam performed portable in patient room. VL/Carotid Duplex Ultrasound Interpretation Summary Mild (<50%) stenosis right extracranial internal carotid. Mild (<50%) stenosis left extracranial internal carotid. Flow within the vertebral arteries is antegrade bilaterally. Ordering Physician: Syeda Rooney Referring Physician: Shankar Callahan Performed By: Ezequiel Jimenez RVT
[2025-07-04 20:21] LABS: Vitamin B12 3896 pg/mL (180-914); Vitamin D,25 Hydroxy 49.1 ng/mL (30-100)
[2025-07-04] MEDS: APIXABAN 5 MG TABLET PO (21:36)
[2025-07-05 03:22] VITALS: BP 176/96; PULSE 70; RESP 18; TEMP 37.2; O2SAT 100
[2025-07-05 05:56] LABS: Hematocrit 31.6 % (40-54); Hemoglobin 11.5 g/dL (13.0-16.5); Immature Granulocytes Count 0.060 X10^3/uL (0.0-0.0); Mean Corp Hgb Conc 36.4 g/dL (32-36); Mean Corpuscular Volume 87.8 fL (80-94); Mean Platelet Vol. 8.0 fl (6.2-12.0); NRBC Flagged by Analyzer 0 % (0-5); Platelet Count 124 K/mm3 (150-450); RBC Distribution Width CV 15.6 % (11.6-14.6); RBC Distribution Width SD 50.4 fl (35.1-43.9); Red Blood Count 3.60 M/mm3 (4.6-6.2); White Blood Count 9.4 K/mm3 (4.4-11.0)
[2025-07-05 06:08] LABS: Prothrombin Time (Protime)PT. 17.6 SECONDS (11.7-14.9)
[2025-07-05 06:30] VITALS: BP 146/94; PULSE 68; RESP 18; TEMP 36.8; O2SAT 100
[2025-07-05 06:30] LABS: AST(SGOT) 27 U/L (<=37); Alanine Aminotransfer ALT/SGPT 11 U/L (<=46); Albumin, Serum 3.9 g/dL (3.4-4.8); Alkaline Phosphatase 151 U/L (40-129); Anion Gap 12 (5-15); BUN 19 mg/dL (4-19); BUN/Creat Ratio 22.1 RATIO (10-20); Calcium,Total 8.9 mg/dL (7.6-11.0); Carbon Dioxide 21.6 mmol/L (21.0-32.0); Chloride 97 mmol/L (98-108); Estimated Creatinine Clearance 73.95 ml/min (50-250); Globulin 2.6 g/dL (2.2-4.2); Glucose 101 mg/dL (70-99); Potassium 3.4 mmol/L (3.3-5.1)
[2025-07-05 09:00] VITALS: BP 160/82
[2025-07-05 09:14] VITALS: BP 160/82; PULSE 82
[2025-07-05] MEDS: Metoprolol(XL)Succ 100 MG Tablet PO (09:14)
[2025-07-05] MEDS: APIXABAN 5 MG TABLET PO (09:15)
[2025-07-05 14:38] VITALS: BP 149/90; BP 154/88; PULSE 76; RESP 16; TEMP 36.6; O2SAT 95
--- NOTE | 2025-07-05 14:41 | CASEMGMT ---
FORREST Met with patient to complete FORREST form. FORREST form and its content were verbally explained and patient's questions were answered to the best of my ability.? Patient voiced understanding and signed FORREST form.? Patient provided a copy of signed FORREST form and original placed in patient's chart.? Patient had no further questions. Zhanna Wade, Discharge Planning Asst
--- NOTE | 2025-07-05 16:17 | PCM.DC.SUM ---
Providers Date of Admission: 07/04/25 Date of Discharge: 07/05/25 Primary Care Physician: Dr. Sherie Callahan MD Reason For Visit: LIGHTHEADEDNESS Diagnosis Discharge Diagnosis (1) Lightheadedness: Status: Acute Code(s): R42 - Dizziness and giddiness Medications at Discharge Home Medications apixaban 5 mg tablet 5 mg PO BID blood thinner 02/19/22 cyanocobalamin (vitamin B-12) 1,000 mcg tablet 3,000 mcg PO DAILY supplement 02/19/22 metoprolol succinate 100 mg tablet,extended release 24 hr 100 mg PO DAILY heart 05/04/22 eplerenone 25 mg tablet 25 mg PO DAILY heart 10/26/22 dupilumab 300 mg/2 mL subcutaneous pen injector (Dupixent) 300 mg subcut Q2W eczema 07/25/24 amlodipine 5 mg tablet 5 mg PO BID blood pressure #180 tabs 04/29/25 magnesium citrate 125 mg capsule 250 mg PO BID supplement 07/04/25 losartan 50 mg tablet 50 mg PO DAILY #60 tabs 07/05/25 Hospital Course Operations None Procedures 2-D Echocardiogram and - (Carotid Dopplers/CT brain) Summary of Care Provided Minutes Spent on Discharge: 25 Hospital Course: Mr. Manrique is a 80-year-old white male who presented to the emergency department at [facility] on 07/04/2025 with a chief complaint of lightheadedness. The patient had the feeling intermittently that he was going to pass out. He had been seen in the emergency department the day prior to admission but workup was negative and he was feeling little better so he was discharged home. On the morning of admission he felt like he woke up shaky and lightheaded again so he came in for evaluation. He also complained of some intermittent tingling in a localized area of his right thigh but he has some ongoing back issues and this is not new in combination with the lightheadedness. Vital signs were overtly unremarkable in the emergency department other than some mildly elevated blood pressure at 146/87. CBC was unremarkable. Chemistry panel was unremarkable other than an elevated bilirubin which is chronic for him. CT of the brain showed chronic ischemic changes in the occipital lobes bilaterally but no acute findings were noted. B12, folate, and TSH were assessed and all were normal. He felt like he was unsteady and unsafe to return home so the emergency department contacted us for admission. Upon further evaluation he he just felt off. He felt that the lightheadedness was fairly constant and not positional in nature. He had no chest pain or shortness of breath. He had no other neurological symptoms he denied any changes in bowel and bladder but he did feel little nauseated earlier. He felt better at the time of admission. Report in general he was just tired and fatigued. Given these findings he was placed on hospital under observation status and echocardiogram, telemetry overnight, and carotid Dopplers were obtained. His carotid Dopplers were still pending at discharge however previous Dopplers were reviewed from 2019 and he had less than 50% carotid artery stenosis. He did have some vertebral artery disease at that time. These will need followed after discharge as I do not anticipate the read in prior to Tuesday. Echocardiogram was stable compared to previous showing an EF of 65%, severe biatrial enlargement, mild to moderate tricuspid valve insufficiency and moderate pulmonic valve insufficiency with mild aortic valve thickening and insufficiency. Patient states he was able to move independently throughout the room and get up and go to the bathroom and was feeling better overall. Given this, we felt he was safe for discharge home. I did send him home with a Holter monitor for 48 hours to assess for any arrhythmias that could be contributing this. We did not catch anything on telemetry while he was in the hospital but this still could be a contributing factor. His blood pressure was noted to be consistently elevated above goal of 130/80. We uptitrated his losartan from 25 to 50 mg daily. He was asked to follow-up with his primary care physician within the next 1 to 2 weeks and asked him to call his biomedical engineering technician office for outpatient follow-up in the next 2 weeks or at their soonest availability. He is to call on Tuesday. He was discharged home in stable condition on 07/05/2025. Discharge diagnoses: Lightheadedness Fatigue Chronic intermittent hyponatremia Chronic hyperbilirubinemia History of atrial fibrillation Essential hypertension History of inguinal hernia History of pericarditis Psoriasis Hyperglycemia -A1c was 4.8. Physical Exam Narrative Patient states he still has a minimal amount of lightheadedness that comes and goes. He has no other symptoms at this time. We discussed that his echocardiogram was normal. There Dopplers are still pending. He does have a previous carotid duplex in 2019 that showed less than 50% stenosis in the carotids bilaterally. He did have some vertebral stenosis but otherwise unremarkable. Patient states he has been able to get up out of bed independently without any difficulty. Const alert, oriented x3, no apparent distress, average body habitus, no limitations, healthy appearing and well nourished Constitutional Narrative: elderly, white male, sitting up in bed, interacts appropriately, very pleasant General Appearance: cooperative, comfortable, well kempt and well developed Exam Limitations: no limitations HEENT normocephalic, head/scalp atraumatic and hearing grossly normal bilaterally Eyes conjunctivae normal Eyes Narrative: No scleral icterus Resp normal respiratory effort, no retractions, no use of accessory muscles and clear to auscultation bilaterally Auscultation: Negative for rales, rhonchi or wheezes Cardio regular rate, regular rhythm, S1 normal heart sound, S2 normal heart sound, no murmurs, no rub, no gallops and no clicks GI normal to inspection, nondistended, normoactive bowel sounds, soft to palpation and non-tender Extremity no clubbing, cyanosis or edema Extremity Narrative: 2+ pedal pulses Neuro oriented x3, CN's II-XII intact bilaterally, moves all extremities, no focal motor deficits and no sensory deficits noted Speech: speech normal Psych affect normal Psych Narrative: Extremely pleasant Weight / BMI Weight Weight: 80.921 kg Body Mass Index (BMI) 25.6 ABG / Lab / Microbiology Data 07/05/25 04:38 07/05/25 11:00 Laboratory: Laboratory Results - last 24 hr 07/04/25 11:15: Vitamin B12 3896 H, Vitamin D 25-Hydroxy 49.1 07/04/25 21:38: POC Glucose 113 H 07/05/25 04:38: WBC 9.4, RBC 3.60 L, Hgb 11.5 L, Hct 31.6 L, MCV 87.8, MCH 31.9, MCHC 36.4 H, RDW Std Deviation 50.4 H, RDW Coeff of Roberto 15.6 H, Plt Count 124 L, MPV 8.0, Immature Gran % (Auto) 0.600, Neut % (Auto) 78.3 H, Lymph % (Auto) 9.4 L, [place] % (Auto) 9.0, Eos % (Auto) 2.0, Baso % (Auto) 0.7, Absolute Neuts (auto) 7.3, Absolute Lymphs (auto) 0.88, Nucleated RBC % 0, PT 17.6 H, INR 1.4, Sodium 130 L, Potassium 3.4, Chloride 97 L, Carbon Dioxide 21.6, Anion Gap 12, BUN 19, Creatinine 0.85, Estim Creat Clear Calc 73.95, Est GFR (MDRD) Non-Af 89, BUN/Creatinine Ratio 22.1 H, Glucose 101 H, Hemoglobin A1c 4.8, Calcium 8.9, Total Bilirubin 1.64 H, AST 27, ALT 11, Alkaline Phosphatase 151 H, Total Protein 6.5, Albumin 3.9, Globulin 2.6, Albumin/Globulin Ratio 1.5 07/05/25 06:24: POC Glucose 107 H 07/05/25 11:00: Sodium 131 L Microbiology: Microbiology 07/04/25 19:30 Mucosa - Nasopharyngeal Respiratory Panel (PCR) - Final 07/04/25 19:30 Nasal Secretion SARS-CoV-2 Antigen (Rapid) - Final Radiography Diagnostic Testing: Radiology Impression Echocardiogram 07/04/25 18:24 Interpretation Summary Exam performed portable in patient room The left ventricular ejection fraction is 65 %. The left atrium is severely enlarged. The right atrium is severely enlarged. Mild (1+) mitral valve insufficiency. Mild to moderate (1-2+) tricuspid valve insufficiency. Mild focal aortic valve thickening. Mild (1+) aortic valve insufficiency. Moderate (2+) pulmonic valve insufficiency. Ordering Physician: Brandi^^^ Referring Physician: SHERIE CALLAHAN Performed By: Rosa Harkins RCS D/C Instructions Discharge Activity: Return to Normal Activity DC O2, CPAP, BIPAP Needs Home O2 Discharge instructions: No Meaningful Use Info Meaningful Use Meaningful Use Diagnoses (Choose all that apply): None applicable Discharge Plan Admission Admit Date/Time: 07/04/25 15:53 Primary Reason for Your Visit: Lightheadedness Attending Provider: Gayle Subramanian Primary Care Provider: Sherie Callahan Consulting Providers: Syeda Rooney Discharge Orders/Prescriptions Prescriptions: New losartan 50 mg Tablet 50 mg PO DAILY Qty: 60 1RF Continued apixaban 5 mg tablet 5 mg PO BID cyanocobalamin (vitamin B-12) 1,000 mcg tablet 3,000 mcg PO DAILY Dupixent Pen 300 mg/2 mL pen injector 300 mg subcut Q2W magnesium citrate 125 mg capsule 250 mg PO BID metoprolol succinate 100 mg tablet extended release 24 hr 100 mg PO DAILY eplerenone 25 mg tablet 25 mg PO DAILY amlodipine 5 mg tablet 5 mg PO BID Qty: 180 3RF Discontinued losartan 25 mg tablet 25 mg PO DAILY Qty: 90 3RF Other Ambulatory Orders: Cardiac Holter Monitor, 48 Hrs (Routine) Timeframe: 2 Days Facility: [facility] - Location: Cardiovascular Services Ordered By: Dr. Gayle Subramanian Referrals / Follow Up: Sherie Callahan MD [Primary Care Provider] - Within 1 Week Geremias Paulino NP, [facility] [employer] [facility] [Med Staff - Adv Practice Prof] - Within 2 Weeks (Call Tuesday to set up an appointment to be seen at first availability) Disposition Disposition (needs filled in before D/C Order can be placed): Home, Self Care Charges/Coding Visit Charges Inpatient E&M: 71727 Disch Hosp
== END 2025-07-05 17:35 | disposition home or self-care (01) ==
LOC: ED 15:55 → PCU 18:06
PROVIDERS: Admitting Provider Internal Medicine; Emergency Provider Emergency Medicine; PCP Family Medicine; Visit Provider Internal Medicine
DX: I65.23 Occlusion and stenosis of bilateral carotid arteries (principal); I48.0 Paroxysmal atrial fibrillation; R53.1 Weakness; E87.1 Hypo-osmolality and hyponatremia; L40.9 Psoriasis, unspecified; I10 Essential (primary) hypertension; R42 Dizziness and giddiness; R73.9 Hyperglycemia, unspecified; Z79.01 Long term (current) use of anticoagulants; E87.6 Hypokalemia; Z79.899 Other long term (current) drug therapy
CPT/HCPCS: 36415; 70450; 80053; 82306; 82607; 82962; 83036; 83735; 84295; 84443; 85025; 85610; 87633; 87811; 93005; 93306; 93880; 97161; 97165; 99221; 99285; A4216; G0378

== ENCOUNTER → 2025-07-11 | Outpatient (CLI) | payer MEDICARE, OTHER, SELFPAY ==
[2025-07-11 15:41] LABS: CRP < 3.00 mg/L (0.0-3.0)
[2025-07-16 08:09] LABS: Cytoplasmic Ab (C-ANCA) <1:20 titer (Neg:<1:20); Perinuclear Ab (P-ANCA) <1:20 titer (Neg:<1:20)
== END | disposition home or self-care (01) ==
LOC: MFPLAB 11:34
PROVIDERS: PCP Family Medicine; Visit Provider Family Medicine
DX: Z86.73 Personal history of transient ischemic attack (TIA), and cerebral infarction without residual deficits (principal)
CPT/HCPCS: 36415; 86037; 86140

== ENCOUNTER → 2025-07-16 | Outpatient (CLI) | payer MEDICARE, OTHER, SELFPAY ==
--- NOTE | 2025-07-16 09:29 | MRI_ITS ---
PROCEDURE: BRAIN W/WO CONTRAST 07/16/2025 REASON FOR EXAM: RETINAL DISEASE SUGGEST CVA Concern for CVA. Weakness. TECHNIQUE: Procedure Code: [id number] Modality: MR Procedure: BRAIN W/WO CONTRAST Multiplanar and multisequence images were obtained. CONTRAST: Clariscan VOLUME: 18 mL COMPARISON: CT brain dated 07/04/2025. FINDINGS: Brain: Focal area of T2 signal hyperintensity in the left occipital lobe on diffusion-weighted images with a 2nd left punctate area in the left occipital lobe adjacent to the posterior horn of the left lateral ventricle. No corresponding drop on ADC map which appears hyperintense on both foci. Focal heterogeneous pattern of enhancement seen in the left occipital cortex noted after contrast. This corresponds to the area of decreased attenuation on the CT. Additional area of T2 signal hyperintensity throughout the left occipital lobe present. Periventricular T2 signal seen on FLAIR does not demonstrate restricted diffusion. No intracranial mass detected. No evidence of acute hemorrhage. Mild increased T2 signal seen in the jarrett related to small-vessel ischemic changes. No enhancement. No positive mass effect. Ventricles: Mildly dilated but appropriate for age. Major Intracranial Vessels: Normal flow voids Sinuses: Mild mucoperiosteal thickening of the maxillary sinuses. No acute air- fluid levels. Mastoids: Clear Other: No soft tissue abnormality. Normal appearance of the orbits and posterior fossa. 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 No acute intracranial hemorrhage. Mild small-vessel ischemic changes. Reading Location: [id number]
== END | disposition home or self-care (01) ==
LOC: MRI 09:23
PROVIDERS: PCP Family Medicine; Referring Provider Family Medicine; Visit Provider Family Medicine
DX: Z86.73 Personal history of transient ischemic attack (TIA), and cerebral infarction without residual deficits (principal)
CPT/HCPCS: 70553; A9575; A4216

== ENCOUNTER → 2025-07-26 | Outpatient (CLI) | payer MEDICARE, OTHER, SELFPAY | END | disposition home or self-care (01) | LOC: PSN 11:23 | PROVIDERS: PCP Family Medicine; Referring Provider Internal Medicine; Visit Provider Internal Medicine | DX: R42 Dizziness and giddiness (principal) | CPT/HCPCS: 93225; 93226 ==